=== PATIENT | female | born 1950 | race Caucasian/White ===

== ENCOUNTER 2017-09-28 19:46 | Inpatient (IN) | payer MEDICARE ==
[~2017-09-28] VITALS: Ht 160 cm; Wt 69.9 kg
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
--- NOTE | 2017-09-28 20:17 | PCM.EKG ---
[facility] Test Date: 2017-09-28 Test Time: 20:18:44 Pat Name: BI WARD Department: Room: Gender: F Electric Power Line Repairer: KAMILLA : 1950 Requested By: BRENDAN DAVIS Order Number: [id number] Reading MD: Measurements Intervals [place] Rate: 82 P: 54 GA: 168 QRS: 36 QRSD: 80 T: 63 QT: 394 QTc: 460 Interpretive Statements Normal sinus rhythm Septal infarct, age undetermined Abnormal ECG No previous ECG available for comparison Please click the below link to view image of tracing.
[2017-09-28 20:18] LABS: BASOPHIL # 0.1 10^3/uL (0.0-0.1); BASOPHIL % 0.9 % (0.0-0.2); EOSINOPHIL # 0.2 10^3/uL (0.0-0.2); EOSINOPHIL % 2.1 % (0.0-5.0); HEMOGLOBIN 13.2 g/dL (12.0-15.0); LYMPHOCYTES # 2.5 10^3/uL (1.0-4.8); LYMPHOCYTES % 31.6 % (24.0-44.0); MEAN CELL HGB 30.1 pg (26-34); MEAN CELL HGB CONCENTRATION 33.6 g/dL (33-37); MEAN CORP VOLUME 89.5 fL (78-100); MEAN PLATELET VOLUME 8.5 fL (7.8-11.0); MONOCYTES # 0.8 10^3/uL (0.3-0.8); MONOCYTES % 9.5 % (5.0-12.0); NEUTROPHIL # 4.5 10^3/uL (1.8-7.7); NEUTROPHILS % 55.5 % (41.0-85.0); RED CELL DISTRIBUTION WIDTH 13.7 % (11.5-14.5)
[2017-09-28] MEDS ORDERED: LISI10TA2 PO (20:19)
[2017-09-28] MEDS ORDERED: DULO60CA7 PO (20:19)
[2017-09-28] MEDS ORDERED: DONE5TAB7 PO (20:19)
[2017-09-28] MEDS ORDERED: MEMA10TA PO (20:19)
[2017-09-28] MEDS ORDERED: ALPR0.254 PO (20:19)
[2017-09-28 20:34] LABS: ALANINE AMINOTRANSFERASE(ML) 24 U/L (12-78); ALKALINE PHOSPHATASE 131 U/L (50-136); ASPARTATE AMINO TRANSFERASE 13 U/L (0-35); CALCIUM 9.2 mg/dL (8.4-10.5); CARBON DIOXIDE 26.4 mmol/L (20.0-32); GLUCOSE 92 mg/dL (70-110)
[2017-09-28 20:35] LABS: ACETAMINOPHEN < 2 ug/mL (10-30)
--- NOTE | 2017-09-28 21:07 | NUR ---
URINE COLLECTED AND TAKEN TO LAB
[2017-09-28 21:08] LABS: BILIRUBIN,URINE NEGATIVE (NEGATIVE); UROBILINOGEN,URINE NORMAL (NEGATIVE)
[2017-09-28 21:15] VITALS: BP 143/81
[2017-09-28 21:15] LABS: APPEARANCE,URINE CLOUDY (CLEAR); UA COLOR YELLOW (YELLOW)
--- NOTE | 2017-09-28 21:45 | NUR ---
DR CHAMBERLAIN EDP ON PHONE WITH CHAMBERLAIN FOR ADMISSION
[2017-09-28] MEDS ORDERED: ATIVAN IM PRN (22:30)
[2017-09-28 23:00] VITALS: BP 146/83
[2017-09-28] MEDS ORDERED: NAMENDA PO ONE ×2 (23:00)
[2017-09-28] MEDS ORDERED: ARICEPT PO ONE (23:00)
[2017-09-28] MEDS: ATIVAN PO PRN (23:12)
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
--- NOTE | 2017-09-28 23:36 | NUR ---
medications Patient anxious, crying, afraid of being in a new place, ativan 0.5mg given po per prn orders at 2312, RN notified
--- NOTE | 2017-09-29 00:13 | NUR ---
medications No adverse reactions noted at this time to Initial dose of ativan prn
--- NOTE | 2017-09-29 06:09 | NUR ---
PIRP P- DTS/DTO,ALTERATION IN MOOD AND ALTERED THOUGHT PROCESS I- PROVIDE MEDICATION ORDERED,Q 15 MIN. MONITORING,PROVIDE SAFE AND SUPPORTIVE ENVIRONMENT. R- PT. WAS COOPERATIVE BUT FORGETFUL AND REQUIRED ASSIST FOR HS ADLS. TOOK MEDICATION ORDERED. HAS RESTED IN BED WITH EYES CLOSED FOR 5.25 HOURS OF THIS TIME. P-WILL CONTINUE WITH CURRENT TX. PLAN.
[2017-09-29 06:41] LABS: CHOLESTEROL 234 mg/dL (120-240); HDL CHOLESTEROL 25 mg/dL (32-96)
[2017-09-29 07:52] VITALS: BP 120/87
[2017-09-29] MEDS: NAMENDA PO SCH ×2 (08:54→20:58)
[2017-09-29] MEDS: CELEXA PO SCH (08:54)
[2017-09-29] MEDS ORDERED: ARICEPT PO SCH (09:00)
--- NOTE | 2017-09-29 09:59 | DIREP ---
PROCEDURE:CHEST 2 VIEWS COMPARISON:[facility], CR, XRAY CHEST 2 VWS, 12/23/2016, 12:38 PM. INDICATIONS:MEDICAL CLEARANCE FOR [facility] FINDINGS: LUNGS/PLEURA:Chronic mild elevation of the right hemidiaphragm. No significant pulmonary parenchymal abnormalities or pleural effusion. Right upper chest surgical clips. CARDIAC:Normal cardiac silhouette, median sternotomy and normal pulmonary vascularity. Prominent thoracic aortic tortuosity and calcification. MEDIASTINUM:Normal. BONES:Mild thoracic spondylosis OTHER:No additional findings. CONCLUSION:No acute cardiopulmonary process or significant change. Dictated by: Marisol Huitron MD on 09/29/2017 at 09:55 AM
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
[2017-09-29] MEDS: BACTRIM DS PO SCH ×2 (12:55→20:58)
[2017-09-29] MEDS: ATIVAN PO PRN (13:11)
--- NOTE | 2017-09-29 13:11 | NUR ---
agitation pt has become severely agitated, asking for , and crying. ativan administered per prn order. no s/s of distress noted. pt sitting in dayroom participating in group
--- NOTE | 2017-09-29 16:18 | NUR ---
GMAS SCORE 04/23: FINDINGS INDICATE MILD DEPRESSION. Addendum: 09/30/17 at 1618 by Irais MESSER CM Amended: Links added.
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
--- NOTE | 2017-09-29 16:24 | NUR ---
MMSE SCORE 0: PT WAS NOT ABLE TO COGNITIVELY PARTICIPATE IN EXAM DUE TO COGNITION. PT IS NOT ABLE TO ANSWER QUESTIONS OR COMPLETE FULL SENTENCES. Addendum: 09/30/17 at 1626 by Irais MESSER Amended: Links added.
--- NOTE | 2017-09-29 16:56 | NUR ---
PIRP: P: Altered thought process, DTS, DTO I: Provide medications as ordered by physician. Encourage attendance and participation of all groups. Provide groups that require focus and concentration. Assist patient in differentiating between internal and external reality. Allow patient to voice feelings and concerns. R: Patient has taken all medications this shift. She has participated in groups but remains confused and requires prompting. She has been tearful and her memory recall is poor. At times she is unable to formulate complete sentences. She has not made any suicidal comments and has not been combative. P: Continue current plan of care.
[2017-09-29 19:20] VITALS: BP 140/90
[2017-09-29] MEDS: ARICEPT PO SCH (20:58)
--- NOTE | 2017-09-30 05:59 | NUR ---
PIRP P DTS, DTO, Altered thought process, Alteration in mood I Medication compliance to be stressed. Observe patient every 15 minutes for safety. Observe patient for self harm behaviors. Encourage patient to attend groups. Encourage patient to verbalize thoughts and feelings. R Patient has been medication compliant. Patient has been observed every 15 minutes and has been safe. Patient has not displayed any self harm behaviors. Patient to attend groups today. Patient has not verbalized any thoughts this evening. P continue plan of care.
[2017-09-30] MEDS: ATIVAN PO PRN (07:07)
--- NOTE | 2017-09-30 07:09 | NUR ---
agitation pt is severely agitated with uncontrollable crying and shaking. Ativan administered per prn order no s/s of distress noted will cont to monitor
[2017-09-30] MEDS ORDERED: ZESTRIL ONE (07:47)
[2017-09-30] MEDS: BACTRIM DS PO SCH ×2 (07:49→21:34)
[2017-09-30] MEDS: CELEXA PO SCH (07:49)
[2017-09-30] MEDS: NAMENDA PO SCH ×2 (07:49→21:34)
[2017-09-30 08:30] VITALS: BP 151/87
[2017-09-30] MEDS: ZESTRIL PO SCH (08:33)
--- NOTE | 2017-09-30 09:09 | NUR ---
VSEE Pt was seen by Dr. Saunders via telemed. Received orders to increase scheduled Celexa and start scheduled Ativan, see EMAR.
[2017-09-30] MEDS: ATIVAN PO SCH ×2 (10:15→21:34)
[2017-09-30] MEDS ORDERED: CELEXA PO SCH (10:30)
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
--- NOTE | 2017-09-30 16:25 | NUR ---
BIOPSYCHOSOCIAL: SS WAS UNABLE TO COMPLETE BIOPSYCHOSOCIAL DUE TO COGNITION. PT IS UNABLE TO RECALL FAMILY INFORMATION OR IF SHE HAS ANY SIBLINGS OR CHILDREN. PT AT THIS TIME IS NOT EVEN ABLE TO COMPLETE FULL SENTENCES. Addendum: 09/30/17 at 1626 by Irais MESSER Amended: Links added.
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
[2017-09-30 20:18] VITALS: BP 130/72
[2017-09-30] MEDS: ARICEPT PO SCH (21:34)
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
--- NOTE | 2017-10-01 06:03 | NUR ---
PIRP P DTO, Altered thought process, Alteration in Mood I Patient will be observed every 15 minutes for safety. Medication compliance to be stressed. Patient will not exhibit any threatening or assaultive behavior. Observe patient for unusual behavior.Importance of sleep to be stressed. R Patient has been observed every 15 minutes and has done well. Patient has been medication compliant. No threatening behavior has been observed. Patient has been observed to be crying twice but for short periods of time. Patient has slept for 8 hours. P Continue plan of care.
[2017-10-01 07:27] VITALS: BP 123/70
[2017-10-01] MEDS: NAMENDA PO SCH ×2 (08:13→20:50)
[2017-10-01] MEDS: BACTRIM DS PO SCH ×2 (08:13→20:50)
[2017-10-01] MEDS: CELEXA PO SCH (08:14)
[2017-10-01] MEDS: ATIVAN PO SCH ×2 (08:14→20:50)
[2017-10-01] MEDS: ZESTRIL PO SCH (08:14)
--- NOTE | 2017-10-01 17:32 | NUR ---
PIRP P: DTO, Altered thought process, Alteration in mood I: Assess reasons for depression and anxiety, monitor for changes in usual behavior, provide safe and supportive environment, give clear and simple instructions, redirect with verbalization, provide 1:1 to encourage expression of feelings, assess for delusions, assist with differentiating between internal and external reality, re-orient to surroundings as needed, give medications as ordered, teach relaxation techniques, reinforce unit rules R: Pt has had withdrawn, tearful, anxious affect majority of shift. Restless @ times, is able to be redirected with verbalization. Poor memory, requires frequent redirection. Unable to rate depression and anxiety, stated, "I just want to see my . I've got so many grandkids, and they don't even know I'm here." Exhibits word salad @ times, only alert and oriented to self. Isolates to room majority of shift, will come out for meals and snacks. P: Pt unable to voice plan, voices wishes to go home.
[2017-10-01 19:30] VITALS: BP 126/70
[2017-10-01] MEDS: ARICEPT PO SCH (20:50)
--- NOTE | 2017-10-02 05:50 | NUR ---
PIRP P DTS , Altered thought process, Alteration in mood. I Medication compliance to be encouraged. Patient to be monitored every 15 minutes for safety. Decrease self harming behaviors. Good diet encouraged. R Patient has been medication compliant. Patient has been monitored for safety every 15 minutes and has done well. Patient has not displayed any self harming behaviors. Patient ate 100 % of her hs snack. P Continue plan of care.
[2017-10-02] MEDS: CELEXA PO SCH (08:38)
[2017-10-02] MEDS: ATIVAN PO SCH ×2 (08:38→20:10)
[2017-10-02] MEDS: BACTRIM DS PO SCH ×2 (08:38→20:10)
[2017-10-02] MEDS: ZESTRIL PO SCH (08:39)
[2017-10-02] MEDS: NAMENDA PO SCH ×2 (08:45→20:09)
[2017-10-02 09:07] VITALS: BP 114/79
--- NOTE | 2017-10-02 15:51 | NUR ---
PIRP P: Altered thought process, alteration in mood I: Assess for delusional thoughts, assist with differentiating between internal and external reality, give clear and simple instructions, redirect with verbalization, provide safe and supportive environment, provide task-oriented activities, re-orient to surroundings, teach relaxation techniques, reinforce unit rules, provide 1:1 to encourage expression of feelings, give medications as ordered R: Pt has had tearful, anxious affect throughout shift. Does not initiate interaction with peers, but does initiate interaction with staff. Rates depression @ 10 and anxiety @ 8 on 0-10 scale. Has poor memory and requires frequent redirection and re-orientation. Voices wanting to go home to her , or wanting to see . Is able to be redirected with verbalization. Takes medications as ordered, will come out to day room for meal times, participates in some group activities. Has not exhibited threatening or combative behaviors, is not actively exit-seeking. P: Pt reports she will stay until she is discharged by the doctor.
[2017-10-02 19:20] VITALS: BP 116/80
[2017-10-02] MEDS: ARICEPT PO SCH (20:09)
--- NOTE | 2017-10-03 02:48 | NUR ---
PIRP P- ALTERATION IN MOOD AND ALTERATION IN THOUGHT PROCESS I- PROVIDE SAFE AND SUPPORTIVE ENVIRONMENT,Q 15 MIN. MONITORING,PROVIDE MEDICATION ORDERED. R- PT. ORIENTED TO NAME NOT MONTH OR YEAR. DENIED DEPRESSION AND RATED ANXIETY 2. PT. ATTENDED GROUP,ATE SNACKS,PARTICIPATED IN EXERCISES. PT. WAS RESTLESS AND STATED SHE NEEDED TO GO HOME TO HER . REQUIRED REDIRECTING FREQUENTLY BUT EASILY REDIRECTED. TOOK MEDICATION ORDERED. MEDICATION EDUCATION PROVIDED ON LISINOPRIL BUT PT. DID NOT HAVE RECALL ON THE MEDICATION. HAS RESTED IN BED WITH EYES CLOSED FOR 5.50 HOURS OF THIS TIME. P- WILL CONTINUE WITH CURRENT TX. PLAN.
[2017-10-03 08:09] VITALS: BP 111/63
[2017-10-03] MEDS: ZESTRIL PO SCH (08:16)
[2017-10-03] MEDS: CELEXA PO SCH (08:16)
[2017-10-03] MEDS: ATIVAN PO SCH ×3 (08:16→20:28)
[2017-10-03] MEDS: BACTRIM DS PO SCH ×2 (08:16→20:28)
[2017-10-03] MEDS: NAMENDA PO SCH ×2 (08:16→20:28)
--- NOTE | 2017-10-03 16:16 | NUR ---
PIRP: P: ALTERED MOOD, ALTERED THOUGHT PROCESS I: Provide medications as ordered by physician. Encourage attendance and participation of all groups. Allow patient to voice feelings and concerns. Provide groups that require focus and concentration. Assist patient in differentiating between internal and external reality. R: Patient has taken all medications as ordered, but remains tearful and anxious. She is confused but has not been seen hallucinating. She has excessive worry. She has been at times easy to distract but remains focused on her and wanting to go home. She has participated in some groups. P: Continue current plan of care. Dr. Saunders saw patient today and made medication changes. Ativan 0.5 mg po TID and Celexa 30 mg po daily
[2017-10-03 19:10] VITALS: BP 101/63
[2017-10-03] MEDS: ARICEPT PO SCH (20:28)
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
--- NOTE | 2017-10-04 03:10 | NUR ---
PIRP- P- ALTERATION IN MOOD AND ALTERED THOUGHT PROCESS I-PROVIDE MEDICATION ORDERED,Q 15 MIN. MONITORING,PROVIDE 1:1 INTERVENTION ALLOWING PT. TO EXPRESS THOUGHTS AND FEELINGS. R- PT. WAS ORIENTED TO NAME NOT MONTH OR YEAR.DENIES DEPRESSION AND ANXIETY. PT. WAS TEARFUL AND STATED SHE WANTED TO GO HOME TO HER . MINIMALLY PARTICIPATED IN GROUP WITH PROMPTING. ATE PART OF HER SNACK.MEDICATION EDUCATION PROVIDED AND PT. TOOK MEDICATION ORDERED. P- WILL CONTINUE WITH CURRENT TX. PLAN.-
[2017-10-04 07:40] VITALS: BP_SYST 128; BP_SYST 150; BP_DIAS 70; BP_DIAS 72
[2017-10-04] MEDS: ZESTRIL PO SCH (09:10)
[2017-10-04] MEDS: CELEXA PO SCH (09:10)
[2017-10-04] MEDS: ATIVAN PO SCH ×3 (09:10→20:33)
[2017-10-04] MEDS: NAMENDA PO SCH ×2 (09:10→20:33)
[2017-10-04] MEDS: BACTRIM DS PO SCH ×2 (09:10→20:33)
--- NOTE | 2017-10-04 16:37 | NUR ---
PIRP: P: ALTERED MOOD I: Provide medications as ordered by physician. Encourage attendance and participation of all groups. Allow patient to voice feelings and concerns. Monitor patient behavior for changes that may indicate risk of injury to self. R: Patient has been less tearful today but remains confused asking for her . She has participated in groups. Scheduled Ativan TID has seemed to help patient with tearfulness. and anxiety. P: Continue current plan of care.
[2017-10-04 20:10] VITALS: BP 121/79
[2017-10-04] MEDS: ARICEPT PO SCH (20:33)
--- NOTE | 2017-10-05 05:46 | NUR ---
PIRP P DTS,DTO, altered thought process, alteration in mood I Medication compliance to be continued. Decrease self harm behaviors. Monitor patient every 15 minutes, Decrease delusions R Patient has been medication compliant. Patient has not displayed any self harm behaviors . Patient has been observed every 15 minutes. Patient has not displayed any behavior this evening of delusions. Patient has walked in hallway and has been pleasant. P Continue plan of care
[2017-10-05 07:45] VITALS: BP 136/85
[2017-10-05] MEDS: BACTRIM DS PO SCH ×2 (09:06→20:56)
[2017-10-05] MEDS: NAMENDA PO SCH ×2 (09:06→20:56)
[2017-10-05] MEDS: ATIVAN PO SCH ×3 (09:06→20:56)
[2017-10-05] MEDS: ZESTRIL PO SCH (09:07)
[2017-10-05] MEDS: CELEXA PO SCH (09:07)
--- NOTE | 2017-10-05 09:16 | NUR ---
Tx team Pt was seen by Dr. Saunders and tx team. Received orders to increase scheduled Celexa, see EMAR.
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
--- NOTE | 2017-10-05 17:50 | NUR ---
PIRP P: Altered thought process, alteration in mood I: Assess reasons for depression and anxiety, assess for psychotic symptoms, assist with differentiating between internal and external reality, give clear and simple instructions, redirect with verbalization, teach relaxation techniques, provide task-oriented activities, re-orient to surroundings as needed, educate regarding inpatient hospitalization, provide 1:1 to encourage expression of feelings, provide safe and supportive environment, give medications as ordered R: Pt has had tearful, anxious affect sporadically throughout shift. Exhibits word salad and thought blocking @ times, is able to follow simple commands. Denies depression, but is tearful and states, "I want my ." Forgetful, isolates to room @ times. Pleasant when approached by staff and peers; initiates interaction and maintains appropriate boundaries. Has not exhibited threatening or combative behaviors, frequently voices wanting to go home. Participates in group activities but requires active engagement to complete activities. Takes medications as ordered. P: Pt seen by Annabel Yuan increased.
[2017-10-05 20:30] VITALS: BP 100/69
[2017-10-05] MEDS: ARICEPT PO SCH (20:56)
--- NOTE | 2017-10-06 05:15 | NUR ---
PIRP P DTS, DTO , Altered Thought process, Alteration in mood. I Medications to be given as directed by Dr, Patient to be observed every 15 minutes and more often as needed. Reorient patient as needed. Provide one on one time for patient to verbalize . Encourage sleep. R Patient has been medication compliant. Patient has been observed every 15 minutes and has done well. Patient has been reminded that she is in the hospital and that there are visiting hours and her is not here at this time. Patient says Oh OK, then asks again in next few minutes. Patient has slept 7.25 hours so far. P Continue plan of care.
[2017-10-06 07:45] VITALS: BP 110/67
[2017-10-06] MEDS: CELEXA PO SCH (09:29)
[2017-10-06] MEDS: ZESTRIL PO SCH (09:30)
[2017-10-06] MEDS: BACTRIM DS PO SCH ×2 (09:30→20:40)
[2017-10-06] MEDS: NAMENDA PO SCH ×2 (09:30→20:40)
[2017-10-06] MEDS: ATIVAN PO SCH ×3 (09:31→20:40)
[2017-10-06] MEDS: ATIVAN PO PRN (16:49)
--- NOTE | 2017-10-06 16:51 | NUR ---
BEHAVIOR NOTE: Patient has tearful, anxious behavior and can not be redirected. Ativan 0.5 mg po PRN given
--- NOTE | 2017-10-06 17:39 | NUR ---
PIRP P: Altered thought process, alteration in mood I: Monitor for changes in usual behavior, assess reasons for depression and anxiety, provide safe and supportive environment, give clear and simple instructions, assess for hallucinations and delusions, assist with differentiating between internal and external reality, redirect with verbalization, provide 1:1 to encourage expression of feelings, give medications as ordered, provide task-oriented activities, q15 min monitoring R: Pt has had withdrawn, tearful affect throughout shift. Denies depression, but does report anxiety @ 10 on 0-10 scale. States, "I'm not really depressed. I just want to see my ." Pt is alert and oriented to self, exhibits word salad and thought blocking @ times. Requires frequent redirection with verbalization d/t confusion and delusions. Required PRN medication for escalating anxiety and tearfulness. Takes medications as ordered, requires prompting with ADLs and feedings. P: Pt voices wishes to go home. Unable to voice tx plan.
[2017-10-06 19:20] VITALS: BP 97/59
[2017-10-06] MEDS: ARICEPT PO SCH (20:40)
--- NOTE | 2017-10-07 05:21 | NUR ---
PIRP P DTS, Altered thought process,Alteration in mood. I Medications to be given as prescribed by Dr, Decrease self harm behaviors. Observe patient every 15 minutes for safety. Encourage patient to attend group daily. Maintain healthy diet. Encourage 8 hours of sleep nightly. R Patient has been medication compliant and has not displayed ay self harm behaviors. Patient has been observed for safety every 15 minutes. Patient had snack last pm and does eat a healthy diet. Patient has been sleeping and has only got up to go to the bathroom. Patient has had a restful night. P Continue plan of care
[2017-10-07] MEDS: CELEXA PO SCH (08:46)
[2017-10-07] MEDS: NAMENDA PO SCH ×2 (08:46→20:54)
[2017-10-07] MEDS: ATIVAN PO SCH ×3 (08:46→20:54)
[2017-10-07] MEDS: BACTRIM DS PO SCH (08:47)
[2017-10-07] MEDS: ZESTRIL PO SCH (08:47)
[2017-10-07 08:55] VITALS: BP 111/73
--- NOTE | 2017-10-07 13:48 | NUR ---
PLACEMENT: SS VISITED WITH PT'S DAUGHTER REGARDING DISCHARGE PLANNING. PT'S DAUGHTER STATED "WE NEED TO GET HER IN A [facility] MEDICAID PENDING. WE DO NOT HAVE A PREFERENCE, BUT WOULD LIKE HER WITHIN AND HOUR AND A HALF DISTANCE AND SOMEWHERE THAT SPECIALIZES IN MEMORY CARE". SS REACHED OUT TO [facility] BUT THEY CURRENTLY DO NOT HAVE A BED AVAILABLE IN THEIR LOCKED UNIT. SS REACHED OUT TO [facility] WITH [facility], BUT UNFORTUNATELY THEIR CORPORATE DID NOT WANT TO ACCEPT PT AFTER REVIEWING CLINICAL. SS REACHED OUT TO [place] [id number], AND FINALLY SPOKE TO [facility] WHO STATED THEY CURRENTLY HAVE A WAITING LIST FOR THEIR MEDICAID PENDING BEDS AND DO NOT SPECIALIZED IN MEMORY CARE TO TRY THEIR SISTER FACILITY [facility]. SS REACHED OUT TO THE [facility]) AND SPOKE TO RICARDA WHOM STATED THEIR MEMORY CARE UNIT IS CURRENTLY FULL, AND THEY DO NOT TAKE MEDICAID PENDING PATIENTS AND CURRENTLY HAVE A WAIT LIST. SS REACHED OUT TO THE [facility] AND SPOKE TO VINCE CANAS WHOM STATED THEY DID NOT HAVE A LOCKED UNIT OR SPECIALIZE IN MEMORY CARE. SS REACHED OUT TO [facility], BUT THEY DO NOT HAVE A LOCKED UNIT. SS WILL REVISIT WITH PT'S DAUGHTER AND LET HER KNOW HER FINDINGS TO SEE IF [facility], OR [facility] WOULD BE OKAY TO LOOK AT FOR PLACEMENT. SS TO CONTINUE TO FOLLOW AND ASSIST WITH DISCHARGE PLANNING.
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
--- NOTE | 2017-10-07 17:31 | NUR ---
anxiety pt is severely anxious, crying, and unable to console. ativan administered per prn order
--- NOTE | 2017-10-07 17:47 | NUR ---
PIRP: P: ALTERED MOOD. ALTERED THOUGHT PROCESS. I: Provide medications as ordered by physician. Encourage attendance and participation of all groups. Allow patient to voice feelings and concerns. Provide groups that require focus and attention. Assist patient in differentiating between internal and external reality. R: Patient has taken all medications as ordered and has participated in some groups. She continues to be tearful and anxious although she is on scheduled Ativan and received a Ativan PRN today. Her Bactrim has been discontinued. She is confused and disoriented and fixated on seeing her and going home. P: Continue current plan of care.
[2017-10-07 19:20] VITALS: BP 101/62
[2017-10-07] MEDS: ARICEPT PO SCH (20:55)
--- NOTE | 2017-10-08 02:12 | NUR ---
PIRP- P- ALTERED MOOD AND ALTERED THOUGHT PROCESS I-PROVIDE MEDICATION ORDERED,PROVIDE SAFE AND SUPPORTIVE ENVIRONMENT,PROVIDE 1:1 INTERVENTION ALLOWING PT. TO EXPRESS THOUGHTS AND FEELINGS. Q 15 MIN. MONITORING. R-PT. WAS ORIENTED TO NAME NOT MONTH OR YEAR. DENIES DEPRESSION AND ANXIETY THIS SHIFT. PT. WAS TEARFUL TWICE IN GROUP STATING SHE WANTED TO GO HOME TO HER . ATE SNACKS AND PARTICIPATED IN EXERCISES MINIMALLY. EXPRESSED THAT SHE LIKED THE MUSIC. MEDICATION EDUCATION PROVIDED BUT PT. WAS UNABLE TO VOICE RECALL AFTERWARD. PLEASANT AFFECT. TOOK MEDICATION ORDERED. P-WILL CONTINUE WITH CURRENT TX. PLAN.
[2017-10-08 07:41] VITALS: BP 106/67
[2017-10-08] MEDS: ATIVAN PO SCH ×3 (08:14→20:48)
[2017-10-08] MEDS: NAMENDA PO SCH ×2 (08:14→20:48)
[2017-10-08] MEDS: CELEXA PO SCH (08:14)
[2017-10-08] MEDS: ZESTRIL PO SCH (08:14)
--- NOTE | 2017-10-08 18:00 | NUR ---
PIRP: P: DTS, DTO, ALTERATION IN MOOD I: MONITOR PT. Q 15 MINUTES, PROVIDE MEDICATION ORDERED BY PHYSICIAN, PROVIDE QUIET ENVIRONMENT FOR SLEEP AT NIGHT,PROVIDE REALITY ORIENTATION NEEDED, PROVIDE SAFE AND SUPPORTIVE ENVIRONMENT, ENCOURAGE GROUP ATTENDANCE AND PARTICIPATION, R: PT. IS MONITORED Q 15 MINUTES FOR SAFETY AND PT. ROOM IS ACROSS FROM THE DESK, PT. IS TAKING MEDS ORDERED BY PHYSICIAN, PT. HAS A SAFE AND SUPPORTIVE ENVIRONMENT. PT. SLEPT 6.75 HOURS LAST NIGHT. PT. REFUSES TO PARTICIPATE IN GROUP. PT IS VERY TEARFUL MOST OF THE DAY. PT. WANTS TO TO [place] AND SEE HER . THIS AFTERNOON SHE WAS TEARFUL AND AGITATED BECAUSE SHE COULDN'T GO HOME. PRN ATIVAN 0.5 GIVEN AT 1649. PT. HAS CALMED DOWN AT THIS TIME. PT. RATES HER DEPRESSION AND ANXIETY AN 8, PT. DENIES ANY S/H IDEATION. PT. IS ORIENTED X 1. ORIENTED TO NAME ONLY. PT. HAS NOT BEEN EXIT SEEKING TODAY. P: CONTINUE CURRENT TX. PLAN
[2017-10-08 19:30] VITALS: BP 105/72
[2017-10-08] MEDS: ARICEPT PO SCH (20:48)
--- NOTE | 2017-10-09 06:17 | NUR ---
PIRP- P- DTS,DTO AND ALTERATION IN MOOD I- PROVIDE SAFE AND SUPPORTIVE ENVIRONMENT,PROVIDE MEDICATION ORDERED,Q 15 MIN. MONITORING. R-PT. WAS ORIENTED TIMES 1 TO SELF . PT. DENIED DEPRESSION AND ANXIETY. WAS TEARFUL AT TIMES. TOOK MEDICATION ORDERED. DIDN'T EXHIBIT DTO OR DTS THIS SHIFT. HAS RESTED IN BED WITH EYES CLOSED FOR 7.5 HOURS THIS SHIFT. PT. STATES FREQUENTLY THAT SHE SHE WANTED TO GO HOME TO HER . P- WILL CONTINUE WITH CURRENT TX. PLAN.
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
[2017-10-09 08:01] VITALS: BP 99/62
[2017-10-09] MEDS: NAMENDA PO SCH ×2 (08:03→20:46)
[2017-10-09] MEDS: CELEXA PO SCH (08:03)
[2017-10-09] MEDS: ATIVAN PO SCH ×3 (08:03→20:46)
[2017-10-09] MEDS: ZESTRIL PO SCH (09:00)
[2017-10-09] MEDS: ATIVAN PO PRN (10:34)
--- NOTE | 2017-10-09 10:34 | NUR ---
anxiety pt anxious and has uncontrollable crying. unable to console. is aggressive stating "I want my " unable to redirect pt. ativan administered per prn order no s/s of distress noted will monitor
--- NOTE | 2017-10-09 11:45 | NUR ---
statues update pt sitting in day room. s/s of anxiety have been resolved. no s/s of distress noted
--- NOTE | 2017-10-09 16:06 | NUR ---
PIRP: P: ALTERED THOUGHT PROCESS, ALTERED MOOD i: Q 15 MINUTE CHECKS FOR SAFETY, PROVIDER MEDS PRESCRIBED BY PHYSICIAN, PROVIDE SAFE AND SUPPORTIVE ENVIRONMENT, CLEAR AND SIMPLE INSTRUCTIONS, PROVIDE 1:1 FOR PT. TO EXPRESS THOUGHTS AND CONCERNS p; Q 15 MINUTE CHECKS BY STAFF, PT, IS TAKING MEDICATIONS PRESCRIBED BY PHYSICIAN, PT IS IN A SAFE AN SUPPORTIVE ENVIRONMENT. PT. IS ABLE TO UNDERSTAND INSTRUCTIONS. PT. IS ABLE TO EXPRESS THOUGHTS AND CONCERNS. PT. I TEARFUL. SHE WANTS TO GO HOME AND SEE HER . PT. RATES DEPRESSION AND ANXIETY A 6. PT. SEEN BY DR. RIVAS VIA VSEE. ORDER RECEIVED TO START RISPERDAL 0.25 MG BID. PT. HAD PRN ATIVAN .5 MG AT 1040. PT CALMED DOWN. P: CONTNUE CURRENT TX PLAN.
[2017-10-09 19:30] VITALS: BP 102/61
[2017-10-09] MEDS: ARICEPT PO SCH (20:46)
[2017-10-09] MEDS: RISPERDAL PO SCH (20:46)
--- NOTE | 2017-10-09 21:47 | NUR ---
medications No adverse reactions noted at this time to ID of Risperdone given this HS
--- NOTE | 2017-10-10 02:05 | NUR ---
PIRP- P- ALTERED THOUGHT PROCESS,DTO AND DTS I- PROVIDED MEDICATION ORDERED,Q 15 MIN. MONITORING,PROVIDE SAFE AND SUPPORTIVE ENVIRONMENT.PROVIDE MEDICATION EDUCATION. R- ORIENTED TO NAME NOT MONTH OR YEAR. DENIES DEPRESSION AND ANXIETY BUT IS TEARFUL AT TIMES. ATTENDED GROUP AND ATE SNACKS. PT. TALKED ABOUT WANTING TO GO HOME TO HER AND WAS ANXIOUS. TOOK MEDICATION ORDERED. MEDICATION EDUCATION WAS PROVIDED. ASSISTED PT. WITH HS CARE . EXHIBITED NO DTO OR DTS THIS SHIFT. PT. IS RESTING IN BED WITH EYES CLOSED AT THIS TIME. P- WILL CONTINUE WITH CURRENT TX. PLAN.
[2017-10-10 07:52] VITALS: BP 104/70
[2017-10-10] MEDS: CELEXA PO SCH (09:26)
[2017-10-10] MEDS: ATIVAN PO SCH ×3 (09:26→20:44)
[2017-10-10] MEDS: RISPERDAL PO SCH ×2 (09:26→20:44)
[2017-10-10] MEDS: NAMENDA PO SCH ×2 (09:26→20:44)
[2017-10-10] MEDS: ZESTRIL PO SCH (09:27)
--- NOTE | 2017-10-10 15:24 | NUR ---
PLACEMENT CONTINUED: SS REACHED OUT TO [facility] IN [place] TO SEE IF THEY HAD BED AVAILABILITY. ELZIABETH STATED THEY HAD ONE FEMALE BED AVAILABLE, BUT HAD OTHER PEOPLE LOOKING AT IT SO IT WAS MORE OF A WHO COULD GET ALL THE PAPERWORK TURNED IN FIRST TYPE OF THING. SS LET ELIZABETH KNOW THAT PT'S MOTHER WAS AT THEIR FACILITY AND SHE DID NOT KNOW IF THAT WOULD BE AN ISSUE OR NOT. ELIZABETH STATED "I DON'T THINK IT WOULD BE AN ISSUE". SS FAXED OVER PAPERWORK AND IS WAITING TO HEAR BACK FROM [facility] AT THIS TIME.
--- NOTE | 2017-10-10 16:45 | NUR ---
PIRP: P: ALTERED MOOD, ALTERED THOUGHT PROCESS I: Provide medications as ordered by physician. Encourage attendance and participation of all groups. Provide groups that require focus and concentration. Allow patient to voice feelings and concerns. Assist patient in differentiating between internal and external reality. R: Patient has taken all medications as ordered. She has remained confused and tearful/anxious and forgets where the bathroom is. She is tearful and fixated on seeing her and at times can not be consoled. She has not been suicidal or combative. P: Continue current plan of care.
[2017-10-10 19:20] VITALS: BP 102/60
[2017-10-10] MEDS: ARICEPT PO SCH (20:44)
--- NOTE | 2017-10-11 04:57 | NUR ---
PIRP P Altered thought process, Alteration in mood, DTS/O I Patient to remain medication compliant. Monitor patient every 15 minutes for safety. Observe patient for triggers that cause harmful behavior. Encourage patient to sleep 8 hours nightly. R Patient has remained medication compliant. Patient has been monitored for safety and has done well. Patient has not displayed any harmful behavior to herself or others. Patient has slept 8.5 hours so far this evening. Patient has been cooperative with care. P Continue plan of care.
[2017-10-11 07:49] VITALS: BP 116/73
[2017-10-11] MEDS ORDERED: ATIVAN ONE (08:20)
[2017-10-11] MEDS: NAMENDA PO SCH ×2 (08:23→20:45)
[2017-10-11] MEDS: CELEXA PO SCH (08:23)
[2017-10-11] MEDS: RISPERDAL PO SCH ×2 (08:23→20:45)
[2017-10-11] MEDS: ATIVAN PO SCH ×3 (08:23→20:45)
[2017-10-11] MEDS: ZESTRIL PO SCH (08:24)
--- NOTE | 2017-10-11 15:28 | NUR ---
LEGACY: SS REACHED OUT TO ELIZABETH WITH [facility] TO SEE THE STATUS OF PT BUT WAS NOT ABLE TO REACH HER. SS DID LEAVE A VOICEMAIL AND WILL WAIT TO HEAR BACK FROM ELIZABETH. SS REACHED OUT TO [facility] WHO STATED THEY DO TAKE PT'S MEDICAID PENDING BUT DO NOT HAVE A LOCKED UNIT. SS ALSO [facility] SKILLED [facility]ARE WHOM STATED THEY DO NOT HAVE A LOCKED UNIT AND HAVE A LIST FOR MEDICAID PENDING BEDS. SS WILL WAIT TO HEAR BACK FROM PT'S DAUGHTER OR LEGACY REGARDING DISCHARGE PLANNING.
--- NOTE | 2017-10-11 17:46 | NUR ---
NOTIFIED DR. ALVAREZ: Patient complaining of pain in rectum visible hemorrhoid noted. Phone call placed to Dr. Alvarez and message left to call unit.
--- NOTE | 2017-10-11 18:07 | NUR ---
PIRP: P: ALTERED THOUGHT PROCESS I: Provide medications as ordered by physician. Assist patient in differentiating between internal and external reality. Encourage attendance and participation of all groups. Provide groups that require focus and concentration. R: Patient has taken all medications as ordered and has participated in groups. She remains extremely confused and requires assistance with ADL's and doesn't know how to go to the bathroom. She has been tearful most of the day asking "Can I go home and I want to see my ". P: Continue current plan of care. Order received for Preparation H cream.
[2017-10-11 19:20] VITALS: BP 94/58
[2017-10-11] MEDS: ARICEPT PO SCH (20:45)
--- NOTE | 2017-10-12 06:04 | NUR ---
PIRP P DTS, Altered thought process, Alteration in mood I Encourage medication compliance. Observe every 15 minutes for safety. Observe for self harming behavior. Encourage 8 hours of sleep. R Patient has remained medication compliant. Patient has been observed every 15 minutes and has done well. Patient has not displayed any self harming behavior not spoke of hurting herself or anyone else. Patient has slept 8 hours. P continue plan of care.
--- NOTE | 2017-10-12 08:50 | NUR ---
Tx team Pt was seen by Dr. Fowler and tx team. Became tearful and anxious, received orders to increase scheduled Risperdal and begin nutritional supplements, see EMAR.
--- NOTE | 2017-10-12 08:58 | PRM.PN ---
Mood: UP AND DOWN, LABILE AFFECT Sleep: SLEEPING WELL AT NIGHT Appetite: POOR APPETITE, STARTING BOOST SHAKES Suidical thoughts: NONE REPORTED Homicidal thoughts: NONE REPORTED Recent stressors: STRESS OF MENTAL ILLNESS Family support: , HER HAS CANCER Aggressive Behavior: EXIT SEEKING BEHAVIOR Ability to Perform ADL'sc: NEEDS PROMPTING Psychotic sympstoms: DELUSIONAL THINKING, PARANOIA, ODD THINKING Manic Symptoms: MOOD SWINGS, VERY LABILE, CRYING SPELLS Living situation: WAS LIVING WITH HER IN [facility] Illicit Drug usec: NONE REPORTED Alcoholo use: NONE REPORTED Tobacco use: NONE REPORTED Anxity Symptoms: MODERATE TO HIGH ANXIETY LEVEL Anger/Irritablility: PROBLEMS WITH ANGER AND IRRITABILITY Muscle Strength & Tone: WNL Gait & Station: WNL Appearance: Well groomed/hygience, Casual attire, Normal weight, Appears age stated Attitude & Behaviour: Uncooperative, Poor eye contact, Hostile, Psychomotor agitation Mood & Affect: Iabile, Angry, Depressed Orientation: Disoriented to place, Disoriented to time, Disoriented to situation Attention/Concentration: Poor attention, Poor concentration Speech: Reg rate/vol/rhyth/prosod Judgement/Insight: Poor judgement, Poor insight Thought Process: Loose, Tangential, Circumferential Language: Croatian Thought content/Abnormal/Psych: Delusions Fund of Knowledge: Other Associations: [place] Memory (recent and remote): Recent memory repaired, Remote memory repaired Constitutional: None Neurological: None Psychiatric: Depressed, Anxious, Psychosis, Crying [place] I: DELUSIONAL DISORDER, DEPRESSION, ANXIETY, DEMENTIA [place] II: DEFERRED [place] III: REFER TO PMH/MEDICAL CHART [place] IV: STRESS OF MENTAL ILLNESS [place] V: GAF=25 Assessment/Plan Assessment/Plan Assessment/Plan Vital Signs Date Time Temp Pulse Resp B/P (MAP) Pulse Ox O2 Delivery O2 Flow Rate FiO2 10/11/17 19:20 97.9 85 19 94/58 (70) 99 Room Air Allergies Coded Allergies No Known Allergies (Unverified09/28/17) I & O 09/28/17 20:10 Thru 10/11/17 20:00 Intake Total 32395 ml Output Total 342 ml Balance 17287 ml THE PATIENT WAS SEEN BY DR. RIVAS VIA TELEMEDICINE EQUIPMENT (VSEE) ALONG WITH THE TREATMENT TEAM. THE PATIENT'S VITAL SIGNS WERE: BP=91/65, PULSE=72, RESP.=16 , O2 SAT WAS 99% ON RA, TEMP.=98.2. THE PATIENT SLEPT 8.5 HOURS LAST NIGHT. THE PATIENT HAS A POOR APPETITE. THE PATIENT IS GOING TO BE STARTED ON BOOST SHAKES TODAY. THE PATIENT HAS PROBLEMS WITH ANGER AND IRRITABILITY. THE PATIENT HAS CONSTANT CRYING SPELLS. THE PATIENT TAKES NAPS DURING THE DAY. THE PATIENT ISOLATES TO HERSELF. ASSESSMENT: DELUSIONAL DISORDER; PSYCHOSIS; DEMENTIA WITH BEHAVIOR PROBLEMS; MAJOR DEPRESSIVE DISORDER; GENERALIZED ANXIETY DISORDER PLAN: 1) CONTINUE BEHAVIORAL HEALTH MANAGEMENT AT [facility]. 2) INCREASE RISPERDAL TO 0.5MG PO BID. CONTINUE OTHER MEDICATIONS AT CURRENT DOSES. STAFF AGREEABLE WITH THE PLAN. THE PATIENT IS NOT OVERSEDATED FROM HER MEDICATIONS. THE PATIENT DENIES SI OR HI. 16 MINUTES WAS SPENT WITH THE PATIENT IN INSIGHT ORIENTED THERAPY AND SUPPORTIVE THERAPY. Problems: (1) Dementia Status: Acute ICD Code: F03.90 - Unspecified dementia without behavioral disturbance SNOMED: 36926417 (2) Agitated depression Status: Acute ICD Code: F32.2 - Major depressive disorder, single episode, severe without psychotic features SNOMED: 64609640 Patient History: Patient reports no known family medical history. JORDEN RIVAS IV, MD Oct 12, 2017 08:58
[2017-10-12] MEDS: ZESTRIL PO SCH (09:00)
[2017-10-12] MEDS: ATIVAN PO SCH ×3 (09:34→20:47)
[2017-10-12] MEDS: NAMENDA PO SCH ×2 (09:34→20:47)
[2017-10-12] MEDS: CELEXA PO SCH (09:34)
[2017-10-12 10:04] VITALS: BP 91/65
--- NOTE | 2017-10-12 16:13 | NUR ---
LEGACY: SS REATTEMPTED TO CALL AND VISIT WITH ELIZABETH REGARDING PT BUT STILL WAS UNABLE TO REACH HER. VOICEMAIL WAS LEFT.
--- NOTE | 2017-10-12 17:22 | NUR ---
PIRP P: Altered thought process, confusion I: Give medications as ordered, reinforce unit rules, q15 min monitoring, provide safe and supportive environment, give clear and simple instructions, redirect with verbalization, set clear and appropriate boundaries, provide task-oriented activities, provide 1:1 to encourage expression of feelings, teach relaxation techniques R: Pt has had flat, tearful affect throughout shift, irritable @ times. States, "I'm sad because I haven't seen my this morning." Unable to rate anxiety, denies SI/HI. Forgetful, requires frequent re-orientation. Is able to be redirected with verbalization. Isolates to room, but will come out to day room for meals and group activities; will participate with active encouragement. P: Pt started on nutritional supplement d/t poor appetite. Scheduled Risperdal increased.
[2017-10-12 19:30] VITALS: BP 112/70
[2017-10-12] MEDS: ARICEPT PO SCH (20:46)
[2017-10-12] MEDS: RISPERDAL PO SCH (20:47)
--- NOTE | 2017-10-13 05:06 | NUR ---
PIRP P DTS, DTO, Altered thought process, Alteration in mood I Patient to maintain medication compliance. Observe for self harming behaviors and behavioral issues. Observe patient every 15 minutes for safety, Encourage 8 hours fo sleep per night. Encourage one on one time to express feelings/ R Patient has remained medication compliant. Patient has not displayed any self harming behaviors not any behaviors toward other patients. Patient has been observed every 15 minutes. Patient has slept well this evening. Patient speaks of how she wants to talk to and asking where he is. P continue plan of care.
[2017-10-13 08:35] VITALS: BP 104/66
[2017-10-13] MEDS: CELEXA PO SCH (09:32)
[2017-10-13] MEDS: RISPERDAL PO SCH ×2 (09:33→20:37)
[2017-10-13] MEDS: NAMENDA PO SCH ×2 (09:33→20:36)
[2017-10-13] MEDS: ATIVAN PO SCH ×3 (09:34→20:37)
[2017-10-13] MEDS: ZESTRIL PO SCH (09:34)
--- NOTE | 2017-10-13 11:03 | PRM.PN ---
Mood: UP AND DOWN, LABILE MOOD Sleep: SLEPT 9 HOURS LAST NIGHT, NORMALLY SLEEPS WELL Appetite: LOW APPETITE, GETTING BOOST SHAKES, EATS SOME SNACKS Suidical thoughts: NONE REPORTED Homicidal thoughts: NONE REPORTED Recent stressors: STRESS OF MENTAL ILLNESS Family support: Aggressive Behavior: NONE REPORTED, SOME EXIT SEEKING BEHAVIOR Ability to Perform ADL'sc: NEEDS ASSISTANCE Psychotic sympstoms: DELUSIONAL THINKING, ODD THINKING, PARANOIA Manic Symptoms: MOOD SWINGS, CRYING SPELLS Living situation: WAS LIVING AT HOME Illicit Drug usec: NONE REPORTED Alcoholo use: NONE REPORTED Tobacco use: NONE REPORTED Anxity Symptoms: MODERATE ANXIETY LEVEL Anger/Irritablility: SOME ANGER AND IRRITABILITY Muscle Strength & Tone: WNL Gait & Station: Ataxic Appearance: Appears older, Well groomed/hygience, Casual attire, Normal weight Attitude & Behaviour: Uncooperative, Poor eye contact, Psychomotor agitation, Psychomotor retardation Mood & Affect: Euthymic/appr/congruent, Flat, Iabile, Angry, Depressed Orientation: Disoriented to place, Disoriented to time, Disoriented to situation Attention/Concentration: Poor attention, Poor concentration Speech: Impaired Judgement/Insight: Poor judgement, Poor insight Thought Process: Loose, Tangential Language: Cape Verdean Thought content/Abnormal/Psych: Delusions Fund of Knowledge: Other Associations: KRYSTA Memory (recent and remote): Recent memory repaired, Remote memory repaired Constitutional: None Neurological: None Psychiatric: Depressed, Anxious, Psychosis, Crying [place] I: DELUSIONAL DISORDER; PSYCHOSIS, DEPRESSION, ANXIETY, DEMENTIA [place] II: DEFERRED [place] III: REFER TO PMH/MEDICAL CHART [place] IV: STRESS OF MENTAL ILLNESS [place] V: GAF=25 Assessment/Plan Assessment/Plan Assessment/Plan Vital Signs Date Time Temp Pulse Resp B/P (MAP) Pulse Ox O2 Delivery O2 Flow Rate FiO2 10/13/17 09:34 104/66 10/13/17 08:35 98.1 59 20 97 Room Air Allergies Coded Allergies No Known Allergies (Unverified09/28/17) I & O 09/28/17 20:10 Thru 10/13/17 10:00 Intake Total 94246 ml Output Total 342 ml Balance 73256 ml Current Medications Medications (Trade) Dose Ordered Sig/Lluvia Route Start Time Stop Time Status Last Admin Dose Admin Risperidone (Risperdal) 0.5 mg BID PO 10/12/17 21:00 11/11/17 20:59 10/13/17 09:33 Current Medications Medications (Trade) Dose Ordered Sig/Lluvia Route PRN Reason Start Time Stop Time Status Last Admin Dose Admin Donepezil HCl (Aricept) 5 mg DAILY PO 09/29/17 09:00 09/29/17 09:00 DC Miscellaneous Medication (Namenda) 10 mg BID PO 09/29/17 09:00 10/29/17 08:59 10/13/17 09:33 Citalopram Hydrobromide (Celexa) 10 mg DAILY PO 09/29/17 09:00 09/30/17 09:33 DC 09/30/17 07:49 Lorazepam (Ativan) 0.5 mg Q6HR PRN PO AGITATION 09/28/17 22:30 10/28/17 22:29 10/09/17 10:34 Lorazepam (Ativan) 0.5 mg Q6HR PRN IM AGITATION 09/28/17 22:30 10/28/17 22:29 Donepezil HCl (Aricept) 5 mg HS PO 09/29/17 21:00 10/29/17 08:59 10/12/17 20:46 Miscellaneous Medication (Namenda) 10 mg OT ONCE PO 09/28/17 23:00 09/28/17 23:23 DC 09/28/17 23:00 Donepezil HCl (Aricept) 5 mg OT ONCE PO 09/28/17 23:00 09/28/17 23:23 DC 09/28/17 23:00 Miscellaneous Medication (Namenda) 10 mg OT ONCE PO 09/28/17 23:00 09/28/17 23:23 DC Lisinopril (Zestril) 10 mg DAILY PO 09/30/17 09:00 10/30/17 08:59 10/13/17 09:34 Trimethoprim/ Sulfamethoxazole (Bactrim Ds) 1 each BID PO 09/29/17 11:30 10/07/17 08:58 DC 10/07/17 08:47 Lisinopril (Zestril) 10 mg STK-MED ONCE .ROUTE 09/30/17 07:47 09/30/17 07:50 DC Citalopram Hydrobromide (Celexa) 20 mg DAILY PO 10/01/17 09:00 10/03/17 11:11 DC 10/03/17 08:16 Lorazepam (Ativan) 0.5 mg BID PO 09/30/17 10:00 10/03/17 11:11 DC 10/03/17 08:16 Citalopram Hydrobromide (Celexa) 10 mg OT PO 09/30/17 10:30 09/30/17 10:54 DC 09/30/17 10:22 Citalopram Hydrobromide (Celexa) 30 mg DAILY PO 10/04/17 09:00 10/05/17 09:23 DC 10/05/17 09:07 Lorazepam (Ativan) 0.5 mg TID PO 10/03/17 15:00 11/02/17 14:59 10/13/17 09:34 Citalopram Hydrobromide (Celexa) 40 mg DAILY PO 10/06/17 09:00 11/05/17 08:59 10/13/17 09:32 Risperidone (Risperdal) 0.25 mg BID PO 10/09/17 21:00 10/12/17 09:02 DC 10/11/17 20:45 Lorazepam (Ativan) 0.5 mg STK-MED ONCE .ROUTE 10/11/17 08:20 10/11/17 08:22 DC Risperidone (Risperdal) 0.5 mg BID PO 10/12/17 21:00 11/11/17 20:59 10/13/17 09:33 Current Medications Medications (Trade) Dose Ordered Sig/Lluvia Route PRN Reason Start Time Stop Time Status Last Admin Dose Admin Donepezil HCl (Aricept) 5 mg DAILY PO 09/29/17 09:00 09/29/17 09:00 DC Miscellaneous Medication (Namenda) 10 mg BID PO 09/29/17 09:00 10/29/17 08:59 10/13/17 09:33 Citalopram Hydrobromide (Celexa) 10 mg DAILY PO 09/29/17 09:00 09/30/17 09:33 DC 09/30/17 07:49 Lorazepam (Ativan) 0.5 mg Q6HR PRN PO AGITATION 09/28/17 22:30 10/28/17 22:29 10/09/17 10:34 Lorazepam (Ativan) 0.5 mg Q6HR PRN IM AGITATION 09/28/17 22:30 10/28/17 22:29 Donepezil HCl (Aricept) 5 mg HS PO 09/29/17 21:00 10/29/17 08:59 10/12/17 20:46 Miscellaneous Medication (Namenda) 10 mg OT ONCE PO 09/28/17 23:00 09/28/17 23:23 DC 09/28/17 23:00 Donepezil HCl (Aricept) 5 mg OT ONCE PO 09/28/17 23:00 09/28/17 23:23 DC 09/28/17 23:00 Miscellaneous Medication (Namenda) 10 mg OT ONCE PO 09/28/17 23:00 09/28/17 23:23 DC Lisinopril (Zestril) 10 mg DAILY PO 09/30/17 09:00 10/30/17 08:59 10/13/17 09:34 Trimethoprim/ Sulfamethoxazole (Bactrim Ds) 1 each BID PO 09/29/17 11:30 10/07/17 08:58 DC 10/07/17 08:47 Lisinopril (Zestril) 10 mg STK-MED ONCE .ROUTE 09/30/17 07:47 09/30/17 07:50 DC Citalopram Hydrobromide (Celexa) 20 mg DAILY PO 10/01/17 09:00 10/03/17 11:11 DC 10/03/17 08:16 Lorazepam (Ativan) 0.5 mg BID PO 09/30/17 10:00 10/03/17 11:11 DC 10/03/17 08:16 Citalopram Hydrobromide (Celexa) 10 mg OT PO 09/30/17 10:30 09/30/17 10:54 DC 09/30/17 10:22 Citalopram Hydrobromide (Celexa) 30 mg DAILY PO 10/04/17 09:00 10/05/17 09:23 DC 10/05/17 09:07 Lorazepam (Ativan) 0.5 mg TID PO 10/03/17 15:00 11/02/17 14:59 10/13/17 09:34 Citalopram Hydrobromide (Celexa) 40 mg DAILY PO 10/06/17 09:00 11/05/17 08:59 10/13/17 09:32 Risperidone (Risperdal) 0.25 mg BID PO 10/09/17 21:00 10/12/17 09:02 DC 10/11/17 20:45 Lorazepam (Ativan) 0.5 mg STK-MED ONCE .ROUTE 10/11/17 08:20 10/11/17 08:22 DC Risperidone (Risperdal) 0.5 mg BID PO 10/12/17 21:00 11/11/17 20:59 10/13/17 09:33 THE PATIENT WAS SEEN BY DR. RIVAS VIA TELEMEDICINE EQUIPMENT (VSEE) ALONG WITH THE TREATMENT TEAM. THE PATIENT IS SLEEPING WELL AT NIGHT. THE PATIENT CONTINUES TO BE VERY CONFUSED. SHE IS DISORIENTED TO PLACE, TIME, AND SITUATION. THE PATIENT CONTINUES TO HAVE CRYING SPELLS. THE PATIENT HAS A LABILE AFFECT. SHE PERSEVERATES ON BEING WITH HER AND LEAVING THIS FACILITY. SHE DOES NOT TRY TO OPEN DOORS. SHE DOES NOT ANSWER QUESTIONS VERY WELL. SHE NEEDS HELPS WITH HER ADLS. THE PATIENT REPORTS "I'M DOING FINE." THE PATIENT IS REPORTEDLY TAKING HER MEDICATIONS. SHE IS NOT OVERSEDATED FROM HER MEDICATIONS. THE PATIENT HAS A DISORGANIZED THOUGHT PROCESS. SHE CRIED DURING THE INTERVIEW TODAY. ASSESSMENT: DELUSIONAL DISORDER; PSYCHOSIS; DEPRESSION; GENERALIZED ANXIETY DISORDER; DEMENTIA WITH BEHAVIOR PROBLEMS PLAN: 1) CONTINUE BEHAVIORAL HEALTH MANAGEMENT AT [facility]. 2) CONTINUE CURRENT MEDICATIONS. STAFF AGREEABLE WITH THE PLAN. SUPPORTIVE THERAPY GIVEN. THE PATIENT DENIES SI OR HI. SAFETY PLANS WERE DISCUSSED. Problems: (1) Dementia Status: Acute ICD Code: F03.90 - Unspecified dementia without behavioral disturbance SNOMED: 88588305 (2) Agitated depression Status: Acute ICD Code: F32.2 - Major depressive disorder, single episode, severe without psychotic features SNOMED: [id number] Patient History: Patient reports no known family medical history. JORDEN RIVAS IV, MD Oct 13, 2017 11:03
--- NOTE | 2017-10-13 13:24 | NUR ---
LEGACY: ELIZABETH CALLED AND SPOKE TO ELIZABETH WHOM STATED "UNFORTUNATELY WE ARE GOING TO BE UNABLE TO TAKE PT AT THIS TIME. THE ONE FEMALE BED WE HAVE AVAILABLE WE DO NOT FEEL LIKE WOULD BE A GOOD FIT. THAT PT ALSO HAS SUICIDAL AND HOMICIDAL IDEATIONS AND I DO NOT THINK THE TWO OF THEM TOGETHER WOULD BE A GOOD IDEAL, BUT I DID PUT HER ON A WAIT LIST SO WHEN A BED DOES COME AVAILABLE I WILL CALL THE FAMILY AND LET THEM KNOW AND MAYBE BY THAT TIME SHE WILL ALSO HAVE HER MEDICAID IN PLACE". SS CALLED PT'S DAUGHTER AND LET HER KNOW OF ABOVE DOCUMENTATION. PT'S DAUGHTER STATED THAT THEY WOULD LIKE TO TRY THE CLOSEST FACILITY THAT HAS A LOCKED UNIT AND WOULD BE WILLING TO TAKE HER MEDICAID PENDING. SS LET PT KNOW THE CLOSES FACILITY TO [place] WOULD BE [facility] IN [place]. PT'S DAUGHTER STATED "I APPRECIATE YOU TRYING AND HOPEFULLY WE CAN GET HER PLACED SOMEWHERE". SS CALLED AND SPOKE TO KIRK METZGER WITH [facility] WHOM STATED SHE WOULD REVIEW PT'S CLINICAL AND THEN WOULD SEND SOMEONE TO EVALUATE HER FOR THEIR LOCKED UNIT. PT IS CURRENTLY PENDING ACCEPTANCE INTO [facility].
--- NOTE | 2017-10-13 18:44 | NUR ---
PIRP P: Altered thought process, alteration in mood, confusion I: Assess for delusional thoughts, assess reasons for anxiety and depression, redirect with verbalization, q15 min monitoring, assist with differentiating between internal and external reality, give clear and simple instructions, provide safe and supportive environment, provide 1:1 to encourage expression of feelings R: Pt has had flat affect throughout shift, irritable @ times. Unable to rate depression and anxiety, continues to have tearful episodes. Exhibits thought blocking and word salad @ times. Withdraws to room, wanders, able to be redirected with verbalization. Takes medications as ordered, will participate in some group activities with prompting. P: Plans for pt to discharge to [facility] tuesday or tuesday next week.
[2017-10-13 19:30] VITALS: BP 97/64
[2017-10-13] MEDS: ARICEPT PO SCH (20:37)
--- NOTE | 2017-10-14 04:42 | NUR ---
PIRP P DTS, DTO, Altered thought process, alteration in mood I Encourage medication compliance. Monitor patient every 15 minutes for safety. Observe patient for threatening or assaultive behavior. Encourage patient to sleep 8 hours. Observe patient and reassure her if seen crying. R Patient has been medication compliant. Patient monitored every 15 minutes for safety and has done well. Patient has not displayed any threatening behavior this evening. Patient has been cooperative. Patient has slept well this evening. Patient has only been seen crying once this evening. P Continue plan of care.
--- NOTE | 2017-10-14 08:23 | NUR ---
[facility]: KIRK METZGER WITH [facility] STATED THAT THEY WOULD SEND A WORKER OUT TUESDAY TO ASSESS THE PT FOR POSSIBLE ADMISSION INTO THEIR FACILITY.
[2017-10-14] MEDS: NAMENDA PO SCH ×2 (08:43→20:26)
[2017-10-14] MEDS: ATIVAN PO SCH ×3 (08:44→20:26)
[2017-10-14] MEDS: RISPERDAL PO SCH ×2 (08:44→20:26)
[2017-10-14] MEDS: CELEXA PO SCH (08:44)
[2017-10-14] MEDS: ZESTRIL PO SCH (08:45)
[2017-10-14 09:33] VITALS: BP 119/78
--- NOTE | 2017-10-14 18:18 | NUR ---
PIRP P: Altered thought process, alteration in mood I: Monitor for changes in usual behavior, q15 min monitoring, assess for delusional thoughts, assist with differentiating between internal and external reality, give clear and simple instructions, re-orient to surroundings, reinforce unit rules, redirect with verbalization, assess reasons for depression and anxiety, teach coping skills r/t confusion and depression, reinforce unit rules, give medications as ordered, educate regarding involuntary admission R: Pt has had flat affect throughout shift, tearful @ times. Unable to rate depression and anxiety, but does verbalize she is upset and worried. Denies suicidal ideation, no hallucinations noted. Exhibits delusional thoughts throughout shift, able to be redirected with verbalization. States, "I want to go to my sister's and mom's. I want to go home." Isolates to room, will come out to day room with encouragement. P: Plans for pt to be evaluated by [facility] on Tuesday, October 17 for possible placement.
[2017-10-14 19:30] VITALS: BP 110/64
[2017-10-14] MEDS: ARICEPT PO SCH (20:26)
--- NOTE | 2017-10-15 02:01 | NUR ---
PIRP- P- ALTERED THOUGHT PROCESS I- PROVIDE MEDICATION ORDERED,PROVIDE SAFE AND SUPPORTIVE ENVIRONMENT,Q 15 MIN. MONITORING AND PROVIDE 1:1 INTERVENTION ALLOWING PT. TO EXPRESS THOUGHTS AND FEELINGS. R-PT. ORIENTED TO NAME NOT MONTH OR YEAR. RATED DEPRESSION 10 AND ANXIETY 0. PT. WAS TEARFUL AT TIMES STATING SHE WANTED TO GO HOME TO HER . DID NOT PARTICIPATE IN GROUP ACTIVITIES. MEDICATION TEACHING PROVIDED. TOOK MEDICATION ORDERED. P- WILL CONTINUE WITH CURRENT TX. PLAN.
[2017-10-15 08:19] VITALS: BP 114/59
[2017-10-15] MEDS: NAMENDA PO SCH ×2 (08:21→20:40)
[2017-10-15] MEDS: ATIVAN PO SCH ×3 (08:21→20:40)
[2017-10-15] MEDS: CELEXA PO SCH (08:21)
[2017-10-15] MEDS: ZESTRIL PO SCH (08:21)
[2017-10-15] MEDS: RISPERDAL PO SCH ×2 (08:21→20:40)
[2017-10-15] MEDS ORDERED: TYLENOL PO PRN (13:00)
--- NOTE | 2017-10-15 16:01 | NUR ---
PIRP: P: ALTERED MOOD, ALTERED THOUGHT PROCESS I: Provide medications as ordered by physician. Encourage attendance and participation of all groups. Provide groups that require focus and concentration. Allow patient to voice feelings and concerns. Assist patient in differentiating between internal and external reality. R: patient has taken all medications as ordered. She has not effectively participated in groups. She is unable to follow instructions and requires prompting with simple ADL's. She is tearful several times a day. P: COntinue current plan of care.
[2017-10-15 19:15] VITALS: BP 90/50
[2017-10-15] MEDS: ARICEPT PO SCH (20:40)
--- NOTE | 2017-10-16 05:02 | NUR ---
PIRP P- ALTERED THOUGHT PROCESS AND ALTERED MOOD I-PROVIDE MEDICATION ORDERED,PROVIDE SAFE AND SUPPORTIVE ENVIRONMENT AND Q 15 MIN. MONITORING. R-PT. WAS ORIENTED TO NAME NOT MONTH OR YEAR. REQUIRES DIRECTING TO HER ROOM. PT. IS TEARFUL AT TIMES. PT. STATES SHE WANTS TO GO HOME TO HER . TOOK MEDICATION ORDERED. P- CONTINUE WITH CURRENT TX. PLAN.
[2017-10-16 09:42] VITALS: BP 106/78
[2017-10-16] MEDS: NAMENDA PO SCH ×2 (09:44→20:53)
[2017-10-16] MEDS: ATIVAN PO SCH ×2 (09:45→20:52)
[2017-10-16] MEDS: ZESTRIL PO SCH (09:45)
[2017-10-16] MEDS: CELEXA PO SCH (09:45)
[2017-10-16] MEDS: RISPERDAL PO SCH ×2 (09:45→20:52)
--- NOTE | 2017-10-16 10:39 | PRM.PN ---
Mood: UP AND DOWN, LABILE MOOD Sleep: SLEEPING OK AT NIGHT Appetite: NORMAL APPETITE, NEEDS HELP WITH HER EATING Suidical thoughts: NONE REPORTED Homicidal thoughts: NONE REPORTED Recent stressors: STRESS OF MENTAL ILLNESS, STRESS OF MEMORY LOSS Family support: Aggressive Behavior: NONE REPORTED Ability to Perform ADL'sc: NEEDS ASSISTANCE, FUNCTONING HAS DECLINDED Psychotic sympstoms: DELUSIONAL THINKING, SOME ODD THINKING, NO HALLUCINATIONS Manic Symptoms: NONE REPORTED Living situation: WAS LIVING WITH HER , [facility] Illicit Drug usec: NONE REPORTED Alcoholo use: NONE REPORTED Tobacco use: NONE REPORTED Anxity Symptoms: MODERATE ANXIETY LEVEL Anger/Irritablility: SOME ANGER AND IRRITABILITY THAT HAS IMPROVED Muscle Strength & Tone: WNL Gait & Station: Ataxic Appearance: Well groomed/hygience, Casual attire, Normal weight, Appears age stated Attitude & Behaviour: Uncooperative, Poor eye contact Mood & Affect: Euthymic/appr/congruent, Iabile, Depressed Orientation: Disoriented to place, Disoriented to time, Disoriented to situation Attention/Concentration: Poor attention, Poor concentration Speech: Impaired Judgement/Insight: Poor judgement, Poor insight Thought Process: Loose, Tangential Language: Liberian Thought content/Abnormal/Psych: Delusions Fund of Knowledge: Other Associations: KRYSTA Memory (recent and remote): Recent memory repaired, Remote memory repaired Constitutional: None Neurological: None Psychiatric: Depressed, Anxious, Psychosis, Crying [place] I: DELUSIONAL DISORDER; GENERALIZED ANXIETY DISORDER; DEPRESSION; DEMENTIA [place] II: DEFERRED [place] III: REFER TO PMH/MEDICAL CHART [place] IV: STRESS OF MENTAL ILLNESS [place] V: GAF=25 Assessment/Plan Assessment/Plan Assessment/Plan Vital Signs Date Time Temp Pulse Resp B/P (MAP) Pulse Ox O2 Delivery O2 Flow Rate FiO2 10/16/17 09:45 106/78 10/16/17 09:42 98.3 83 18 96 Room Air Allergies Coded Allergies No Known Allergies (Unverified09/28/17) I & O 09/28/17 20:10 Thru 10/16/17 06:37 Intake Total 73331 ml Output Total 342 ml Balance 12649 ml Current Medications Medications (Trade) Dose Ordered Sig/Lluvia Route Start Time Stop Time Status Last Admin Dose Admin Acetaminophen (Tylenol) 500 mg Q6H PRN PO 6/23/18 13:00 11/14/17 12:59 10/15/17 12:46 500 MG THE PATIENT WAS SEEN BY DR. RIVAS VIA TELEMEDICINE EQUIPMENT (VSEE) ALONG WITH THE TREATMENT TEAM. THE PATIENT HAS A LABILE MOOD. THE PATIENT HAS CRYING SPELLS. HER CRYING SPELLS HAVE DECREASED. THE PATIENT HAS DECLINED IN HER COGNITIVE FUNCTIONING. THE PATIENT NEEDS PROMPTING ON HER ADLS. THIS HAS WORSENED SINCE BEING ADMITTED TO THIS FACILITY. THE PATIENT SLEPT 8.5 HOURS LAST NIGHT. THE PATIENT NEEDS HELP WITH HER EATING. THE PATIENT NEEDS HELP WITH HER UTENSILS. THE PATIENT NEEDS HELP GOING TO THE BATHROOM. ASSESSMENT: DELUSIONAL DISORDER; PSYCHOSIS; MAJOR DEPRESSIVE DISORDER; GENERALIZED ANXIETY DISORDER; DEMENTIA WITH BEHAVIOR PROBLEMS. PLAN: 1) CONTINUE BEHAVIORAL HEALTH MANAGEMENT AT [facility]. 2) CONTINUE CURRENT MEDICATIONS. STAFF AGREEABLE WITH THE PLAN. SUPPORTIVE THERAPY GIVEN. THE PATIENT DENIES SI OR HI. SAFETY PLANS WERE DISCUSSED. Problems: (1) Dementia Status: Acute ICD Code: F03.90 - Unspecified dementia without behavioral disturbance SNOMED: 43439540 (2) Agitated depression Status: Acute ICD Code: F32.2 - Major depressive disorder, single episode, severe without psychotic features SNOMED: [id number] Patient History: Patient reports no known family medical history. JORDEN RIVAS IV, MD Oct 16, 2017 10:39
--- NOTE | 2017-10-16 17:08 | NUR ---
PIRP: P: ALTERED MOOD I: Provide medications as ordered by physician. Encourage attendance and participation of all groups, Provide groups that require focus and concentration. Allow patient to voice feelings and concerns. R: Patient has taken all medications as ordered by physician. She has slept most of the day but has been less tearful. She has been confused and disoriented and is unable to perform ADL's and requires prompting in everything. P: Continue current plan of care. Dr. Fowler saw patient today and d/t sleepiness decreased Ativan to 0.5 mg po BID. Plans for discharge this week to half-way.
[2017-10-16 19:53] VITALS: BP 112/67
[2017-10-16] MEDS: ARICEPT PO SCH (20:52)
--- NOTE | 2017-10-17 04:50 | NUR ---
PIRP: P - ALTERATION IN MOOD I - Q15 MINUTE MONITORING, PROVIDE SAFE AND SUPPORTIVE ENVIRONMENT, ALLOW PT TO EXPRESS FEELINGS AND THOUGHTS, PROVIDE COMFORT AND REASSURANCE, ADMINISTER MEDICATION ORDERED, REORIENT NEEDED, ASSESS REASON FOR ANXIETY AND DEPRESSION, ENCOURAGE PARTICIPATION IN GROUP ACTIVITIES, PROMPT PT NEEDED. R - PT IS ALERT AND ORIENTED X 1. PT IS TEARY EYED AND THEN BEGAN TO CRY DUE TO ANXIETY ABOUT SPOUSE AND CHILDREN. PER PT REPORT "I NEED TO CHECK ON THEM, THEY NEED ME". PT TOOK ALL MEDICATIONS ORDERED. PT DENIES ANY SUICIDAL IDEATIONS OR HOMICIDAL THOUGHTS PT RATED DEPRESSION 5/10. PT CONTINUES TO ASK ABOUT SPOUSE AND WHEN HE IS GOING TO VISIT HER. ONCE PT INFORMED THAT HER SPOUSE VISITED EARLIER ON IN THE DAY DURING VISITATION TIME, PT ASKED FOR HER SHOES "SO I CAN GO HOME", PER PT REPORT. PT IS BEING REASSURED AND COMFORTED BY ANOTHER RESIDENT AND REQUESTS I SIT WITH HER THE WHOLE TIME AND NOT LEAVE HER. PT ABLE TO BE COMFORTED AND RE-DIRECTED. PT DID NOT ATTEND GROUP DUE TO TOILETING. PT ATE SOME ICE CREAM, HAD SOME BOOST AND SODA FOR EVENING SNACK. P - WILL CONTINUE WITH CURRENT TREATMENT PLAN.
[2017-10-17] MEDS: NAMENDA PO SCH ×2 (08:29→20:44)
[2017-10-17] MEDS: CELEXA PO SCH (08:29)
[2017-10-17] MEDS: RISPERDAL PO SCH ×2 (08:29→20:45)
[2017-10-17] MEDS: ZESTRIL PO SCH (08:30)
[2017-10-17] MEDS: ATIVAN PO SCH ×2 (08:30→20:44)
[2017-10-17 08:33] VITALS: BP 117/68
--- NOTE | 2017-10-17 11:12 | NUR ---
[facility]: SS CALLED AND SPOKE TO MICHAEL METZGER WITH [facility] REGARDING PT. MICHAEL STATED THEY WOULD SEND SOMEONE OUT TODAY TO EVALUATE PT AND SEE IF SHE WOULD BE A CANDIDATE FOR THEIR LOCKED FACILITY. SS LET MICHAEL KNOW GOAL WAS TO DISCHARGE IN THE NEXT DAY OR TWO TO FACILITY. PT STILL PENDING ACCEPTANCE INTO [facility].
[2017-10-17] MEDS ORDERED: RISP0.2518 PO (14:40)
[2017-10-17] MEDS ORDERED: CITA40TA12 PO (14:40)
[2017-10-17] MEDS ORDERED: LORA-447 PO (14:42)
--- NOTE | 2017-10-17 17:16 | NUR ---
PIRP: P: ALTERED MOOD, DEMENTIA I: Provide medications as ordered by physician. Encourage attendance and participation of all groups. Allow patient to voice feelings and concerns. Assist patient in differentiating between internal and external reality. R: Patient has taken all her medications today but requires them to be crushed. She has mentally declined and can not follow simple commands and requires prompting. She has been tearful today and has had excessive worry. She has not been resistant to care. P: Continue with plan of care.
[2017-10-17 19:30] VITALS: BP 144/51
[2017-10-17] MEDS: ARICEPT PO SCH (20:45)
--- NOTE | 2017-10-18 05:41 | NUR ---
PIRP P- ALTERATION IN MOOD I- PROVIDE MEDICATION ORDERED,Q 15 MIN. MONITORING, PROVIDE SAFE AND SUPPORTIVE ENVIRONMENT. R- PT. WAS TEARFUL THIS SHIFT. TOOK MEDICATION ORDERED. ATTENDED GROUP AND DID NOT INITIATE INTERACTION BUT RESPONDED TO APPROACH WITH WORD [place]. PT. REQUIRED ASSISTANCE WITH ADLS HAS RESTED IN BED WITH EYES CLOSED FOR 6.50 HOURS OF THIS TIME THIS SHIFT. P- WILL CONTINUE WITH CURRENT [place]. PLAN.
[2017-10-18 08:19] VITALS: BP 117/69
[2017-10-18] MEDS: NAMENDA PO SCH ×2 (08:53→20:41)
[2017-10-18] MEDS: ATIVAN PO SCH ×2 (08:53→20:41)
[2017-10-18] MEDS: RISPERDAL PO SCH ×2 (08:53→20:41)
[2017-10-18] MEDS: CELEXA PO SCH (08:53)
[2017-10-18] MEDS: ZESTRIL PO SCH (08:54)
--- NOTE | 2017-10-18 15:23 | NUR ---
PIRP P-ALTERED THOUGH PROCESS I- Q 15 MIN MONITORING, GIVE MEDICATION ORDERED. PROVIDE SUPPORTIVE ENVIRONMENT. HELP PATIENT TO FOCUS ON AREAS IN HER LIFE THAT SHE CAN CONTROL BY ENCOURAGING GROUP PARTICIPATION. R-PATIENT PARTICIPATED IN GROUP, HAD DIFFICULTY WITH GRASPING CERTAIN CONCEPTS OF HAND EYE COORDINATION AND SIMPLE INSTRUCTIONS. PATIENT BECAME TEARFUL SEVERAL TIMES, ASKING ABOUT HER . PATIENT WAS VERY COOPERATIVE WITH RE-DIRECTION AND SOCIALIZING. P-CONTINUE WITH PLAN OF CARE.
[2017-10-18 19:54] VITALS: BP 107/63
[2017-10-18] MEDS: ARICEPT PO SCH (20:41)
--- NOTE | 2017-10-19 05:47 | NUR ---
PIRP P Altered thought process, DTS, Alteration in mood I Maintain medication compliance. Discourage self harming behaviors if occurs. Monitor every 15 minutes for safety. Encourage 8 hours of sleep. Provide one on one time to allow patient to verbalize thoughts feelings R Patient has remained medication compliant and has not displayed any self harming behaviors. Patient monitored every 15 minutes for safety. Patient has slept 7.5 hours so far. Patient speaks of her and how he isnt here . Patient will not speak of anything else. P Continue plan of care.
[2017-10-19 08:06] VITALS: BP 108/61
--- NOTE | 2017-10-19 08:11 | PRM.PN ---
Mood: STABLE, LESS LABILE AFFECT, NOT ABLE TO DESCRIBER HER MOOD Sleep: SLEPT 8 HOURS LAST NIGHT Appetite: POOR APPETITE, SHE GETS BOOST SHAKES Suidical thoughts: NONE REPORTED Homicidal thoughts: NONE REPORTED Recent stressors: STRESS OF MENTAL ILLNESS, POOR MEMORY Family support: Aggressive Behavior: NONE REPORTED Ability to Perform ADL'sc: NEEDS ASSISTANCE Psychotic sympstoms: DELUSIONAL THINKING THAT HAS IMPROVED Manic Symptoms: NONE REPORTED Living situation: GOING TO [facility] IN [place], WAS LIVING AT HOME Illicit Drug usec: NONE REPORTED Alcoholo use: NONE REPORTED Tobacco use: NONE REPORTED Anxity Symptoms: MODERATE ANXIETY LEVEL Anger/Irritablility: LIMITED ANGER AND IRRITABILITY Muscle Strength & Tone: WNL Gait & Station: Ataxic Appearance: Well groomed/hygience, Casual attire, Normal weight, Appears age stated Attitude & Behaviour: Uncooperative, Poor eye contact Mood & Affect: Euthymic/appr/congruent, Iabile, Depressed Orientation: Disoriented to place, Disoriented to time, Disoriented to situation Attention/Concentration: Poor attention, Poor concentration Speech: Impaired Judgement/Insight: Poor judgement, Poor insight Thought Process: Loose, Tangential, Circumferential Language: Bermudian Thought content/Abnormal/Psych: Delusions Fund of Knowledge: Other Associations: KRYSTA Memory (recent and remote): Recent memory repaired, Remote memory repaired Constitutional: None Neurological: None Psychiatric: Depressed, Anxious, Psychosis, Crying [place] I: MAJOR DEPRESSIVE DISORDER, ANXIETY, DELEUSIONAL DISORDER, DEMENTIA WITH BEH [place] II: DEFERRED [place] III: REFER TO PMH/MEDICAL CHART [place] IV: STRESS OF MENTAL ILLNESS [place] V: GAF=25 Assessment/Plan Assessment/Plan Assessment/Plan Vital Signs Date Time Temp Pulse Resp B/P (MAP) Pulse Ox O2 Delivery O2 Flow Rate FiO2 10/19/17 08:06 98.7 88 22 108/61 (40) 97 Room Air Allergies Coded Allergies No Known Allergies (Unverified09/28/17) I & O 09/28/17 20:10 Thru 10/18/17 18:45 Intake Total 54362 ml Output Total 342 ml Balance 49002 ml THE PATIENT WAS SEEN BY DR. RIVAS FACE TO FACE FOR A PSYCHIATRIC EVALUATION ALONG WITH THE TREATMENT TEAM. THE PATIENT HAS BEEN TAKING HER MEDICATIONS. SHE STRUGGLES WITH CONFUSION. SHE HAS BEEN HAVING FEWER CRYING SPELLS. SHE HAS A LABILE AFFECT. THE PATIENT WAS ABLE TO STATE HER FULL NAME. THE PATIENT WAS DISORIENTED TO PLACE, TIME, AND SITUATION. DR. RIVAS SPOKE WITH THE PATIENT'S ABOUT THE TREATMENT PLAN. THE PATIENT HAS STRUGGLED WITH DEPRESSION. THE PATIENT HAS SHOWN IMPROVEMENT IN HER MOOD PER STAFF. THE PATIENT IS NOT HAVING HALLUCINATIONS. THE PATIENT HAS A DISORGANIZED THOUGHT PROCESS. THE PATIENT RESPONDS SLOWLY TO QUESTIONS. THE PATIENT HAS A NORMAL ENERGY LEVEL. THE PATIENT HAS DELUSIONAL THINKING RELATED TO HER DEMENTIA. THE PATIENT HAS NOT BEEN HAVING PROBLEMS WITH ANGER OR IRRITABILITY. THE PATIENT NEEDS HELP WITH HER ADLS. SHE REQUIRES PROMPTING AND REDIRECTION. ASSESSMENT: MAJOR DEPRESSIVE DISORDER; GENERALIZED ANXIETY DISORDER; DELUSIONAL DISORDER; PSYCHOSIS; DEMENTIA WITH BEHAVIOR PROBLEMS PLAN: 1) CONTINUE BEHAVIORAL HEALTH MANAGEMENT AT [facility]. 2) CONTINUE CURRENT MEDICATIONS. STAFF AGREEABLE WITH THE PLAN. THE PATIENT DENIES SI OR HI. 16 MINUTES SPENT IN SUPPORTIVE THERAPY, INSIGHT ORIENTED THERAPY, AND FAMILY COUNSELING. PLAN TO DISCHARGE TO THE [facility] IN [place], [place]. Problems: (1) Dementia Status: Acute ICD Code: F03.90 - Unspecified dementia without behavioral disturbance SNOMED: [id number] Patient History: Patient reports no known family medical history. JORDEN RIVAS IV, MD Oct 19, 2017 08:11
--- NOTE | 2017-10-19 08:30 | NUR ---
Tx team Pt was seen by Dr. Fowler and tx team. Plans for pt to discharge to [facility] if accepted.
[2017-10-19] MEDS: ZESTRIL PO SCH (08:50)
[2017-10-19] MEDS: RISPERDAL PO SCH ×2 (08:50→21:02)
[2017-10-19] MEDS: CELEXA PO SCH (08:50)
[2017-10-19] MEDS: ATIVAN PO SCH ×2 (08:50→21:02)
[2017-10-19] MEDS: NAMENDA PO SCH ×2 (08:50→21:02)
--- NOTE | 2017-10-19 18:49 | NUR ---
PIRP P: Altered thought process, alteration in mood I: q15 min monitoring, provide 1:1 to encourage expression of feelings, redirect with verbalization, give clear and simple instructions, assist with differentiating between internal and external reality, reinforce unit rules, provide task-oriented activities, teach relaxation techniques, provide education regarding discharge planning R: Pt has pleasant affect when approached, isolates to room. Comes out to day room for meals and for group activities with prompting. Forgetful, requires redirection regarding surroundings. Tearful @ times, able to be redirected with verbalization. Denies depression and anxiety, has not exhibited threatening or combative behaviors. Wanders up and down javed but is not exit-seeking. Exhibits word salad @ times. P: Plans for pt to discharge to [facility] if accepted, if not to [facility] in [place], [place].
[2017-10-19] MEDS: ARICEPT PO SCH (21:00)
[2017-10-19 22:28] VITALS: BP 107/64
--- NOTE | 2017-10-20 05:57 | NUR ---
PIRP P DTS, DTO, Altered thought process, Alteration in mood I Maintain medication compliance. Observe for Self harming behaviors. Monitor every 15 minutes for safety. Encourage 8 hours fo sleep nightly. R Patient has remained medication compliant and has not displayed any self harming behaviors. Patient has been monitored every 15 minutes for safety and has slept 8 hours tonight. Patient has only been observed crying once this evening. P Continue plan of care
[2017-10-20 07:44] VITALS: BP 120/66
--- NOTE | 2017-10-20 10:20 | NUR ---
[facility] Attempted to contact Pre[facility] @ [facility] for update regarding acceptance to facility, no answer, left VM.
[2017-10-20] MEDS: RISPERDAL PO SCH ×2 (11:00→20:23)
[2017-10-20] MEDS: NAMENDA PO SCH ×2 (11:00→20:23)
[2017-10-20] MEDS: CELEXA PO SCH (11:00)
[2017-10-20] MEDS: ATIVAN PO SCH ×2 (11:00→20:23)
[2017-10-20] MEDS: ZESTRIL PO SCH (11:01)
--- NOTE | 2017-10-20 12:30 | NUR ---
IZAIAH PICKARD: GUI CONTACTED FACILITY TO RECEIVE UPDATE ON ACCEPTANCE. GUI SPOKE TO OSCAR WHO INFORMED THIS WORKER THAT [facility] IS OUT OF THE OFFICE AND HE IS UNABLE TO PROVIDE AN UPDATE AT THIS TIME. OSCAR INFORMED THIS WORKER THAT HE WILL CALL [facility] ON HER CELL PHONE TO GIVE HER THE INFORMATION AND WILL HAVE HER CALL THE UNIT CHARGE NURSE, BI WITH AN UPDATE.
--- NOTE | 2017-10-20 13:27 | PRM.PN ---
Mood: STABLE, THE PATIENT HAS FEWER CRYING SPELLS Sleep: SLEEPING OK AT NIGHT, SLEPT 8 HOURS LAST NIGHT Appetite: APPETITE HAS IMPROVED, SHE IS NOT DRINKING THE SUPPLEMENTS Suidical thoughts: NONE REPORTED Homicidal thoughts: NONE REPORTED Recent stressors: STRESS OF MENTAL ILLNESS Family support: IS SUPPORTIVE Aggressive Behavior: NONE RECENTLY, LESS CRYING SPELLS Ability to Perform ADL'sc: NEEDS ASSISTANCE, NEEDS PROMPTING Psychotic sympstoms: DELUSIONAL THINKING, NO HALLUCINATIONS Manic Symptoms: NONE REPORTED Living situation: WAS LIVING AT HOME, NEEDS [facility] Illicit Drug usec: NONE REPORTED Alcoholo use: NONE REPORTED Tobacco use: NONE REPORTED Anxity Symptoms: MODERATE ANXIETY LEVEL Anger/Irritablility: MINIMAL ANGER AND IRRITABILITY Muscle Strength & Tone: WNL Gait & Station: Ataxic Appearance: Well groomed/hygience, Casual attire, Normal weight, Appears age stated Attitude & Behaviour: Cooperative/Pleasant, Poor eye contact Mood & Affect: Euthymic/appr/congruent, Iabile, Depressed Orientation: Disoriented to place, Disoriented to time, Disoriented to situation Attention/Concentration: Poor attention, Poor concentration Speech: Impaired Judgement/Insight: Poor judgement, Poor insight Thought Process: Loose, Tangential, Circumferential Language: Northern Irish Thought content/Abnormal/Psych: Delusions Fund of Knowledge: Other Associations: KRYSTA Memory (recent and remote): Recent memory repaired, Remote memory repaired Constitutional: None Neurological: None Psychiatric: Depressed, Anxious, Psychosis, Crying [place] I: DELUSIONAL DISORDER, MAJOR DEPRESSIVE DISORDER, ANXIETY, DEMENTIA [place] II: DEFERRED [place] III: REFER TO PMH/MEDICAL CHART [place] IV: STRESS OF MENTAL ILLNESS [place] V: GAF=25 Assessment/Plan Assessment/Plan Assessment/Plan Vital Signs Date Time Temp Pulse Resp B/P (MAP) Pulse Ox O2 Delivery O2 Flow Rate FiO2 10/20/17 11:01 120/66 10/20/17 07:44 98.3 78 18 98 Room Air Allergies Coded Allergies No Known Allergies (Unverified09/28/17) I & O 09/28/17 20:10 Thru 10/20/17 12:52 Intake Total 22285 ml Output Total 343 ml Balance 29632 ml THE PATIENT WAS SEEN BY DR. RIVAS VIA TELEMEDICINE EQUIPMENT (VSEE) ALONG WITH THE TREATMENT TEAM. THE PATIENT CONTINUES TO BE CONFUSED. SHE IS NOT ABLE TO ANSWER QUESTIONS VERY WELL. ALUMNI SECRETARY IS WORKING ON PLACING THE PATIENT AT [facility] IN [place], [place]. THE PATIENT HAS BEEN TAKING HER MEDICATIONS. SHE IS NOT OVER-SEDATED FROM HER MEDICATIONS. SHE IS HAVING FEWER CRYING SPELLS. HER MOOD HAS BEEN MORE STABLE. SHE DOES NOT VOICE SI OR HI. THE PATIENT HAS BEEN EATING BETTER PER STAFF. THE PATIENT SLEPT 8 HOURS LAST NIGHT. ASSESSMENT: DELUSIONAL DISORDER; MAJOR DEPRESSIVE DISORDER, GENERALIZED ANXIETY DISORDER; DEMENTIA WITH BEHAVIOR PROBLEMS PLAN: 1) CONTINUE BEHAVIORAL HEALTH MANAGEMENT AT THE [facility]. 2) CONTINUE CURRENT MEDICATIONS. THE PATIENT IS TOLERATING HER MEDICATIONS FINE. SUPPORTIVE THERAPY GIVEN. THE PATIENT DENIES SI OR HI. SOCIAL WORKING ON PLACEMENT. HOPE TO GO TO [facility] TODAY OR TOMORROW. Problems: (1) Dementia Status: Chronic ICD Code: F03.90 - Unspecified dementia without behavioral disturbance SNOMED: [id number] (2) Agitated depression Status: Resolved ICD Code: F32.2 - Major depressive disorder, single episode, severe without psychotic features SNOMED: [id number] Patient History: Patient reports no known family medical history. JORDEN RIVAS IV, MD Oct 20, 2017 13:27
--- NOTE | 2017-10-20 13:53 | NUR ---
VSEE Pt was seen by Dr. Fowler via telemd. No new orders received, pt ready for discharge once accepted to facility.
--- NOTE | 2017-10-20 15:00 | NUR ---
[facility] Spoke to [facility] and notified need for acceptance or denial. Reports she will notify Prema as soon as she is out of her meeting.
--- NOTE | 2017-10-20 16:29 | NUR ---
[facility] contacted by this RN and informed of discharge plans discussed with . Spoke to [facility], reports she will contact to get financial info, reports that they may not be able to accept pt until Tuesday, October 24, 2017. Reports she will give call back with update.
--- NOTE | 2017-10-20 16:55 | NUR ---
Lata Nunes Received phone call from [facility], reports that they are willing to accept pt to facility on Tuesday, if [facility] not accept pt by then. Reports she spoke to , Alexei, and that he is agreeable with plan.
--- NOTE | 2017-10-20 18:21 | NUR ---
PIRP P: Altered thought process, alteration in mood I: Monitor for changes in usual behavior, q15 min monitoring, provide safe and supportive environment, give clear and simple instructions, re-orient to surroundings, reinforce unit rules, redirect with verbalization, provide task-oriented activities, assist with differentiating between internal and external reality, give medications as ordered, alternate rest/activity R: Pt has had pleasant, cooperative affect throughout shift. Tearful @ times, but is able to be redirected with verbalization. Denies depression and anxiety despite tearful episodes, reports she wants to see her . States, "Is Alexei going to come get me?" Alert and oriented to self, wanders @ times. Participates in some group activities with prompting. Interacts appropriately with staff. Has not exhibited threatening or combative behaviors. P: Plans for pt to discharge as soon as accepted into facility.
[2017-10-20 19:20] VITALS: BP 98/62
[2017-10-20] MEDS: ARICEPT PO SCH (20:22)
--- NOTE | 2017-10-21 07:18 | NUR ---
PIRP P Danger to self and others, Altered thought process I Patient will remain medication compliant. Self harming behaviors will be discouraged. Monitor patient for safety R Patient has been medication compliant. Patient has not displayed any self harming behaviors. Patient has been monitored for safety and has done well. P Continue plan of care.
[2017-10-21 09:35] VITALS: BP 103/55
[2017-10-21] MEDS: ZESTRIL PO SCH (09:37)
[2017-10-21] MEDS: NAMENDA PO SCH ×2 (09:37→21:04)
[2017-10-21] MEDS: RISPERDAL PO SCH ×2 (09:37→21:04)
[2017-10-21] MEDS: CELEXA PO SCH (09:37)
[2017-10-21] MEDS: ATIVAN PO SCH ×2 (09:37→21:04)
[2017-10-21 20:00] VITALS: BP 145/81
[2017-10-21] MEDS: ARICEPT PO SCH (21:03)
--- NOTE | 2017-10-22 05:43 | NUR ---
PIRP P- DTS,DTO AND ALTERED THOUGHT PROCESS I- PROVIDE SAFE AND SUPPORTIVE ENVIRONMENT,Q 15 MIN. MONITORING,PROVIDE MEDICATION ORDERED. R- PT. WAS ORIENTED TO NAME NOT MONTH OR YEAR. EXHIBITED PLEASANT AFFECT. DECLINED TO ATTEND GROUP AND 1:1 WAS DONE FOR GROUP. HAS NOT BEEN TEARFUL TONIGHT. TOOK MEDICATION ORDERED. HAS NOT EXHIBITED DTO OR DTS THIS SHIFT. HAS RESTED IN BED WITH EYES CLOSED FOR 7 HOURS OF THIS TIME TONIGHT. P- WILL CONTINUE WITH CURRENT [place]. PLAN.
[2017-10-22 07:30] VITALS: BP 112/67
[2017-10-22] MEDS: CELEXA PO SCH (09:02)
[2017-10-22] MEDS: NAMENDA PO SCH ×2 (09:02→20:47)
[2017-10-22] MEDS: ATIVAN PO SCH ×2 (09:02→20:47)
[2017-10-22] MEDS: RISPERDAL PO SCH ×2 (09:03→20:47)
[2017-10-22] MEDS: ZESTRIL PO SCH (09:04)
--- NOTE | 2017-10-22 17:46 | NUR ---
PIRP: P: DTS, ALTERED THOUGHT PROCESS, ALTERATION IN MOOD, ALTERATED THOUGHT PROCESS I: Provide medications as ordered by physician. Encourage attendance and participation of all groups. Provide groups that require focus and concentration. Assist patient in differentiating between internal and external reality. Allow patient to voice feelings and concerns. Monitor patient 's behavior for changes in usual behavior that may indicate risk of injury. R: Patient has taken all medications as ordered and has been confused and disoriented. She has become tearful towards the end of the shift asking for her . She requires constant supervision d/t memory loss. She has not been combative. P: Continue current plan of care . Plans for discharge Tuesday 10/24.
[2017-10-22 19:59] VITALS: BP 111/70
[2017-10-22] MEDS: ARICEPT PO SCH (20:46)
--- NOTE | 2017-10-23 05:31 | NUR ---
PIRP P-ALTERED THOUGHT PROCESS,ALTERATION IN MOOD AND DTS I-PROVIDE MEDICATION ORDERED, Q 15 MIN. MONITORING,PROVIDE SAFE AND SUPPORTIVE ENVIRONMENT. R-PT. WAS ORIENTED TO NAME NOT MONTH OR YEAR. EXHIBITED PLEASANT AFFECT. SMILES AT TIMES AND HAS NOT BEEN TEARFUL THIS SHIFT. ATTENDED GROUP,ATE SNACK AND WAS ASSISTED WITH A SHOWER.TOOK MEDICATION ORDERED. HAS RESTED IN BED WITH EYES CLOSED FOR 7.75 HOURS OF THIS TIME THIS SHIFT. P- WILL CONTINUE WITH CURRENT [place]. PLAN.
[2017-10-23 07:30] VITALS: BP 107/73
[2017-10-23] MEDS: NAMENDA PO SCH ×2 (08:49→20:03)
[2017-10-23] MEDS: ATIVAN PO SCH ×2 (08:49→20:03)
[2017-10-23] MEDS: CELEXA PO SCH (08:49)
[2017-10-23] MEDS: ZESTRIL PO SCH (08:54)
[2017-10-23] MEDS: RISPERDAL PO SCH ×2 (08:55→20:03)
--- NOTE | 2017-10-23 09:36 | PRM.PN ---
Mood: STABLE, LESS CRYING SPELLS, NO BEHAVIOR PROBLEMS, CONFUSED Sleep: SLEEPING WELL AT NIGHT Appetite: APPETITE IS IMPROVED FROM ADMISSION Suidical thoughts: NONE REPORTED Homicidal thoughts: NONE REPORTED Recent stressors: STRESS OF MENTAL ILLNESS Family support: Aggressive Behavior: NONE REPORTED Ability to Perform ADL'sc: NEEDS ASSISTANCE Psychotic sympstoms: DELUSIONAL THINKING RELATED TO DEMENTIA, NO HALLUCINATIONS Manic Symptoms: NONE REPORTED Living situation: STRESS OF MENTAL ILLNESS, MEMORY LOSS Illicit Drug usec: NONE REPORTED Alcoholo use: NONE REPORTED Tobacco use: NONE REPORTED Anxity Symptoms: MODERATE ANXIETY LEVEL Anger/Irritablility: LIMITED ANGER AND IRRITABILITY Muscle Strength & Tone: WNL Gait & Station: Ataxic Appearance: Appears older, Well groomed/hygience, Casual attire, Normal weight Attitude & Behaviour: Cooperative/Pleasant, Good eye contact Mood & Affect: Euthymic/appr/congruent, Iabile, Depressed Orientation: Disoriented to place, Disoriented to time, Disoriented to situation Attention/Concentration: Poor attention, Poor concentration Speech: Impaired Judgement/Insight: Poor judgement, Poor insight Thought Process: Loose, Tangential, Circumferential Language: Sudanese Thought content/Abnormal/Psych: Delusions Fund of Knowledge: Other Associations: KRYSTA Memory (recent and remote): Recent memory repaired, Remote memory repaired Constitutional: None Neurological: None Psychiatric: Depressed, Anxious, Crying [place] I: DELUSIONAL DISORDER, NOBLE, DEPRESSION, DEMENTIA [place] II: DEFERRED [place] III: REFER TO PMH/MEDICAL CHART [place] IV: STRESS OF MENTAL ILLNESS [place] V: GAF=25 Assessment/Plan Assessment/Plan Assessment/Plan Vital Signs Date Time Temp Pulse Resp B/P (MAP) Pulse Ox O2 Delivery O2 Flow Rate FiO2 10/23/17 08:54 107/73 10/23/17 07:30 98.6 76 18 97 Room Air Allergies Coded Allergies No Known Allergies (Unverified09/28/17) I & O 09/28/17 20:10 Thru 10/23/17 05:18 Intake Total 31263 ml Output Total 343 ml Balance 41650 ml THE PATIENT WAS SEEN BY DR. RIVAS VIA TELEMEDICINE EQUIPMENT (VSEE) ALONG WITH THE TREATMENT TEAM. THE PATIENT CONTINUES TO STRUGGLE WITH CONFUSION. SHE HAS BEEN TAKING HER MEDICATIONS. SHE HAS NOT BEEN A BEHAVIOR PROBLEM. THE PATIENT SLEPT 8.25 HOURS LAST NIGHT. THE PATIENT HAS BEEN SLEEPING WELL. SHE HAS BEEN EATING 50-75% OF HER MEALS. THE PATIENT NEEDS TO BE PROMPTED TO EAT HER MEALS. THE PATIENT HAS DELUSIONAL THINKING RELATED TO HER DEMENTIA. THE PATIENT IS NOT HAVING AUDITORY OR VISUAL HALLUCINATIONS. THE PATIENT IS ABLE TO STATE HER NAME. THE PATIENT IS DISORIENTED TO PLACE, TIME, AND SITUATION. THE PATIENT IS NOT HAVING MANIC SYMPTOMS. THE PATIENT HAS A MILD TO MODERATE ANXIETY LEVEL. ASSESSMENT: DELUSIONAL DISORDER; MAJOR DEPRESSIVE DISORDER; GENERALIZED ANXIETY DISORDER; DEMENTIA WITH BEHAVIOR PROBLEMS PLAN: 1) CONTINUE BEHAVIORAL HEALTH MANAGEMENT. PLAN TO DISCHARGE TO [facility] TOMORROW. 2) CONTINUE CURRENT MEDICATIONS. STAFF AGREEABLE WITH THE PLAN. SUPPORTIVE THERAPY GIVEN. THE PATIENT DENIES SI OR HI. THE PATIENT IS READY TO GO TO THE [facility]. Problems: (1) Dementia Status: Chronic ICD Code: F03.90 - Unspecified dementia without behavioral disturbance SNOMED: 28936960 (2) Agitated depression Status: Resolved ICD Code: F32.2 - Major depressive disorder, single episode, severe without psychotic features SNOMED: 21144184 Patient History: Patient reports no known family medical history. JORDEN RIVAS IV, MD Oct 23, 2017 09:36
--- NOTE | 2017-10-23 17:30 | NUR ---
PIRP: P: altered thought process, depression. I: Provide medications as ordered by physician. Encourage attendance and participation of all groups. Assist patient in differentiating between internal and external reality. Allow patient to voice feelings and concerns. R: Patient has taken all medications as ordered. She has been confused and has wandered down hallway. She requires constant supervision d/t cognitive. She has not been combative or tearful this shift. P: Continue current plan of care. Discharge Tuesday to [facility].
[2017-10-23 19:20] VITALS: BP 111/68
[2017-10-23] MEDS: ARICEPT PO SCH (20:03)
--- NOTE | 2017-10-24 03:28 | NUR ---
PIRP P- ALTERED THOUGHT PROCESS,DTS,ALTERED MOOD I-PROVIDE MEDICATION ORDERED.PROVIDE SAFE AND SUPPORTIVE ENVIRONMENT AND Q 15 MIN. MONITORING. R- PT. ORIENTED TO NAME,CHEERFUL AFFECT.ATTENDED GROUP,ATE SNACKS AND STATED SHE DID NOT ACCOMPLISH HER DAILY GOAL. TOOK MEDICATION ORDERED. REQUIRES DIRECTING AT TIMES BUT IS EASILY DIRECTED.HAS NOT EXHIBITED DTS OR OTHERS TONIGHT.HAS NOT BEEN TEARFUL BUT DID SAY SHE WANTED TO GO HOME TO HER . P- WILL CONTINUE WITH CURRENT [place]. PLAN.
[2017-10-24 08:13] VITALS: BP 127/81
[2017-10-24] MEDS: ZESTRIL PO SCH (08:19)
[2017-10-24] MEDS: RISPERDAL PO SCH (08:19)
[2017-10-24] MEDS: ATIVAN PO SCH (08:19)
[2017-10-24] MEDS: CELEXA PO SCH (08:20)
[2017-10-24] MEDS: NAMENDA PO SCH (08:20)
[2017-10-24 09:45] VITALS: BP 127/81
--- NOTE | 2017-10-24 09:45 | NUR ---
REPORT GIVEN: Report given to [facility] Nila Farrell LVN. Patient transported to [facility] with all belongings. Patient escorted out via wheelchair.
[2017-10-24 11:07] VITALS: BP 127/81
--- NOTE | 2017-10-25 00:20 | DSH ---
DATE OF DISCHARGE: 10/24/2017 HOSPITAL COURSE: The patient is a 67-year-old female with a history of delusional disorder, major depression, and Alzheimer type dementia with behavior disturbance. She came from home with irritable and aggressive behavior. She was combative towards her . She was stabilized on the following psychotropic medications: Celexa 40 mg p.o. daily, Aricept 5 mg p.o. at bedtime, Namenda 10 mg p.o. b.i.d., lorazepam 0.5 mg p.o. b.i.d. and Risperdal 0.5 mg p.o. b.i.d. The patient was taking all of her medications. She was having fewer crying spells. She was having a lot of crying spells on admission. She was sleeping better at night. She was eating her meals with prompting. She did need help with her ADLs. She was oriented to person. She was disoriented to place, time, and situation. She took all of her medications. She was able to be easily redirected. She does not have behavior problem. She is not combative or aggressive behavior in the last week in the hospital. Family is from [facility] and wanted her discharged to that area, but we are not able to find placement in that [facility] area. She was sent to the [facility] in [place], [place] which was accepted. The patient's was agreeable with this plan. DISCHARGE DIAGNOSES: Delusional disorder; generalized anxiety disorder; major depressive disorder; Alzheimer type dementia with behavior disturbance. DISCHARGE PLAN: 1. The patient is being discharged to the [facility] in [place], [place] in stable condition. 2. The patient is going to continue her current medications as stated above. She will also takes lisinopril 10 mg p.o. daily for hypertension. 3. She will follow up with a psychiatrist at the [facility] in [place], [place]. Paxton Fowler IV MD DR: /talya JOB# [id number]
== END 2017-10-24 09:45 | DRG 885 ==
LOC: ER 19:46 → EEVIPCON 21:52 → GP 21:52
PROVIDERS: ADMIT Psychiatry & Neurology Psychiatry; ATTEND Psychiatry & Neurology Psychiatry
DX: F33.3 Major depressive disorder, recurrent, severe with psychotic symptoms (principal); F02.81 Dementia in other diseases classified elsewhere, unspecified severity, with behavioral disturbance; N39.0 Urinary tract infection, site not specified; R45.851 Suicidal ideations; N19 Unspecified kidney failure; I10 Essential (primary) hypertension; F41.1 Generalized anxiety disorder; G30.9 Alzheimer's disease, unspecified; Z79.899 Other long term (current) drug therapy
CPT/HCPCS: 36415; 71046; 80053; 80061; 80307; 81000; 82948; 83036; 84443; 84703; 85025; 87077; 87086; 87186; 93005; 97150; 97165; 99285; G0481; G0482; G0483; G8987; G8988

== ENCOUNTER 2018-05-27 18:20 | Inpatient (IN) | payer MEDICARE ==
[~2018-05-27] VITALS: Ht 160 cm; Wt 73.5 kg
[~2018-05-27 18:20] MED LIST: ALPR0.254 PO; CITA40TA12 PO; DONE5TAB7 PO; DULO60CA7 PO; LISI10TA2 PO; LORA-447 PO; MEMA10TA PO; RISP0.2518 PO
[2018-05-27 18:36] VITALS: BP 18/100
[2018-05-27 19:17] LABS: BASOPHIL # 0.1 10^3/uL (0.0-0.1); BASOPHIL % 0.7 % (0.0-0.2); EOSINOPHIL % 0.3 % (0.0-5.0); HEMOGLOBIN 14.3 g/dL (12.0-15.0); LYMPHOCYTES # 2.3 10^3/uL (1.0-4.8); LYMPHOCYTES % 22.4 % (24.0-44.0); MEAN CELL HGB 30.4 pg (26-34); MEAN CORP VOLUME 89.6 fL (78-100); MEAN PLATELET VOLUME 8.9 fL (7.8-11.0); MONOCYTES # 0.7 10^3/uL (0.3-0.8); MONOCYTES % 7.1 % (5.0-12.0); NEUTROPHILS % 69.2 % (41.0-85.0); RED CELL DISTRIBUTION WIDTH 13.7 % (11.5-14.5); WHITE BLOOD CELL 10.1 10^3/uL (4.5-11.0)
--- NOTE | 2018-05-27 19:37 | ER.PDOC ---
General Chief Complaint: Requesting Medical Care Stated Complaint: MEDICAL CLEARANCE Time seen by MD: 19:29 Source: intermediate records Exam Limitations: clinical condition, other (poor cooperation) History of Present Illness Initial Comments Pt sent by intermediate for admission to [facility], has paperwork already and is needing medical clearance. Timing/Duration: this afternoon Intent: Suicide Allergies: Coded Allergies: No Known Allergies (Unverified , 09/28/17) Home Meds Active Scripts Lorazepam (ATIVAN) 0.5 Mg Tablet, 0.5 MG PO BID for 30 Days, TABLET Prov:JORDEN RIVAS IV, MD 10/17/17 Risperidone (RISPERDAL) 0.25 Mg Tablet, 0.5 MG PO BID for 30 Days, TABLET Prov:JORDEN RIVAS IV, MD 10/17/17 Citalopram Hydrobromide (CELEXA) 40 Mg Tablet, 40 MG PO DAILY for 30 Days, TABLET Prov:JORDEN RIVAS IV, MD 10/17/17 Reported Medications Lisinopril (LISINOPRIL) 10 Mg Tablet, 1 TAB PO DAILY, #30 TAB 5 Refills 09/28/17 Memantine Hcl (NAMENDA) 10 Mg Tablet, 1 TAB PO BID, #180 TAB 1 Refill 09/28/17 Donepezil Hcl (DONEPEZIL HCL) 5 Mg Tablet, 1 TAB PO DAILY, #30 TAB 5 Refills 09/28/17 Past Medical History Surgical History: cholecystectomy Social History Drug Use: none Review of Systems Constitutional: no symptoms reported (pt is poor historain and does not answer all questions) Cardiovascular: no symptoms reported Gastrointestinal: no symptoms reported Musculoskeletal: no symptoms reported Skin: no symptoms reported Physical Exam General Appearance: Alert (Cried briefly at onset of interview) EENT: No nystagmus, PERRLA, EOM's intact, NML ENT inspection, Pharynx nml, NML gag reflex Neck: Non-Tender, Full Range of Motion, Supple, Normal Inspection Respiratory: chest non-tender, lungs clear, normal breath sounds, no respiratory distress, no accessory muscle use Cardiovascular: Normal Peripheral Pulses, Regular Rate, Rhythm, No Edema, No Gallop, No JVD, No Murmur Gastrointestinal: Normal Bowel Sounds, No Organomegaly, No Pulsatile Mass, Non Tender, Soft Extremities: Non-Tender, Normal Range of Motion, No Evidence of Trauma, No Edema Neurological/Psychiatric: Alert (flat affec) Behavior/Eye Contact/Speech: Avoids Eye Contact, Refused to Answer Skin: Normal Color, Warm/Dry Results/Orders Results/Orders Laboratory Tests Test 05/27/18 19:02 05/27/18 20:50 White Blood Count 10.1 10^3/uL (4.5-11.0) Red Blood Count 4.70 10^6/uL (4.00-5.20) Hemoglobin 14.3 g/dL (12.0-15.0) Hematocrit 42.1 % (36.0-46.0) Mean Corpuscular Volume 89.6 fL (78-100) Mean Corpuscular Hemoglobin 30.4 pg (26-34) Mean Corpuscular Hemoglobin Concent 34.0 g/dL (33-37) Red Cell Distribution Width 13.7 % (11.5-14.5) Platelet Count 281 10^3/uL (150-400) Mean Platelet Volume 8.9 fL (7.8-11.0) Neutrophils (%) (Auto) 69.2 % (41.0-85.0) Lymphocytes (%) (Auto) 22.4 % (24.0-44.0) Monocytes (%) (Auto) 7.1 % (5.0-12.0) Neutrophils # (Auto) 7.0 10^3/uL (1.8-7.7) Lymphocytes # (Auto) 2.3 10^3/uL (1.0-4.8) Monocytes # (Auto) 0.7 10^3/uL (0.3-0.8) Absolute Immature Granulocyte (auto 0.03 10^3 u/L (0-2) Eosinophils % 0.3 % (0.0-5.0) Basophils % 0.7 % (0.0-0.2) Basophils # 0.1 10^3/uL (0.0-0.1) Eosinophil Count 0.0 10^3/uL (0.0-0.2) Prothrombin Time 11.1 SEC (9.8-11.9) Prothrombin Time INR (Non-Therap) 1.1 Activated Partial Thromboplast Time 25.0 SEC (24.67-30.72) Sodium Level 141 mmol/L (132-145) Potassium Level 4.0 mmol/L (3.6-5.2) Chloride Level 104.0 mmol/L (96-109) Carbon Dioxide Level 25.8 mmol/L (20.0-32) Anion Gap 15.2 Blood Urea Nitrogen 26 mg/dL (7-18) Creatinine 1.48 mg/dL (0.59-1.40) Estimated GFR () 42.6 (>/=60) BUN/Creatinine Ratio 17.0 Glucose Level 93 mg/dL (70-110) Calcium Level 9.5 mg/dL (8.4-10.5) Total Bilirubin 0.5 mg/dL (0.2-1.0) Aspartate Amino Transf (AST/SGOT) 12 U/L (0-35) Alanine Aminotransferase (ALT/SGPT) 20 U/L (12-78) Alkaline Phosphatase 102 U/L (50-136) Total Creatine Kinase 64 U/L (26-192) Troponin I < 0.02 ng/mL (0.00-0.05) Pro-B-Type Natriuretic Peptide 110 pg/mL (0-125) Total Protein 7.5 g/dL (6.4-8.2) Albumin 4.0 g/dL (3.4-5.0) Globulin 3.5 Vitamin B12 Level 517 pg/mL (193-986) Thyroid Stimulating Hormone (TSH) 1.570 mIU/mL (0.358-3.740) Percent Immature Gran (Cell Imm) 0.30 % (0.00-0.50) Urine Collection Type UNKNOWN Urine Color YELLOW (YELLOW) Urine Appearance CLEAR (CLEAR) Urine Bilirubin NEGATIVE MG/DL (NEGATIVE) Urine Ketones NEGATIVE (NEGATIVE) Urine Specific [place] 1.020 (1.005-1.035) Urine pH 5 (5.0-6.0) Urine Protein NEGATIVE (NEGATIVE) Urine Urobilinogen NORMAL (NEGATIVE) Urine Nitrate NEGATIVE (NEGATIVE) Urine Leukocyte Esterase 25 /uL TRACE (NEGATIVE) Urine Blood NEGATIVE (NEGATIVE) Urine RBC NONE SEEN RBC/HPF (NONE Urine WBC 2-5 WBC/HPF (0-2) Urine Squamous Epithelial Cells FEW #/HPF (FEW) Urine Bacteria MODERATE (NONE SEEN) Urine Glucose NORMAL (NEGATIVE) Urine Opiates, Qualitative NEGATIVE ng/mL (CUT-OFF:300) Urine Methadone, Qualitative POSITIVE ng/mL (CUT-OFF:300) Urine Amphetamine Qualitative NEGATIVE ng/mL (CUTOFF:1000) Urine Barbiturates, Qualitative NEGATIVE ng/mL (CUT-OFF:200) Urine Phencyclidine Screen NEGATIVE ng/mL (CUT-OFF:25) Urine MDMA (Ecstasy), Qualitative NEGATIVE ng/mL (CUT-OFF:300) Urine Benzodiazepines Screen NEGATIVE ng/mL (CUT-OFF:200) Urine Cocaine Qualitative NEGATIVE ng/mL (CUT-OFF:300) Ur Tetrahydrocannabinol (THC) Scrn NEGATIVE ng/mL (CUT-OFF:50) Progress Progress Medically cleared for admit to [facility] - Spoke with Hospitalist EKG/XRAY/CT/US EKG: NSR, no ST T wave changes Departure Time of Disposition: 21:00 Disposition: 09 ADMITTED INPATIENT Impression: Primary Impression: Suicidal ideations Condition: Stable Referrals: VARGHESE RICHTER MD (PCP) PRIMARY CARE PROVIDER Duration or Time Spent with Pa: 20 min' DELFINO HARVEY DO May 27, 2018 19:36
--- NOTE | 2018-05-27 19:45 | DIREP ---
PROCEDURE:CHEST 1 VIEW COMPARISON:[facility], CR, XRAY CHEST 2 VWS, 09/29/2017, 09:19 AM. INDICATIONS:Medical clearance FINDINGS: LUNGS/PLEURA:No significant pulmonary parenchymal abnormalities. No effusions. VASCULATURE:Normal. Unremarkable pulmonary vasculature. CARDIAC:Median sternotomy changes are seen with the heart size normal. MEDIASTINUM:Normal. No visible mass or adenopathy. BONES:Normal. No fracture or visible bony lesion. OTHER:Multiple surgical clips are again noted overlying the right upper chest. CONCLUSION:Previous sternotomy changes without acute cardiopulmonary disease. Dictated by: Alexei Candelaria M.D. on 05/27/2018 at 07:41 PM
--- NOTE | 2018-05-27 19:50 | PCM.EKG ---
[facility] Test Date: 2018-05-27 Test Time: 19:46:23 Pat Name: BI WARD Department: Room: 212 Gender: F Telecommunications Project Manager: MAXIMO : 1950 Requested By: LEANDRA CRUZ Order Number: [id number] Reading MD: Alexei Deleon Measurements Intervals [place] Rate: 88 P: 54 NH: 162 QRS: 43 QRSD: 72 T: 77 QT: 370 QTc: 447 Interpretive Statements Normal sinus rhythm Septal infarct, age undetermined Abnormal ECG Compared to ECG 09/28/2017 20:18:44 No significant changes Electronically Signed On 05-29-2018 12:24:39 [employer]IN[employer]NANCE by Alexei Deleon Please click the below link to view image of tracing.
[2018-05-27 19:55] LABS: ALANINE AMINOTRANSFERASE(ML) 20 U/L (12-78); ALKALINE PHOSPHATASE 102 U/L (50-136); ASPARTATE AMINO TRANSFERASE 12 U/L (0-35); CALCIUM 9.5 mg/dL (8.4-10.5); CARBON DIOXIDE 25.8 mmol/L (20.0-32); GLUCOSE 93 mg/dL (70-110)
[2018-05-27 21:03] LABS: APPEARANCE,URINE CLEAR (CLEAR); BILIRUBIN,URINE NEGATIVE (NEGATIVE); UA COLOR YELLOW (YELLOW); UROBILINOGEN,URINE NORMAL (NEGATIVE)
[2018-05-27 21:55] VITALS: BP 171/98
[2018-05-27] MEDS ORDERED: NAMENDA PO ONE (23:00)
[2018-05-27] MEDS ORDERED: ARICEPT PO ONE (23:00)
[2018-05-27] MEDS ORDERED: CYMBALTA PO ONE (23:00)
[2018-05-27] MEDS ORDERED: RISPERDAL PO SCH (23:00)
[2018-05-27] MEDS ORDERED: CYMBALTA ONE (23:16)
[2018-05-27] MEDS ORDERED: ARICEPT ODT ONE (23:17)
--- NOTE | 2018-05-27 23:30 | NUR ---
ARRIVAL TO UNIT PT. ARRIVED ON UNIT AT 2154 VIA W/C,ACCOMPANIED BY VEHICLE DAMAGE APPRAISER,ELIZABETH Rico RN. PT. IS 68 YEAR OLD FEMALE WHO IS LIVING AT [facility] WHERE SHE EXPRESSED THAT SHE WANTED TO HURT HERSELF , SAYING HER HATES HER AND THAT SHE IS UGLY THEN DOESN'T REMEMBER SAYING THAT. PT. WAS ALSO CRYING AT DETENTION. ORIENTED TO NAME NOT MONTH OR YEAR DR. RIVAS VISITED WITH PT. VIA FOREFRONT AT 2205. VERBAL ORDERS WERE RECEIVED. DR. COCHRAN NOTIFIED AT 2250 AND HE STATED HE WOULD VIEW THE MEDICATIONS AND RECONCILE. PT. DX. IS MAJOR DEPRESSION WITH SI. PT. STATED SHE IS DEPRESSED WHEN ASKED BUT COULD NOT RATE ON A SCALE FROM 0-10 DENIED SI TONIGHT. PT.'S ROOM IS WITHIN DIRECT LINE OF SITE FROM NURSE'S DESK. DISCHARGE PLAN IS FOR PT. TO RETURN TO [facility]. WAS ASSISTED WITH HS ADLS AND TO BED. TOOK MEDICATION ORDERED.
[2018-05-28] MEDS ORDERED: HALDOL PO PRN
[2018-05-28] MEDS ORDERED: HALDOL IM PRN
[2018-05-28] MEDS ORDERED: ATIVAN IM PRN
--- NOTE | 2018-05-28 02:59 | PSYCH ---
DATE OF SERVICE: 05/27/2018 INITIAL PSYCHIATRIC ADMISSION NOTE CHIEF COMPLAINT: The patient was referred by the [facility] for suicidal ideation. HISTORY OF PRESENT ILLNESS: The patient is a 68-year-old female with a history of depression, psychosis, dementia, and anxiety. The patient is currently living at the [facility] in [place], [place]. She was extremely distraught and crying earlier today. She was threatening suicide for staff. They had to put her on 1:1 monitoring. They were concerned about her safety and wanted her to have inpatient care. She did get admitted involuntarily. The patient struggles with severe dementia. She was able to state her name today. She does not know her date of . She was disoriented to place, time, and situation. She was an extremely poor historian. She was not able to answer questions very well. She has loose associations. She has a flight of ideas. She has paranoia. She has a labile affect. She cries very easily. She was tearful during the interview with Dr. Fowler. She denied feeling depressed. She denied suicidal or homicidal ideations tonight. She was not having auditory or visual hallucinations. She has odd and delusional thinking related to her severe dementia. She has a moderate to high anxiety level. She was not angry or aggressive while on the unit and interviewed by Dr. Fowler. She tried to be cooperative. She was not manic or hypomanic. She was not in any physical pain. She denies feelings of guilt. She has a poor concentration level. PAST PSYCHIATRIC HISTORY: The patient was admitted to the inpatient unit at the [facility] in 2018. She has a history of depression, psychosis, dementia, and anxiety. She has been on multiple psychotropic medications in the past. She was not able to give any other past psychiatric history. PAST MEDICAL HISTORY: 1. Alzheimer type dementia. 2. Hypertension. ALLERGIES: No known drug allergies. CURRENT MEDICATIONS: 1. Cymbalta 120 mg p.o. at bedtime. 2. Aricept 10 mg p.o. at bedtime. 3. Lisinopril 10 mg p.o. daily. 4. Namenda 10 mg p.o. b.i.d. 5. Risperdal 1 mg p.o. at bedtime. FAMILY PSYCHIATRIC HISTORY: None reported. SOCIAL HISTORY: The patient was at the [facility]. She is not known to use tobacco, alcohol, or illicit drugs. She does have social support from family. She was not able to give any other social history tonight. OBJECTIVE VITAL SIGNS: Pulse is 84, O2 saturation was 95% on room air, temperature is 98.4, blood pressure is 170/90, and respirations were 18. The patient was in no physical pain or distress at the time of the interview. REVIEW OF SYSTEMS: CONSTITUTIONAL: No recent change in weight. No fatigue. No insomnia. NEUROLOGICAL: No tremors. No weakness. No dizziness. PSYCHIATRIC: Positive for depression. Positive for anxiety. Positive for psychosis. Positive for delusions. No di. GASTROINTESTINAL: No diarrhea, no constipation, no nausea, no vomiting, no GERD symptoms. GENITOURINARY: No problems urinating. No pain on urination. CARDIOVASCULAR: No chest pain or chest palpitations. RESPIRATORY: No shortness of breath. No wheezing or coughing. SKIN: No problems reported. ENDOCRINE: No heat or cold intolerance. EXTREMITIES: No swelling or edema. EYES: No recent changes in vision. EARS: No recent changes in hearing. MUSCULOSKELETAL: No abnormal muscle movements. No musculoskeletal pain reported. Review of systems is otherwise negative and reviewed by Dr. Fowler. MENTAL STATUS EXAMINATION: MUSCLE STRENGTH AND TONE: Within normal limits for age. GAIT AND STATION: Within normal limits for age. APPEARANCE: Well-groomed and good hygiene. Appears stated age. Casual attire. Normal weight. ATTITUDE AND BEHAVIOR: Uncooperative. Poor eye contact. Psychomotor agitation at times. MOOD AND AFFECT: Mood is depressed. Affect is labile. ATTENTION/CONCENTRATION: Poor attention and poor concentration. ORIENTATION: Oriented to person only. Disoriented to place, time, and situation. SPEECH: Impaired. JUDGMENT AND INSIGHT: Poor judgment and poor insight. THOUGHT PROCESS: Loose and tangential. Disorganized. LANGUAGE: Malay. THOUGHT CONTENT: Negative for current suicidal or homicidal ideation. Reported suicidal ideation earlier today. No auditory or visual hallucinations. No paranoia. FUND OF KNOWLEDGE: Poor. ASSOCIATIONS: Loose associations. MEMORY: Recent and remote memory are both impaired. STRENGTHS: [facility]DC support. Healthy for age. WEAKNESSES: Poor judgment and poor insight. Severe dementia. COGNITIVE IMPAIRMENTS: Yes. ASSESSMENT: Major depressive disorder with psychotic features; generalized anxiety disorder; Alzheimer type dementia with behavior disturbance; hypertension. PROGNOSIS: Fair to guarded. ESTIMATED LENGTH OF STAY: 7 days. TREATMENT PLAN: 1. The patient will be an involuntary admission to the Behavioral Health Unit at the [facility]. The patient will be monitored closely for behaviors. 2. The patient will be started on Haldol 2 mg p.o. or IM q. 6 hours p.r.n. delusions and Ativan 0.5 mg p.o. or IM q. 6 hours p.r.n. anxiety. The patient will continue Cymbalta 120 mg p.o. at bedtime, Risperdal 1 mg p.o. at bedtime, Aricept 10 mg p.o. at bedtime and Namenda 10 mg p.o. b.i.d. The patient has been tolerating these medications fine: 3. The patient will see the general medical doctor for general medical health issues. 4. The patient was encouraged to participate in all groups and activities. 5. The patient will be ____ tonight to monitor for suicidal ideation. Paxton Fowler IV MD DR: /talya JOB# [id number]
[2018-05-28] MEDS ORDERED: ZESTRIL PO SCH (09:00)
[2018-05-28] MEDS: NAMENDA PO SCH ×2 (10:19→20:21)
--- NOTE | 2018-05-28 11:28 | PRM.PN ---
Mood: HAS BEEN CRYING ON THE UNIT. LABILE Sleep: SLEPT 6.25 HOURS. Appetite: GOOD Suidical thoughts: "I DON'T KNOW" Homicidal thoughts: "I DONT' KNOW" Recent stressors: INCREASED MENTAL ILLNESS Family support: GOOD Aggressive Behavior: NONE NOTED Ability to Perform ADL'sc: FAIR Psychotic sympstoms: DENIES Manic Symptoms: NONE NOTED Living situation: CARE HOME Illicit Drug usec: NONE Alcoholo use: NONE Tobacco use: NONE Family,PT,Surgical,&Current HX: (1) Dementia Anxity Symptoms: REPORTS BEING SCARED AND WORRIED, UNABLE TO IDENTIFY THE TRIGGER. Anger/Irritablility: NONE Muscle Strength & Tone: WNL Gait & Station: WNL Appearance: Well groomed/hygience, Casual attire, Normal weight Attitude & Behaviour: Poor eye contact Mood & Affect: Flat Orientation: Disoriented to place, Disoriented to time, Disoriented to situation Attention/Concentration: Poor attention, Poor concentration Speech: Impaired Judgement/Insight: Poor judgement, Poor insight Thought Process: Loose Language: Burmese Thought content/Abnormal/Psych: None/normal Fund of Knowledge: Other (LIMITED) Associations: KRYSTA Memory (recent and remote): Recent memory repaired, Remote memory repaired Constitutional: None Neurological: None Psychiatric: Depressed, Anxious [place] I: MAJOR DEPRESSIVE DISORDER, RECURRENT, SEVERE; DEMENTIA [place] II: DEFERRED [place] III: SEE MEDICAL CHART/PMH [place] IV: COGNITIVE DECLINE [place] V: 20 Assessment/Plan Assessment/Plan Patient History: Patient reports no known family medical history. Plan Vital Signs Date Time Temp Pulse Resp B/P (MAP) Pulse Ox O2 Delivery O2 Flow Rate FiO2 05/28/18 10:19 171/98 05/28/18 03:37 98.5 84 18 95 Room Air Allergies Coded Allergies Type Severity Reaction Last Updated Verified No Known Allergies 09/28/17 No Current Medications Medications (Trade) Dose Ordered Sig/Lluvia PRN Reason Start Time Stop Time Status Last Admin Donepezil HCl (Aricept Odt) 10 mg HS 05/28/18 21:00 06/27/18 20:59 Duloxetine HCl (Cymbalta) 120 mg HS 05/28/18 21:00 06/27/18 20:59 Haloperidol (Haldol) 2 mg Q6H PRN delusions 05/28/18 00:00 06/27/18 00:00 Haloperidol Lactate (Haldol) 2 mg Q6 PRN delusions 05/28/18 00:00 06/27/18 00:00 Lisinopril (Zestril) 10 mg DAILY 05/28/18 09:00 06/27/18 08:59 05/28/18 10:19 Lorazepam (Ativan) 0.5 mg Q6 PRN ANXIETY 05/28/18 00:00 06/27/18 00:00 Lorazepam (Ativan) 0.5 mg Q6 PRN ANXIETY 05/28/18 00:00 06/27/18 00:00 Miscellaneous Medication (Namenda) 10 mg BID 05/28/18 09:00 06/27/18 08:59 05/28/18 10:19 Risperidone (Risperdal) 1 mg HS 05/28/18 21:00 06/27/18 20:59 Intake and Output 05/28/18 07:01 Intake Total 120 ml Balance 120 ml Intake Oral 120 ml # Voids 1 THE PATIENT WAS SEEN BY JUJU CARMICHAEL VIA TELEMEDICINE EQUIPMENT (SUPPORTED BY [facility]) ALONG WITH THE TREATMENT TEAM. SHE IS EATING WELL. SHE SLEPT WELL LAST NIGHT. SHE IS A POOR HISTORIAN AND UNABLE TO RECALL INFORMATION. SHE IS TOLERATING HER MEDICATIONS WELL. SHE DOES NOT APPEAR TO BE SEDATED. SHE HAS BEEN CRYING ON THE UNIT AND IS FIXATED ON SEEING HER MOTHER AND HER , BUT THEN SHE WILL REPORT THAT HER DOES NOT LIKE HER. SHE WAS UNABLE TO TELL IF SHE WAS HAVING SI/HI AND SHE IS NOT ABLE TO IDENTIFY TRIGGERS FOR HER ANXIETY. ASSESSMENT: MDD, RECURRENT, SEVERE; DEMENTIA WITH BEHAVIORAL DISTURBANCES PLAN: 1. CONTINUE BEHAVIORAL HEALTH MANAGEMENT. 2. CONTINUE CURRENT MEDICATIONS PRESCRIBED. STAFF AGREEABLE WITH PLAN 3. ALL PATIENT QUESTIONS ANSWERED RELATED TO MEDICATIONS, PLAN OF CARE, AND EXPECTED OUTCOMES. 4. SAFETY PLAN DISCUSSED. JUJU CARMICHAEL NP May 28, 2018 11:28
--- NOTE | 2018-05-28 12:30 | NUR ---
DR COCHRAN: Notified Dr. Cochran of new patient on unit and need for H&P and neuro exam
--- NOTE | 2018-05-28 12:41 | NUR ---
SYMPTOMATOLOGY EVAL: PT RESENTED TO THE ER BY FACILITY FOR MEDICAL CLEARANCE DUE TO SUICIDAL IDEATIONS, DELUSIONAL THOUGHTS AND SYMPTOMS OF DEPRESSION. CUSTODIAL STAFF REPORTS PT REMAINS TEARFUL FOR UP TO TWO HOURS VERBALIZING THAT SHE IS UGLY & HER DON'T LOVE HER BECAUSE SHE IS SO UGLY. PT CURRENTLY RESIDES AT [facility] IN THE LOCKED UNIT. PT WILL RETURN TO CUSTODIAL UPON DISCHARGE. RECOMMENDED INPATIENT TREATMENT AT [facility] ON AN INVOLUNTARY STATUS AT THIS TIME. Addendum: 05/28/18 at 1249 by SIA Pathak Amended: Links added.
--- NOTE | 2018-05-28 13:19 | NUR ---
GMAS: UNABLE TO COMPLETE PT UNABLE TO PARTICIPATE IN ASSESSMENT DUE TO COGNITIVE DEFICITS. PT IS VERY TEARFUL & PRESENTS WITH A FLAT AFFECT. Addendum: 05/28/18 at 1320 by SIA Pathak Amended: Links added.
--- NOTE | 2018-05-28 13:21 | NUR ---
MMSE: 030 PT UNABLE TO PARTICIPATE IN ASSESSMENT DUE TO COGNITIVE DEFICITS. PT IS ORIENTED TO NAME WITH PRESENTATION. PT IS UNABLE TO STATE NAME INDEPENDENTLY. Addendum: 05/28/18 at 1324 by SIA Pathak Amended: Links added.
[2018-05-28] MEDS ORDERED: CATAPRES PO PRN (17:00)
[2018-05-28] MEDS: CIPRO PO SCH ×2 (17:00→20:21)
--- NOTE | 2018-05-28 17:39 | NUR ---
BEHAVIOR NOTE: PATIENT HAS BEEN UNABLE TO REDIRECT MOST OF DAY TODAY. SHE HAS TRIED TO UNLOCK DOORS, ENTERED OTHERS ROOMS, AND TRIED TO GRAB THINGS FROM FILING CABINET. SHE HAS BEEN TEARFUL AND UNABLE TO REASON WITH AND IS PARANOID AGAINST STAFF. THIS NURSE HAD TO GENTLY HUG PATIENT IN HALLWAY BECAUSE SHE WAS GRABBING THINGS OUT OF [place] FILING CABINET AND WOULD NOT REDIRECT, SHE TRIED TO BITE AND HIT THIS NURSE.. PATIENT IS DELUSIONAL, CONFUSED AND DISORIENTED. SHE HAS BEEN AGITATED AND COMBATIVE TOWARDS STAFF TRYING TO HIT AND BITE STAFF. PATIENT WAS GRABBING DINNER CART WHILE STAFF WAS TRYING TO GIVE SCHEDULED MEDICATIONS, SHE WAS AGITATED AND REFUSED. PATIENT THEN SAT IN CHAIR IN DAY ROOM AND WHILE THIS NURSE WAS TRYING TO WAKE PATIENT APPEARED TO IGNORE STAFF. STERNAL RUB WAS PERFORMED UNTIL PATIENT OPEN EYES AND IN AGITATED VOICE STATED "WHAT ARE YOU DOING?" THIS NURSE INFORMED PATIENT SHE WAS GETTING A HALDOL INJECTION 2 MG i Addendum: 05/28/18 at 1749 by GHANSHYAM Thompson RN CONT. INJECTION. CHRISTO VAN APPLIED GENTL HAND HOLD WHILE INJECTION WAS GIVEN. pATIENT THEN SAID "THANK YOU" Addendum: 05/28/18 at 1805 by Che Guerrero, RN - GP RN WRONG PATIENT NOTE PLEASE DISREGARD.
--- NOTE | 2018-05-28 18:05 | NUR ---
BEHAVIOR NOTE: PATIENT HAS REQUIRED CONSTANT SUPERVISION D/T COGNITIVE PROBLEMS ALONG WITH FALL RISK. SHE HAS BEEN TEARFUL AND STATES "I'M UGLY". "MY HATES ME". PATIENT HAS POOR JUDGEMENT AND SEVERE ALZHEIMERS DEMENTIA THAT HAS PROGRESSED RAPIDLY OVER THE PAST FEW YEARS. STAFF HAS HAD TO STAY WITH HER BECAUSE SHE HAS POOR IMPULSE CONTROL AND IS A FALL RISK.
--- NOTE | 2018-05-28 18:35 | NUR ---
PIRP: p: ALTERED THOUGHT PROCESS, ALTERED MOOD. I: Provide medications as ordered by physician. Encourage attendance and participation of all groups. Allow patient to voice feelings and concerns. Assist patient in differentiating between internal and external reality. Assist patient as needed for prevention of falls. Provide nonskid socks. R: Patient has taken all medications as ordered. She has been tearful and unable to console. She is delusional in thinking her thinks she is ugly and hates her when infact her is concerned of her well being and supportive. She has not been combative or aggressive. P: COntinue current plan of care.
--- NOTE | 2018-05-28 18:45 | NUR ---
PIRP: P: ALTERED THOUGHT PROCESS, ALTERED MOOD I: PROVIDED MEDICATION PRESCRIBED BY PHYSICIAN, Q 15 MINUTE SAFETY CHECKS, ENCOURAGE ATTENDANCE AND PARTICIPATION IN GROUP, ANNAMARIA PT TO VOICE FEELINGS AND CONCERNS, PT. TO WEAR YELLOW NON SKID SOCKS FOR PREVENTION OF FALLS. R: PT. HAS TAKEN ALL MEDS ORDERED BY PHYSICIAN, PT. HAS BEEN TEARFUL MOST OF THE DAY. PT. HAS BEEN ASKING FOR HER MOTHER AND AND SAYING SHE LOVES THEM SO MUCH. PT. NEEDS PROMPTING TO FOLLOW COMMANDS, PT. HAS NOT COMBATIVE OR AGGRESSIVE. PT. HAS BEEN COOPERATIVE. PT, IS ABLE TO BE REDIRECTED. PT. IS UNABLE TO BE CONSOLED WHEN SHE IS CRYING. P: CONTINUE CURRENT TX PLAN.
--- NOTE | 2018-05-28 19:05 | HPH ---
ADMIT DATE: 05/27/2018 CHIEF COMPLAINT: Agitation and anxiety. HISTORY OF PRESENT ILLNESS: This is a 68-year-old female with a past medical history significant for severe dementia as well as severe peripheral vascular disease and cardiovascular disease, who presents to the [facility] after she has been having a worsening of her behavior over the last several days. She is currently living at the [facility] in [facility] and apparently has been having several days of worsening mental status including agitation, anxiety, acting out and has been crying a lot. Emotions have been apparently very labile. She is not sleeping well and the staff noticed that she is just not acting like herself. She is unable to answer questions regarding suicidal thoughts or homicidal thoughts. She only can endorse being scared and worried, but unable to identify what the cause is of this. During my interview of the patient, she is severely confused and has very tangential thought processing and speech. She is unable to clearly answer questions with any type of appropriate response. PAST MEDICAL HISTORY: 1. Severe Alzheimer dementia. 2. Peripheral arterial disease. 3. History of multiple aneurysms repaired. 4. Hypertension. 5. Osteoarthritis. 6. Major depressive disorder. 7. Generalized anxiety. MEDICATIONS: See admit medication reconciliation form. ALLERGIES: No known drug allergies. PAST SURGICAL HISTORY: 1. Previous repair of ascending aortic aneurysm. 2. Previous repair of thoracic aortic aneurysm. 3. Remainder of surgeries unknown. SOCIAL HISTORY: Alcohol, tobacco: None. The patient currently lives in [facility] in [place]. FAMILY HISTORY: Unknown. REVIEW OF SYSTEMS: Unable to obtain any review of systems secondary to the patient's confusion. PHYSICAL EXAMINATION: VITAL SIGNS: Temperature 98.3, pulse 110, respirations 20, blood pressure is 171/98, oxygen saturation is 91% on room air. GENERAL: This is a weak appearing female, in no acute distress. She is unsteady on her feet. HEENT: Atraumatic, normocephalic. Sclerae are clear and anicteric. Oral mucosa is moist. NECK: Soft, supple, normal range of motion. No tenderness, bruits, goiter, mass or adenopathy. There is no JVD. LUNGS: Clear to auscultation bilaterally. HEART: Regular rate and rhythm without murmurs, S3 or S4. ABDOMEN: Soft, nontender, nondistended. Positive bowel sounds. No masses felt. EXTREMITIES: Warm and well perfused without evidence of edema, cyanosis or clubbing. NEUROLOGIC: Cranial nerves 2-12 are grossly intact and symmetric. Upper and lower extremity strength is 5/5 with flexion and extension of the extremities. SKIN: Intact. PSYCHIATRIC: The patient is disoriented and is unable to tell me her name or answer any further questions to orientation. LABORATORY DATA: WBC 10.1, hemoglobin 14.3, hematocrit 42.1, platelets 281. . PTT 25, PT 11.1. Sodium 141, potassium 4.0, chloride 104, CO2 of 25.8, BUN 26, creatinine 1.48, glucose 93, hemoglobin A1c 6, calcium 9.5, AST 12, ALT 20, CK 24. Troponin less than 0.02. Vitamin B12 of 517, TSH 1.570. Urinalysis: Moderate bacteria. Toxicology: Positive for methadone. MICROBIOLOGY: Preliminary urine pending. Chest x-ray - "previous sternotomy changes without acute cardiopulmonary disease." IMPRESSION: 1. Mental status change. 2. Dementia with behavioral disturbance. 3. Tachycardia. 4. Acute renal failure. 5. Urinary tract infection. 6. Peripheral arterial disease. 7. Severe Alzheimer dementia. PLAN: 1. The patient is admitted to [facility]. 2. Etiology of exacerbation of mental status symptoms is unclear, but certainly could be caused by urinary tract infection. I would like to start her on ciprofloxacin 500 mg twice daily for 7 days and see if this might help her mental status. 3. Unclear etiology of renal insufficiency, but may be secondary to dehydration. We will push for aggressive oral fluid intake at this point and follow her as clinically indicated. 4. Resume lisinopril for her blood pressure control and I will also provide clonidine for p.r.n. blood pressure control. This may simply just be due to her worsening anxiety. 5. Otherwise, the patient is clear from my standpoint to participate in psychiatric and psychologic management. 6. I do recommend that she be on a baby aspirin at 81 mg p.o. daily. Ganga Fitzgerald MD DR: NATHANIEL/talya JOB# [id number]
[2018-05-28] MEDS ORDERED: RISPERDAL ONE (19:58)
[2018-05-28] MEDS ORDERED: CYMBALTA ONE (19:58)
[2018-05-28] MEDS ORDERED: ARICEPT ODT ONE (19:58)
[2018-05-28 20:06] VITALS: BP 144/83
[2018-05-28] MEDS: ARICEPT ODT PO SCH (20:20)
[2018-05-28] MEDS: RISPERDAL PO SCH (20:20)
[2018-05-28] MEDS: CYMBALTA PO SCH (20:20)
--- NOTE | 2018-05-29 04:42 | NUR ---
-PIRP: P: Altered thought process; Altered mood I: Provide medications as ordered by physician. Encourage attendance and participation of all groups. Allow patient to voice feelings and concerns. Assist patient in differentiating between internal and external reality. Assist patient as needed for prevention of falls. Provide nonskid socks. R: The patient remained seclusive to self in room this shift. She appeared guarded for assessment questions, answering most questions with just "yes" or "no". The patient denies depression and states "I am good". She denies suicidal or homicidal ideation and hallucinations. As, the patient has remained isolated to self in room, no delusions have been observed this shift. The patient was compliant with evening medications. She has slept 8 hours as of this time P: Continue current plan of care. Will continue to monitor patient and maintain safety
[2018-05-29 07:53] VITALS: BP 130/90
[2018-05-29] MEDS ORDERED: ZESTRIL ONE (09:46)
[2018-05-29] MEDS: ASPIRIN PO SCH (09:50)
[2018-05-29] MEDS: NAMENDA PO SCH ×2 (09:51→20:14)
[2018-05-29] MEDS: CIPRO PO SCH ×2 (09:51→20:15)
[2018-05-29] MEDS: ZESTRIL PO SCH (09:51)
--- NOTE | 2018-05-29 09:53 | NUR ---
TELEMED PT WAS SEEN BY Darwin CARMICHAEL, JENNIE, PATIENT ACCESS DIRECTOR. RECEIVED ORDERS TO START SCHEDULED RISPERDAL IN A.M., SEE EMR.
--- NOTE | 2018-05-29 10:05 | PRM.PN ---
Mood: LABILE, TEARFUL Sleep: SLEPT 9.5 HOURS Appetite: GOOD Suidical thoughts: DENIES Homicidal thoughts: DENIES Recent stressors: COGNITIVE DECLINE Family support: GOOD Aggressive Behavior: NONE Ability to Perform ADL'sc: FAIR Psychotic sympstoms: DELUSIONAL THINKING RELATED TO HER Manic Symptoms: MOOD SWINGS Living situation: [facility] Illicit Drug usec: NONE Alcoholo use: NONE Tobacco use: NONE Family,PT,Surgical,&Current HX: (1) Dementia (2) Delusional disorder Anxity Symptoms: DENIES, TEARFUL AT TIMES Anger/Irritablility: NONE NOTED Muscle Strength & Tone: WNL Gait & Station: WN Appearance: Well groomed/hygience, Casual attire, Normal weight, Appears age stated Mood & Affect: Iabile Orientation: Disoriented to place, Disoriented to time, Disoriented to situation Attention/Concentration: Poor attention, Poor concentration Speech: Reg rate/vol/rhyth/prosod Judgement/Insight: Poor judgement, Poor insight Thought Process: Loose Language: Swedish Thought content/Abnormal/Psych: Delusions Fund of Knowledge: Other Associations: KRYSTA Memory (recent and remote): Recent memory repaired, Remote memory repaired Constitutional: None Neurological: None Psychiatric: Depressed, Crying [place] I: DELUSIONAL DISORDER, DEMENTIA WITH BEHAVIORAL DISTURBANCES [place] II: DEFERRED [place] III: SEE MEDICAL CHART/PMH [place] IV: INCREASED COGNITIVE DECLINE [place] V: 25 Assessment/Plan Assessment/Plan Patient History: Patient reports no known family medical history. Plan Vital Signs Date Time Temp Pulse Resp B/P (MAP) Pulse Ox O2 Delivery O2 Flow Rate FiO2 05/29/18 09:51 130/90 05/29/18 07:53 98.6 87 16 96 Room Air 98.6 Allergies Coded Allergies Type Severity Reaction Last Updated Verified No Known Allergies 09/28/17 No Current Medications Medications (Trade) Dose Ordered Sig/Lluvia PRN Reason Start Time Stop Time Status Last Admin Aspirin (Aspirin) 81 mg DAILY 05/29/18 09:00 06/28/18 08:59 05/29/18 09:50 Ciprofloxacin (Cipro) 500 mg BID 05/28/18 17:00 05/31/18 19:00 05/29/18 09:51 Clonidine (Catapres) 0.1 mg Q6 PRN HYPERTENSION 05/28/18 17:00 06/27/18 16:59 Donepezil HCl (Aricept Odt) 10 mg HS 05/28/18 21:00 06/27/18 20:59 05/28/18 20:20 Duloxetine HCl (Cymbalta) 120 mg HS 05/28/18 21:00 06/27/18 20:59 05/28/18 20:20 Haloperidol (Haldol) 2 mg Q6H PRN delusions 05/28/18 00:00 06/27/18 00:00 Haloperidol Lactate (Haldol) 2 mg Q6 PRN delusions 05/28/18 00:00 06/27/18 00:00 Lisinopril (Zestril) 20 mg DAILY 05/29/18 09:00 06/28/18 08:59 05/29/18 09:51 Lorazepam (Ativan) 0.5 mg Q6 PRN ANXIETY 05/28/18 00:00 06/27/18 00:00 Lorazepam (Ativan) 0.5 mg Q6 PRN ANXIETY 05/28/18 00:00 06/27/18 00:00 Miscellaneous Medication (Namenda) 10 mg BID 05/28/18 09:00 06/27/18 08:59 05/29/18 09:51 Risperidone (Risperdal) 1 mg HS 05/28/18 21:00 06/27/18 20:59 05/28/18 20:20 Intake and Output 05/29/18 07:01 Intake Total 962 ml Balance 962 ml Intake Oral 962 ml THE PATIENT WAS SEEN BY JUJU CARMICHAEL VIA TELEMEDICINE EQUIPMENT (SUPPORTED BY [facility]) ALONG WITH THE TREATMENT TEAM. SHE IS SLEEPING AND EATING FAIR. SHE IS A POOR HISTORIAN AND IS FIXATED ON THAT HER HAS LEFT HER AND WANTING TO GO HOME. SHE IS TOO CONFUSED TO ANSWER APPROPRIATELY. SHE IS ABLE TO ANSWER SOME YES/NO QUESTIONS. SHE BECAME TEARFUL DURING THE INTERVIEW DUE TO BEING WORRIED ABOUT HURTING SOMEONE ANY MYSELF. SHE DENIES SI/HI. SHE IS UNABLE TO ANSWER ABOUT HALLUCINATIONS. SHE IS UNABLE TO DISCLOSE ANY SIDE EFFECTS. SHE LEFT DURING THE INTERVIEW DUE TO "NEEDING TO MEET WITH FRIENDS." ASSESSMENT: DELUSIONAL DISORDER, DEMENTIA WITH BEHAVIORAL DISTURBANCES PLAN: 1. CONTINUE BEHAVIORAL HEALTH MANAGEMENT. 2. START RISPERAL 0.5MG 1 PO DAILY. FIRST DOSE TODAY. CONTINUE ALL OTHER CURRENT MEDICATIONS PRESCRIBED. STAFF AGREEABLE WITH PLAN 3. ALL PATIENT QUESTIONS ANSWERED RELATED TO MEDICATIONS, PLAN OF CARE, AND EXPECTED OUTCOMES. 4. SAFETY PLAN DISCUSSED. JUJU CARMICHAEL NP May 29, 2018 10:05
[2018-05-29] MEDS: RISPERDAL PO SCH ×2 (11:10→20:15)
--- NOTE | 2018-05-29 15:34 | NUR ---
PIRP: P: ALTERED THOUGHT PROCESS, ALTERATION IN MOOD I: PROVIDE MEDICATIONS PRESCRIBED BY PHYSICIAN, PROVIDE NON SKID SOCKS, ALLOW PT EXPRESS FEELINGS AND CONCERNS, ENCOURAGE ATTENDANCE AND PARTICIPATION IN GROUP. PROVIDE QUIET ENVIRONMENT FOR SLEEP, PROVIDE REALITY ORIENTATION, PROVIDE Q 15 MINUTE SAFETY CHECKS. R: PT. TAKING MEDS ORDERED BY PHYSICIAN, PT. WEARING NON SKID SOCKS, PT. ATTENDS GROUP AND IS ABLE TO DO SOME THINGS WITH A LOT OF PROMPTING. PT. SLEPT 9.50 HOURS. PT. IS ORIENTED TO SELF ONLY MOST OF THE TIME. Q 15 MINUTE SAFETY CHECKS ARE PROVIDED. PT. IS TEARFUL, DELUSIONAL CONFUSED AND HAS EXPRESSIVE APHAGIA. P: CONTINUE CURRENT TX. PLAN
[2018-05-29 19:29] VITALS: BP 134/87
[2018-05-29] MEDS: CYMBALTA PO SCH (20:14)
[2018-05-29] MEDS: ARICEPT ODT PO SCH (20:15)
--- NOTE | 2018-05-30 04:16 | NUR ---
-PIRP: P: Altered thought process; Altered mood I: Provide medications as ordered by physician. Encourage attendance and participation of all groups. Allow patient to voice feelings and concerns. Assist patient in differentiating between internal and external reality. Assist patient as needed for prevention of falls. Provide nonskid socks. R: The patient continues to remain isolated to self in room during date night sitter. She continues to be guarded for assessment questions, answering questions with only "yes" or "no". As the patient has remained isolated to self in room, no delusions have been observed this shift. She refused offers to socialize with staff and peers in the dayroom and offers of PM snack. The patient was compliant with evening medications. As of this time, she has slept 7.75 hours. P: Continue current plan of care. Will continue to monitor patient and maintain safety
[2018-05-30 08:11] VITALS: BP 134/80
[2018-05-30] MEDS: CIPRO PO SCH ×2 (08:36→20:16)
[2018-05-30] MEDS: RISPERDAL PO SCH ×2 (08:36→20:17)
[2018-05-30] MEDS: ZESTRIL PO SCH (08:36)
[2018-05-30] MEDS: NAMENDA PO SCH ×2 (08:36→20:17)
[2018-05-30] MEDS: ASPIRIN PO SCH (08:36)
--- NOTE | 2018-05-30 09:53 | NUR ---
TELEMED PT SPOKE WITH DR CARMICHAEL LUGGAGE MAKER. PT IS VERY FLAT WHILE ANSWERING QUESTIONS, AND WAS ONLY ABLE TO ANSWER A FEW QUESTIONS APPROPRIATELY. NO NEW ORDERS RECEIVED AT THIS TIME.
--- NOTE | 2018-05-30 09:55 | PRM.PN ---
Mood: FAIR, DENIES DEPRESSIVE SYMPTOMS. Sleep: SLEPT 9 HOURS Appetite: GOOD Suidical thoughts: DENIES Homicidal thoughts: DENIES Recent stressors: COGNITIVE DECLINE Family support: GOOD Aggressive Behavior: NONE Ability to Perform ADL'sc: FAIR Psychotic sympstoms: DELUSIONAL ABOUT BEING ABANDONED Manic Symptoms: MOOD SWINGS Living situation: [facility] Illicit Drug usec: NONE Alcoholo use: NONE Tobacco use: NONE Family,PT,Surgical,&Current HX: (1) Dementia (2) Delusional disorder Anxity Symptoms: ELEVATED Anger/Irritablility: LABILE Muscle Strength & Tone: WNL Gait & Station: WNL Appearance: Well groomed/hygience, Casual attire, Normal weight, Appears age stated Attitude & Behaviour: Poor eye contact Mood & Affect: Flat, Depressed Orientation: Disoriented to place, Disoriented to time, Disoriented to situation Attention/Concentration: Poor attention, Poor concentration Speech: Impaired Judgement/Insight: Poor judgement, Poor insight Thought Process: Loose Language: Jamaican Thought content/Abnormal/Psych: Delusions Fund of Knowledge: Other Associations: KRYTSA Memory (recent and remote): Recent memory repaired, Remote memory repaired Constitutional: None Neurological: None Psychiatric: Crying [place] I: DEMENTIA WITH BEHAVIORAL DISTURBANCES [place] II: DEFERRED [place] III: SEE PMH/MEDICAL CHART [place] IV: COGNITIVE DECLINE [place] V: 30 Assessment/Plan Assessment/Plan Patient History: Patient reports no known family medical history. Plan Vital Signs Date Time Temp Pulse Resp B/P (MAP) Pulse Ox O2 Delivery O2 Flow Rate FiO2 05/30/18 08:36 134/80 05/30/18 08:11 98.3 83 12 97 Room Air 98.3 Allergies Coded Allergies Type Severity Reaction Last Updated Verified No Known Allergies 09/28/17 No Current Medications Medications (Trade) Dose Ordered Sig/Lluvia PRN Reason Start Time Stop Time Status Last Admin Aspirin (Aspirin) 81 mg DAILY 05/29/18 09:00 06/28/18 08:59 05/30/18 08:36 Ciprofloxacin (Cipro) 500 mg BID 05/28/18 17:00 05/31/18 19:00 05/30/18 08:36 Clonidine (Catapres) 0.1 mg Q6 PRN HYPERTENSION 05/28/18 17:00 06/27/18 16:59 Donepezil HCl (Aricept Odt) 10 mg HS 2/3/19 21:00 06/27/18 20:59 05/29/18 20:15 Duloxetine HCl (Cymbalta) 120 mg HS 05/28/18 21:00 06/27/18 20:59 05/29/18 20:14 Haloperidol (Haldol) 2 mg Q6H PRN delusions 05/28/18 00:00 06/27/18 00:00 Haloperidol Lactate (Haldol) 2 mg Q6 PRN delusions 05/28/18 00:00 06/27/18 00:00 Lisinopril (Zestril) 20 mg DAILY 05/29/18 09:00 06/28/18 08:59 05/30/18 08:36 Lorazepam (Ativan) 0.5 mg Q6 PRN ANXIETY 05/28/18 00:00 06/27/18 00:00 Lorazepam (Ativan) 0.5 mg Q6 PRN ANXIETY 05/28/18 00:00 06/27/18 00:00 Miscellaneous Medication (Namenda) 10 mg BID 05/28/18 09:00 06/27/18 08:59 05/30/18 08:36 Risperidone (Risperdal) 0.5 mg DAILY 05/29/18 10:30 06/28/18 10:29 05/30/18 08:36 Risperidone (Risperdal) 1 mg HS 05/28/18 21:00 06/27/18 20:59 05/29/18 20:15 Intake and Output 05/30/18 07:01 Intake Total 1248 ml Balance 1248 ml Intake Oral 1248 ml # Voids 3 THE PATIENT WAS SEEN BY JUJU CARMICHAEL VIA TELEMEDICINE EQUIPMENT (SUPPORTED BY [facility]) ALONG WITH THE TREATMENT TEAM. SHE DENIES DEPRESSIVE AND ANXIOUS SYMPTOMS. SHE REPORTS HAVING A GOOD APPETITE. SHE DENIES SI/HI/AV/VH. SHE IS TEARFUL BUT DENIES BEING SAD. SHE REPORTS THAT SHE IS TOLERATING HER MEDICATIONS AND DOES NOT APPEAR TO BE SEDATED. YESTERDAY RISPERDAL WAS STARTED IN THE MORNING TO ASSIST WITH MOOD INSTABILITY. SHE IS A VERY POOR HISTORIAN ND HAS DIFFICULTY WITH UNDERSTANDING SOME QUESTIONS OR WILL NOT ANSWER AT ALL. ASSESSMENT: DEMENTIA WITH BEHAVIORAL DISTURBANCES, MDD, RECURRENT, SEVERE PLAN: 1. CONTINUE BEHAVIORAL HEALTH MANAGEMENT. 2. CONTINUE CURRENT MEDICATIONS PRESCRIBED. STAFF AGREEABLE WITH PLAN 3. ALL PATIENT QUESTIONS ANSWERED RELATED TO MEDICATIONS, PLAN OF CARE, AND EXPECTED OUTCOMES. 4. SAFETY PLAN DISCUSSED. JUJU CARMICHAEL NP May 30, 2018 09:55
--- NOTE | 2018-05-30 16:05 | NUR ---
PIRP: P: ALTERED THOUGHT PROCESS, ALTERATION IN MOOD I: PROVIDE MEDICATIONS PRESCRIBED BY PHYSICIAN, PROVIDE NON SKID SOCKS, ALLOW PT EXPRESS FEELINGS AND CONCERNS, ENCOURAGE ATTENDANCE AND PARTICIPATION IN GROUP. PROVIDE QUIET ENVIRONMENT FOR SLEEP, PROVIDE REALITY ORIENTATION, PROVIDE Q 15 MINUTE SAFETY CHECKS. R: PT CONTINUES TO HAVE UNCONTROLLABLE CRYING ASKING FOR HER . PT IS UNABLE TO STATE NEED D/T EXPRESSIVE APHAGIA, AND IS DISORIENTED D/T DEMENTIA. NO BEHAVIORS HAVE BEEN PRESENT THIS SHIFT. NO NEW MED ORDERS RECEIVED DURING TELEMED. P: WILL CONTINUE WITH CURRENT PLAN OF CARE AND MEDICATIONS REGIMEN
[2018-05-30 19:56] VITALS: BP 131/62
[2018-05-30] MEDS: ARICEPT ODT PO SCH (20:15)
[2018-05-30] MEDS: CYMBALTA PO SCH (20:16)
--- NOTE | 2018-05-31 04:41 | NUR ---
-PIRP: P: Altered thought process; Altered mood I: Provide medications as ordered by physician. Encourage attendance and participation of all groups. Allow patient to voice feelings and concerns. Assist patient in differentiating between internal and external reality. Assist patient as needed for prevention of falls. Provide nonskid socks. R: The patient continues to remain isolated to self in room during slot shift supervisor. She denies any depression or suicidal ideation. She has had no episodes of tearfulness this shift. The patient was compliant with evening medications. She denies any needs. P: Continue current plan of care. Will continue to monitor patient and maintain safety
[2018-05-31 08:20] VITALS: BP 168/96
--- NOTE | 2018-05-31 08:33 | NUR ---
TELEMED PT SPOKE WITH DR RIVAS. WHEN ASKED PT TO STATE HER FIRST NAME PT STATES, " I'M UGLY." WHEN ASKED PT AGAIN TO STATE FIRST NAME PT STATES, "BI." PT STATES MOOD IS GOOD, AND THEN IS UNABLE TO ANSWER ANY FURTHER QUESTIONS. [facility] NOTIFIED AND DR RIVAS EXPLAINS THAT PT IS AT BASELINE. NURSE VERBALIZES UNDERSTANDING. NEW MEDICATION NUDEXTA ORDERED AND DX CHANGED TO DELUSIONAL DISORDER AND PSEUDOBULBAR AFFECT. PLAN TO DISCHARGE BACK TO [facility] Tuesday05/31/2018
--- NOTE | 2018-05-31 08:34 | PRM.PN ---
Mood: UP AND DOWN, DENIES FEELING DEPRESSED, SHE HAS CRYING SPELLS Sleep: SLEEPING WELL AT NIGHT, SLEPT 7.5 HOURS LAST NIGHT Appetite: NORMAL APPETITE Suidical thoughts: NONE REPORTED, SHE WAS THREATENING SUICIDE BEFORE ADMISSION Homicidal thoughts: NONE REPORTED Recent stressors: STRESS OF MENTAL ILLNESS Family support: SOME FAMILY SUPPORT, IS SUPPORTIVE Aggressive Behavior: NONE REPORTED Ability to Perform ADL'sc: NEEDS ASSISTANCE, NEEDS PROMPTING Psychotic sympstoms: DELUSIONAL THINKING, ODD THINKING RELATED TO DEMENTIA Manic Symptoms: NONE REPORTED Living situation: LIVES AT [facility] IN [place], [place] Illicit Drug usec: NONE REPORTED Alcoholo use: NONE REPORTED Tobacco use: NONE REPORTED Anxity Symptoms: MODERATE ANXIETY LEVEL Anger/Irritablility: LIMITED ANGER AND IRRITABILITY Muscle Strength & Tone: WNL Gait & Station: Ataxic Appearance: Well groomed/hygience, Casual attire, Normal weight, Appears age stated Attitude & Behaviour: Uncooperative, Poor eye contact Mood & Affect: Euthymic/appr/congruent, Iabile Orientation: Disoriented to person, Disoriented to place, Disoriented to time, Disoriented to situation Attention/Concentration: Poor attention, Poor concentration Speech: Impaired Judgement/Insight: Poor judgement, Poor insight Thought Process: Loose, Tangential Language: Citizen Of [place] Thought content/Abnormal/Psych: Delusions Fund of Knowledge: Other Associations: KRYSTA Memory (recent and remote): Recent memory repaired, Remote memory repaired Constitutional: None Neurological: None Psychiatric: Depressed, Anxious, Psychosis, Crying [place] I: MDD, NOBLE, DEMENTIA WITH BEHAVIOR PROBLEMS, DELUSIONAL DISORDER [place] II: DEFERRED [place] III: REFER TO PMH/MEDICAL CHART [place] IV: STRESS OF MENTAL ILLNESS [place] V: GAF=25 Assessment/Plan Assessment/Plan Assessment/Plan Vital Signs Date Time Temp Pulse Resp B/P (MAP) Pulse Ox O2 Delivery O2 Flow Rate FiO2 05/30/18 08:36 134/80 05/30/18 08:11 98.3 83 12 97 Room Air 98.3 Allergies Coded Allergies Type Severity Reaction Last Updated Verified No Known Allergies 09/28/17 No Current Medications Medications (Trade) Dose Ordered Sig/Lluvia PRN Reason Start Time Stop Time Status Last Admin Aspirin (Aspirin) 81 mg DAILY 05/29/18 09:00 06/28/18 08:59 05/30/18 08:36 Ciprofloxacin (Cipro) 500 mg BID 05/28/18 17:00 05/31/18 19:00 05/30/18 08:36 Clonidine (Catapres) 0.1 mg Q6 PRN HYPERTENSION 05/28/18 17:00 06/27/18 16:59 Donepezil HCl (Aricept Odt) 10 mg HS 05/28/18 21:00 06/27/18 20:59 05/29/18 20:15 Duloxetine HCl (Cymbalta) 120 mg HS 05/28/18 21:00 06/27/18 20:59 05/29/18 20:14 Haloperidol (Haldol) 2 mg Q6H PRN delusions 05/28/18 00:00 06/27/18 00:00 Haloperidol Lactate (Haldol) 2 mg Q6 PRN delusions 05/28/18 00:00 06/27/18 00:00 Lisinopril (Zestril) 20 mg DAILY 05/29/18 09:00 06/28/18 08:59 05/30/18 08:36 Lorazepam (Ativan) 0.5 mg Q6 PRN ANXIETY 05/28/18 00:00 06/27/18 00:00 Lorazepam (Ativan) 0.5 mg Q6 PRN ANXIETY 05/28/18 00:00 06/27/18 00:00 Miscellaneous Medication (Namenda) 10 mg BID 05/28/18 09:00 06/27/18 08:59 05/30/18 08:36 Risperidone (Risperdal) 0.5 mg DAILY 05/29/18 10:30 06/28/18 10:29 05/30/18 08:36 Risperidone (Risperdal) 1 mg HS 05/28/18 21:00 06/27/18 20:59 05/29/18 20:15 Intake and Output 05/30/18 07:01 Intake Total 1248 ml Balance 1248 ml Intake Oral 1248 ml # Voids 3 THE PATIENT WAS SEEN BY JORDEN RIVAS MD VIA TELEMEDICINE EQUIPMENT (SUPPORTED BY [facility]) ALONG WITH THE TREATMENT TEAM. THE PATIENT SLEPT 7.5 HOURS LAST NIGHT. THE PATIENT EATS WELL DURING THE DAY. THE PATIENT SKIPS DINNER. SHE HAS A HARD TIME ANSWERING QUESTIONS. THE PATIENT IS NOT ABLE TO DESCRIBE HER MOOD VERY WELL. THE PATIENT DOES NOT APPEAR TO BE ANXIOUS. THE PATIENT HAS CRYING SPELLS. SHE DENIES SI/HI/AV/VH. THE PATIENT HAS BEEN TOLERATING HER MEDICATIONS AND DOES NOT APPEAR TO BE OVER-SEDATED. THE PATIENT WAS DISORIENTED TO PLACE, TIME, AND SITUATION. ASSESSMENT: DEMENTIA WITH BEHAVIORAL DISTURBANCES, MDD, RECURRENT, SEVERE, GENERALIZED ANXIETY DISORDER, DELUSIONAL DISORDER, PSEUDOBULBAR AFFECT PLAN: 1. CONTINUE BEHAVIORAL HEALTH MANAGEMENT. 2. CONTINUE CURRENT MEDICATIONS PRESCRIBED. STAFF AGREEABLE WITH PLAN 3. ALL PATIENT QUESTIONS ANSWERED RELATED TO MEDICATIONS, PLAN OF CARE, AND EXPECTED OUTCOMES. 4. SAFETY PLAN DISCUSSED. Problems: (1) Dementia Status: Chronic ICD Code: F03.90 - Unspecified dementia without behavioral disturbance SNOMED: 38980193 (2) Delusional disorder Status: Acute ICD Code: F22 - Delusional disorders SNOMED: 03128568 (3) Suicidal ideations Status: Resolved ICD Code: R45.851 - Suicidal ideations SNOMED: 6997288 Patient History: Patient reports no known family medical history. Plan Vital Signs Date Time Temp Pulse Resp B/P (MAP) Pulse Ox O2 Delivery O2 Flow Rate FiO2 05/30/18 08:36 134/80 05/30/18 08:11 98.3 83 12 97 Room Air 98.3 Allergies Coded Allergies Type Severity Reaction Last Updated Verified No Known Allergies 09/28/17 No Current Medications Medications (Trade) Dose Ordered Sig/Lluvia PRN Reason Start Time Stop Time Status Last Admin Aspirin (Aspirin) 81 mg DAILY 05/29/18 09:00 06/28/18 08:59 05/30/18 08:36 Ciprofloxacin (Cipro) 500 mg BID 05/28/18 17:00 05/31/18 19:00 05/30/18 08:36 Clonidine (Catapres) 0.1 mg Q6 PRN HYPERTENSION 05/28/18 17:00 06/27/18 16:59 Donepezil HCl (Aricept Odt) 10 mg HS 05/28/18 21:00 06/27/18 20:59 05/29/18 20:15 Duloxetine HCl (Cymbalta) 120 mg HS 05/28/18 21:00 06/27/18 20:59 05/29/18 20:14 Haloperidol (Haldol) 2 mg Q6H PRN delusions 05/28/18 00:00 06/27/18 00:00 Haloperidol Lactate (Haldol) 2 mg Q6 PRN delusions 05/28/18 00:00 06/27/18 00:00 Lisinopril (Zestril) 20 mg DAILY 05/29/18 09:00 06/28/18 08:59 05/30/18 08:36 Lorazepam (Ativan) 0.5 mg Q6 PRN ANXIETY 05/28/18 00:00 06/27/18 00:00 Lorazepam (Ativan) 0.5 mg Q6 PRN ANXIETY 05/28/18 00:00 06/27/18 00:00 Miscellaneous Medication (Namenda) 10 mg BID 05/28/18 09:00 06/27/18 08:59 05/30/18 08:36 Risperidone (Risperdal) 0.5 mg DAILY 05/29/18 10:30 06/28/18 10:29 05/30/18 08:36 Risperidone (Risperdal) 1 mg HS 05/28/18 21:00 06/27/18 20:59 05/29/18 20:15 Intake and Output 05/30/18 07:01 Intake Total 1248 ml Balance 1248 ml Intake Oral 1248 ml # Voids 3 THE PATIENT WAS SEEN BY JUJU CARMICHAEL VIA TELEMEDICINE EQUIPMENT (SUPPORTED BY [facility]) ALONG WITH THE TREATMENT TEAM. SHE DENIES DEPRESSIVE AND ANXIOUS SYMPTOMS. SHE REPORTS HAVING A GOOD APPETITE. SHE DENIES SI/HI/AV/VH. SHE IS TEARFUL BUT DENIES BEING SAD. SHE REPORTS THAT SHE IS TOLERATING HER MEDICATIONS AND DOES NOT APPEAR TO BE SEDATED. YESTERDAY RISPERDAL WAS STARTED IN THE MORNING TO ASSIST WITH MOOD INSTABILITY. SHE IS A VERY POOR HISTORIAN ND HAS DIFFICULTY WITH UNDERSTANDING SOME QUESTIONS OR WILL NOT ANSWER AT ALL. ASSESSMENT: DEMENTIA WITH BEHAVIORAL DISTURBANCES, MDD, RECURRENT, SEVERE PLAN: 1. CONTINUE BEHAVIORAL HEALTH MANAGEMENT. 2. CONTINUE CURRENT MEDICATIONS PRESCRIBED. STAFF AGREEABLE WITH PLAN 3. ALL PATIENT QUESTIONS ANSWERED RELATED TO MEDICATIONS, PLAN OF CARE, AND EXPECTED OUTCOMES. 4. SAFETY PLAN DISCUSSED. JORDEN RIVAS IV, MD May 31, 2018 08:34
[2018-05-31] MEDS: NAMENDA PO SCH ×2 (08:36→20:45)
[2018-05-31] MEDS: CIPRO PO SCH (08:36)
[2018-05-31] MEDS: ZESTRIL PO SCH (09:00)
[2018-05-31] MEDS: RISPERDAL PO SCH ×2 (09:00→20:45)
[2018-05-31] MEDS: ASPIRIN PO SCH (09:00)
[2018-05-31] MEDS: NON-FORMULARY MEDICATION 1 EA EA PO SCH (12:00)
--- NOTE | 2018-05-31 12:58 | NUR ---
Co-Signature For [place] Assessment I, JOSE Allen am co-signing Music Therapy Activities Assessment with completion of this attached note. Signed: 05/31/18 at 1259 by JOSE Allen OT Addendum: 05/31/18 at 1259 by JOSE Allen OT Amended: Links added.
--- NOTE | 2018-05-31 16:27 | NUR ---
PIRP: P: ALTERED THOUGHT PROCESS, ALTERATION IN MOOD I: PROVIDE MEDICATIONS PRESCRIBED BY PHYSICIAN, PROVIDE NON SKID SOCKS, ALLOW PT EXPRESS FEELINGS AND CONCERNS, ENCOURAGE ATTENDANCE AND PARTICIPATION IN GROUP. PROVIDE QUIET ENVIRONMENT FOR SLEEP, PROVIDE REALITY ORIENTATION, PROVIDE Q 15 MINUTE SAFETY CHECKS. R: PT CONTINUES TO BE TEARFUL, BUT NO UNCONTROLLABLE CRYING. NEW ORDER HAS BEEN RECEIVED FOR NUDEXTA, WILL START THIS MEDICATION ON 06/01/2018. NO BEHAVIORS HAVE BEEN NOTE. WILL CONTINUE TO HELP PT WITH ADL'S AND THOUGHT PROCESS. P: WILL CONTINUE WITH CURRENT PLAN OF CARE AND MEDICATIONS REGIMEN
[2018-05-31] MEDS: ATIVAN PO PRN (17:42)
[2018-05-31 20:00] VITALS: BP 121/79
[2018-05-31] MEDS: ARICEPT ODT PO SCH (20:45)
[2018-05-31] MEDS: CYMBALTA PO SCH (20:45)
--- NOTE | 2018-06-01 04:25 | NUR ---
PIRP- P- ALTERED THOUGHT PROCESS AND ALTERATION IN MOOD I- PROVIDE MEDICATION ORDERED,PROVIDE SAFE AND SUPPORTIVE ENVIRONMENT AND Q 15 MIN. MONITORING R- PT. ORIENTED TO NAME NOT MONTH OR YEAR. PT. WAS SITTING IN THE DAY ROOM CRYING FOLLOWING SHIFT REPORT. PT. STATED SHE WANTED TO BE WITH HER . TOOK MEDICATION ORDERED. ATTENDED GROUP BUT DID NOT PARTICIPATE IN ACTIVITY. PT. WAS ASSISTED WITH HS CARE AND TO BED. SHE IS RESTING IN BED WITH EYES CLOSED AT THIS TIME. P- WILL CONTINUE WITH CURRENT [place]. PLAN.
[2018-06-01 08:59] VITALS: BP 148/84
[2018-06-01] MEDS: NON-FORMULARY MEDICATION 1 EA EA PO SCH (09:00)
[2018-06-01] MEDS: RISPERDAL PO SCH ×2 (09:02→20:06)
[2018-06-01] MEDS: ZESTRIL PO SCH (09:02)
[2018-06-01] MEDS: ASPIRIN PO SCH (09:03)
[2018-06-01] MEDS: NAMENDA PO SCH ×2 (09:03→20:06)
--- NOTE | 2018-06-01 10:09 | PRM.PN ---
Mood: FLAT Sleep: SLEPT 8.5 HOURS Appetite: GOOD Suidical thoughts: DENIES Homicidal thoughts: DENIES Recent stressors: COGNITIVE DECLINE Family support: GOOD Aggressive Behavior: NONE NOTED Ability to Perform ADL'sc: FAIR Psychotic sympstoms: DELUSIONAL THINKING Manic Symptoms: MOOD INSTABILITY Living situation: [facility] Illicit Drug usec: NONE Alcoholo use: NONE Tobacco use: NONE Family,PT,Surgical,&Current HX: (1) Delusional disorder (2) Dementia Anxity Symptoms: ANXOUS ABOUT SEEING FAMILY Anger/Irritablility: MILD Muscle Strength & Tone: WNL Gait & Station: WNL Appearance: Well groomed/hygience, Casual attire, Normal weight, Appears age stated Attitude & Behaviour: Cooperative/Pleasant Mood & Affect: Flat Orientation: Disoriented to place, Disoriented to time, Disoriented to situation Attention/Concentration: Poor attention, Poor concentration Speech: Impaired (DELAYED) Judgement/Insight: Poor judgement, Poor insight Thought Process: Loose Language: Irish Thought content/Abnormal/Psych: Delusions Fund of Knowledge: Other (IMPAIRED DUE TO MEMORY IMPAIRMENT) Associations: KRYSTA Memory (recent and remote): Recent memory repaired, Remote memory repaired Constitutional: None Neurological: None Psychiatric: Psychosis, Crying [place] I: PSEUDOBULBAR AFFECT DISORDER WITH DELUSIONAL DISORDER [place] II: DEFERRED [place] III: SEE MEDICAL CHART/PMH [place] IV: COGNITIVE DECLINE [place] V: 30 Assessment/Plan Assessment/Plan Assessment/Plan Patient History: Patient reports no known family medical history. Plan Vital Signs Date Time Temp Pulse Resp B/P (MAP) Pulse Ox O2 Delivery O2 Flow Rate FiO2 06/01/18 09:02 148/84 06/01/18 08:59 97.5 76 16 98 Room Air 97.5 Allergies Coded Allergies Type Severity Reaction Last Updated Verified No Known Allergies 09/28/17 No Current Medications Medications (Trade) Dose Ordered Sig/Lluvia PRN Reason Start Time Stop Time Status Last Admin Non-Formulary Medication 1 ea BID 06/07/18 09:00 07/07/18 08:59 Non-Formulary Medication 1 ea DAILY 05/31/18 12:00 06/06/18 09:01 Risperidone (Risperdal) 0.5 mg DAILY 05/29/18 10:30 06/28/18 10:29 06/01/18 09:02 Intake and Output 06/01/18 07:01 Intake Total 2244 ml Balance 2244 ml Intake Oral 2244 ml # Voids 6 THE PATIENT WAS SEEN BY JUJU CARMICHAEL VIA TELEMEDICINE EQUIPMENT (SUPPORTED BY [facility]) ALONG WITH THE TREATMENT TEAM. SHE IS SLEEPING WELL. NUEDEXTA WAS STARTED YESTERDAY, SHE HAS NOT RECEIVED IT YET. SHE REPORTS SLEEPING WELL LAST NIGHT. SHE HAS A GOOD APPETITE. WHEN ASKED ABOUT MOOD SHE TALKED ABOUT HER MOTHER. SHE THEN LEFT IN THE MIDDLE OF HER INTERVIEW. ASSESSMENT: PSEUDOBULBAR AFFECT AND DELUSIONAL DISORDER PLAN: 1. CONTINUE BEHAVIORAL HEALTH MANAGEMENT. 2. CONTINUE CURRENT MEDICATIONS PRESCRIBED. STAFF AGREEABLE WITH PLAN 3. ALL PATIENT QUESTIONS ANSWERED RELATED TO MEDICATIONS, PLAN OF CARE, AND EXPECTED OUTCOMES. 4. SAFETY PLAN DISCUSSED. JUJU CARMICHAEL NP Jun 01, 2018 10:09
--- NOTE | 2018-06-01 10:10 | NUR ---
TELEMED PT SEEN BY DR CARMICHAEL. NO NEW ORDERS RECEIVED AT THIS TIME. PLAN TO DISCHARGE Tuesday06/02/18
[2018-06-01 13:16] VITALS: BP 129/76
[2018-06-01] MEDS: ATIVAN PO PRN (15:00)
--- NOTE | 2018-06-01 15:00 | NUR ---
BEHAVIORS UNCONTROLLABLE CRYING NOTED BY PT. ATIVAN ADMINISTERED PER PRN ORDER. NO S/S OF DISTRESS NOTED. PT REMAINS IN DAY ROOM WITH NURSING STAFF.
--- NOTE | 2018-06-01 15:30 | NUR ---
REASSESSMENT PT LYING IN BED EYES CLOSED RR EVEN AND NON LABORED NO S/S OF DISTRESS NOTED.
--- NOTE | 2018-06-01 17:02 | NUR ---
PIRP: P: ALTERED THOUGHT PROCESS, ALTERATION IN MOOD I: PROVIDE MEDICATIONS PRESCRIBED BY PHYSICIAN, PROVIDE NON SKID SOCKS, ALLOW PT EXPRESS FEELINGS AND CONCERNS, ENCOURAGE ATTENDANCE AND PARTICIPATION IN GROUP. PROVIDE QUIET ENVIRONMENT FOR SLEEP, PROVIDE REALITY ORIENTATION, PROVIDE Q 15 MINUTE SAFETY CHECKS. R: PT CONTINUES TO CRY EXCESSIVELY DURING THE DAY. THIS HAS BEEN DETERMINED TO BE PT BASELINE. PT DID RECEIVE A PRN ATIVAN FOR SEVERE ANXIETY, NO COMBATIVE BEHAVIORS NOTED. PLAN IS TO DISCHARGE PT Tuesday06/02/18 TO [facility]. P: WILL CONTINUE WITH CURRENT PLAN OF CARE AND MEDICATIONS REGIMEN
[2018-06-01 19:40] VITALS: BP 145/91
[2018-06-01] MEDS: CYMBALTA PO SCH (20:06)
[2018-06-01] MEDS: ARICEPT ODT PO SCH (20:06)
[2018-06-02 08:11] VITALS: BP 147/89
[2018-06-02] MEDS: NON-FORMULARY MEDICATION 1 EA EA PO SCH (08:51)
[2018-06-02] MEDS: ASPIRIN PO SCH (08:53)
[2018-06-02] MEDS: ZESTRIL PO SCH (08:53)
[2018-06-02] MEDS: RISPERDAL PO SCH (08:53)
[2018-06-02] MEDS: NAMENDA PO SCH (08:53)
--- NOTE | 2018-06-02 09:40 | PRM.PN ---
Mood: LABILE, DENIES DEPRESSIVE MOODS. Sleep: SLEPT 8.5 HOURS Appetite: GOOD Suidical thoughts: DENIES Homicidal thoughts: DENIES Recent stressors: COGNITIVE DECLINE Family support: GOOD Aggressive Behavior: NONE NOTED Ability to Perform ADL'sc: FAIR Psychotic sympstoms: DELUSIONAL THINKING Manic Symptoms: NONE Living situation: [facility] Illicit Drug usec: NONE Alcoholo use: NONE Tobacco use: NONE Family,PT,Surgical,&Current HX: (1) Delusional disorder (2) Dementia Anxity Symptoms: NONE Anger/Irritablility: IRRITABILITY Muscle Strength & Tone: WNL Gait & Station: WNL Appearance: Well groomed/hygience, Casual attire, Normal weight, Appears age stated Attitude & Behaviour: Good eye contact Orientation: Disoriented to place, Disoriented to time, Disoriented to situation Attention/Concentration: Poor attention Speech: Reg rate/vol/rhyth/prosod Judgement/Insight: Fair judgement, Poor insight Thought Process: Linear/goal directed Language: Mongolian Thought content/Abnormal/Psych: Delusions Fund of Knowledge: Other (LIMITED) Associations: KRYSTA Memory (recent and remote): Recent memory repaired, Remote memory repaired Constitutional: None Neurological: None Psychiatric: Crying [place] I: PSEUDOBULBAR AFFECT, DELUSIONAL DISORDER [place] II: DEFERRED [place] III: SEE MEDICAL CHART/PMH [place] IV: COGNITIVE DECLINE [place] V: 35 Assessment/Plan Assessment/Plan Patient History: Patient reports no known family medical history. Plan Vital Signs Date Time Temp Pulse Resp B/P (MAP) Pulse Ox O2 Delivery O2 Flow Rate FiO2 06/02/18 08:53 147/89 06/02/18 08:11 97.7 85 14 96 Room Air 97.7 Allergies Coded Allergies Type Severity Reaction Last Updated Verified No Known Allergies 09/28/17 No Current Medications Medications (Trade) Dose Ordered Sig/Lluvia PRN Reason Start Time Stop Time Status Last Admin Non-Formulary Medication 1 ea BID 06/07/18 09:00 07/07/18 08:59 Non-Formulary Medication 1 ea DAILY 05/31/18 12:00 06/06/18 09:01 Intake and Output 06/02/18 07:01 Intake Total 977 ml Balance 977 ml Intake Oral 977 ml THE PATIENT WAS SEEN BY JUJU CARMICHAEL VIA TELEMEDICINE EQUIPMENT (SUPPORTED BY [facility]) ALONG WITH THE TREATMENT TEAM. SHE CONTINUES TO BE FIXATED ON SEEING HER AND MOTHER. SHE CONTINUES TO BE VERY CONFUSED. SHE IS EATING AND SLEEPING WELL. SHE IS TOLERATING HER MEDICATIONS WELL. SHE HAS NOT MADE LI SUICIDAL COMMENTS. SHE IS A VERY POOR HISTORIAN AND TENDS TO ANSWER MOST QUESTIONS INAPPROPRIATELY. SHE REPORTS BEING HAPPY. SHE IS TOLERATING HER MEDICATIONS AND DOES NOT APPEAR SEDATED. SHE BECOMES TEARFUL WHEN TALKING ABOUT WANTING HER FRIENDS OR HER . ASSESSMENT: PSEUDOBULBAR AFFECT, DELUSIONAL DISORDER PLAN: 1. CONTINUE BEHAVIORAL HEALTH MANAGEMENT. PLAN FOR DISCHARGE AFTER FACILITY IS NOTIFIED AND ACCEPT PATIENT. 2. CONTINUE CURRENT MEDICATIONS PRESCRIBED. STAFF AGREEABLE WITH PLAN 3. ALL PATIENT QUESTIONS ANSWERED RELATED TO MEDICATIONS, PLAN OF CARE, AND EXPECTED OUTCOMES. 4. SAFETY PLAN DISCUSSED. JUJU CARMICHAEL NP Jun 02, 2018 09:40
--- NOTE | 2018-06-02 09:44 | NUR ---
TELEMED PT WAS SEEN BY Darwin CARMICHAEL, JENNIE, FIRMWARE SOFTWARE VERIFICATION ENGINEER. NO NEW ORDERS RECEIVED @ THIS TIME. PLANS FOR PT TO DISCHARGE ONCE FACILITY HAS RE-EVALUATED AND ACCEPTED PT. PLANS FOR PT TO START NUEDEXTA ONCE BACK @ [facility].
--- NOTE | 2018-06-02 11:53 | NUR ---
[facility] SPOKE TO TUNG RIVERA AND NOTIFIED OF PLANS FOR PT TO DISCHARGE AND BEGIN NUEDEXTA ONCE BACK @ FACILITY WHEN MEDICATION IS AVAILABLE. REPORTS THEY ARE WILLING TO ACCEPT PT BACK LONG PT IS NOT PRESENTING SUICIDAL IDEATION.
[2018-06-02] MEDS ORDERED: RISP1TAB45 PO ×3 (14:54→15:16)
[2018-06-02] MEDS ORDERED: DONE10TA57 PO (14:55)
[2018-06-02] MEDS ORDERED: DULO60CA7 PO (14:55)
[2018-06-02] MEDS ORDERED: LISI-410 PO (14:56)
[2018-06-02] MEDS ORDERED: LISI10TA2 PO (15:16)
[2018-06-02] MEDS ORDERED: ASPI-667 PO (15:16)
[2018-06-02] MEDS ORDERED: RISP0.2518 PO (15:16)
[2018-06-02] MEDS ORDERED: Non-Formulary Medication PO ×2 (15:24)
[2018-06-02] MEDS ORDERED: DULO30CA2 PO (15:24)
[2018-06-02] MEDS ORDERED: CLON0.3T4 PO (15:24)
--- NOTE | 2018-06-02 15:28 | NUR ---
DISCHARGE DISCHARGE AND FOLLOW UP INFO PROVIDED TO PT. PT IS UNABLE TO COMPREHEND D/T COGNITION, WAS PROVIDED WITH VERBAL AND HANDOUT INFORMATION REGARDING PRESCRIPTIONS, DEPRESSION, SUICIDAL IDEATION, AND HALLUCINATIONS AND DELUSIONS. QUESTIONS AND CONCERNS ANSWERED. PT INFORMED OF NEED TO FOLLOW UP WITH DR. ROJAS FOR PSYCHIATRY.
[2018-06-02 15:34] VITALS: BP 147/89
--- NOTE | 2018-06-02 15:34 | NUR ---
OFF UNIT PT TRANSPORTED OFF UNIT VIA WHEELCHAIR BY Ray MCFADDEN LVN AND MADI COREA FROM [facility]. NO DISTRESS NOTED.
--- NOTE | 2018-06-02 23:05 | DSH ---
DATE OF DISCHARGE: 06/02/2018 HOSPITAL COURSE: The patient is a 68-year-old female who is an involuntary admission to the Behavior[facility] Health Unit of [facility] due to suicidal ideation. The patient lives at the [facility] and was threatening to hurt herself. She does have severe dementia. She was disoriented to place, time, and situation. She is normally able to state her first name, but not her last name. The patient did not show any behavior problems while on the unit. She was stabilized on the following psychotropic medications: Aricept 10 mg p.o. at bedtime, Cymbalta 120 mg p.o. at bedtime, Namenda 10 mg p.o. b.i.d., Risperdal 0.5 mg p.o. daily and 1 mg p.o. at bedtime. It was also recommended that she start Nuedexta for pseudobulbar affect. She should take Nuedexta 1 pill daily for the first week; then, she will take 1 pill twice a day; the dose is 20 mg/10 mg capsule. The patient does have uncontrollable crying spells at times, which is baseline for her. She denies feeling depressed. She has a stable anxiety level. She denies auditory or visual hallucinations. She has a normal appetite. She is sleeping well at night. She was taking all of her medications. She denied suicidal or homicidal ideation. She voiced no concerns. DISCHARGE DIAGNOSES: Delusional disorder; pseudobulbar affect; generalized anxiety disorder; psychosis; dementia with behavior disturbance. DISCHARGE PLAN: 1. The patient is being discharged in stable condition to the [facility]. The patient will follow up with Dr. Lei at that facility. 2. The patient is to see the general medical doctor for general medical health issues. 3. Continue the above psychotropic medications. Once again, the patient is recommended she take Nuedexta 1 capsule daily for 7 weeks and then 1 capsule twice a day thereafter for pseudobulbar affect. The patient does have uncontrollable crying spells that have been her baseline for a long time. Nuedexta is the only FDA approved treatment for pseudobulbar affect. Paxton Fowler IV MD DR: /talya JOB# [id number]
[2018-06-07] MEDS ORDERED: NON-FORMULARY MEDICATION 1 EA EA PO SCH (09:00)
== END 2018-06-02 15:34 | DRG 885 ==
LOC: EEVIPCON 18:20 → ER 18:20 → GP 21:36 → EDPENDDISTM 06-02 15:34
PROVIDERS: ADMIT Psychiatry & Neurology Psychiatry; ATTEND Psychiatry & Neurology Psychiatry
DX: F33.3 Major depressive disorder, recurrent, severe with psychotic symptoms (principal); F02.81 Dementia in other diseases classified elsewhere, unspecified severity, with behavioral disturbance; N17.9 Acute kidney failure, unspecified; N39.0 Urinary tract infection, site not specified; R45.851 Suicidal ideations; F48.2 Pseudobulbar affect; G30.9 Alzheimer's disease, unspecified; R00.0 Tachycardia, unspecified; I73.9 Peripheral vascular disease, unspecified; F41.1 Generalized anxiety disorder; I10 Essential (primary) hypertension; I25.10 Atherosclerotic heart disease of native coronary artery without angina pectoris; M19.90 Unspecified osteoarthritis, unspecified site; Z90.49 Acquired absence of other specified parts of digestive tract
CPT/HCPCS: 36415; 71045; 80053; 80061; 80307; 81000; 82550; 82607; 83036; 83880; 84443; 84484; 85025; 85610; 85730; 87086; 93005; 97150; 97166; 99285; G0378; J8499

== ENCOUNTER 2019-04-21 20:35 | Inpatient (IN) | payer MEDICARE, MEDICAID ==
[~2019-04-21] VITALS: Ht 157.5 cm; Wt 77.1 kg
[~2019-04-21 20:35] MED LIST changes: +ASPI-667 PO; +CLON0.3T4 PO; +DONE10TA57 PO; +DULO30CA2 PO; +LISI-410 PO; +Non-Formulary Medication PO; +RISP1TAB45 PO
[2019-04-21] MEDS ORDERED: LIDOCAINE 1% VIAL ONE (21:17)
--- NOTE | 2019-04-21 21:57 | PCM.EKG ---
[facility] Test Date: 2019-04-21 Test Time: 21:54:03 Pat Name: BI WARD Department: Room: 212 Gender: F Power Grader Operator: FAMILIA : [id number] Requested By: LEANDRA CRUZ Order Number: [id number] Reading MD: Leandra CRUZ Measurements Intervals [place] Rate: 82 P: 68 [place]: 165 QRS: 74 QRSD: 74 T: 65 QT: 392 QTc: 458 Interpretive Statements Sinus rhythm Probable left atrial enlargement Anteroseptal infarct, age indeterminate Compared to ECG 05/27/2018 19:46:23 No significant changes Electronically Signed On 04-24-2019 1:08:49 ORTHOTICS PROSTHETICS TECHNICIAN by Leandra CRUZ Please click the below link to view image of tracing.
[2019-04-21 22:07] LABS: BASOPHIL % 0.5 % (0.0-0.2); EOSINOPHIL % 0.2 % (0.0-5.0); LYMPHOCYTES # 2.5 10^3/uL (1.0-4.8); LYMPHOCYTES % 30.4 % (24.0-44.0); MEAN CORP HGB 29.7 pg (26-34); MONOCYTES # 0.6 10^3/uL (0.3-0.8); MONOCYTES % 7.1 % (5.0-12.0); NEUTROPHIL # 5.1 10^3/uL (1.8-7.7); NEUTROPHILS % 61.3 % (41.0-85.0); RED CELL DISTRIBUTION WIDTH 14.1 % (11.5-14.5)
[2019-04-21] MEDS ORDERED: RISP1TAB45 PO (22:12)
[2019-04-21] MEDS ORDERED: [UNRECOGNIZED DRUG - CODE] PO (22:16)
[2019-04-21 22:21] VITALS: BP 158/90
[2019-04-21 22:26] LABS: CALCIUM 9.8 mg/dL (8.4-10.5); CARBON DIOXIDE 25.7 mmol/L (20.0-32)
--- NOTE | 2019-04-21 23:28 | NUR ---
STRAIGHT CATHETER PATIENT STRAIGHT CATHETERIZED USING STERILE TECHNIQUE WITH NO COMPLICATIONS D/T INCONTINENCE PER EDP. MATTHEW CARE PROVIDED
[2019-04-21 23:31] LABS: APPEARANCE,URINE CLEAR (CLEAR); BILIRUBIN,URINE NEGATIVE (NEGATIVE); UA COLOR YELLOW (YELLOW); UROBILINOGEN,URINE NORMAL (NEGATIVE)
--- NOTE | 2019-04-22 00:06 | NUR ---
REPORT REPORT GIVEN TO [facility]LE[facility] ON [facility]
[2019-04-22 00:30] VITALS: BP 109/75
--- NOTE | 2019-04-22 00:34 | ER.PDOC ---
General Chief Complaint: Medical Clearance Stated Complaint: MED CLEARANCE Time seen by MD: 23:30 Source: residential records Exam Limitations: clinical condition History of Present Illness Initial Comments [facility] the [facility]. Severity: moderate Associated Symptoms: Agitated, Paranoid Allergies: Coded Allergies: No Known Allergies (Unverified , 09/28/17) Home Meds Active Scripts Duloxetine Hcl (CYMBALTA) 30 Mg Capsule.dr, 120 MG PO HS for 30 Days Prov:JORDEN RIVAS IV, MD 06/02/18 Reported Medications Clonidine HCl (Clonidine HCl ER) 0.1 Mg Tab.er.12h, 0.1 MG PO PRN PRN for HYPERTENSION, TAB 04/21/19 Risperidone (RISPERDAL) 1 Mg Tablet, 1.5 MG PO HS, TAB 04/21/19 Donepezil Hcl (ARICEPT) 10 Mg Tablet, 1 TAB PO HS, #30 TAB 1 Refill 06/02/18 Memantine Hcl (NAMENDA) 10 Mg Tablet, 1 TAB PO BID, #180 TAB 1 Refill 09/28/17 Discontinued Reported Medications Risperidone (RISPERDAL) 1 Mg Tablet, 1 TAB PO HS, #30 TAB 1 Refill 06/02/18 Lisinopril (LISINOPRIL) 20 Mg Tablet, 1 TAB PO DAILY for HTN, #90 TAB 1 Refill 06/02/18 Discontinued Scripts [Non-Formulary Medication] 1 EA EA No Conflict Check, 1 EA PO BID Prov:JORDEN RIVAS IV, MD 06/02/18 [Non-Formulary Medication] 1 EA EA No Conflict Check, 1 EA PO DAILY Prov:JORDEN RIVAS IV, MD 06/02/18 Clonidine Hcl (CATAPRES) 0.3 Mg Tablet, 0.1 MG PO Q6 PRN for HYPERTENSION for 30 Days, TABLET Prov:JORDEN RIVAS IV, MD 06/02/18 Risperidone (RISPERDAL) 1 Mg Tablet, 1 MG PO HS for 30 Days, TABLET Prov:JORDEN RIVAS IV, MD 06/02/18 Risperidone (RISPERDAL) 0.25 Mg Tablet, 0.5 MG PO DAILY for 30 Days, TABLET Prov:JORDEN RIVAS IV, MD 06/02/18 Aspirin (ASPIRIN) 81 Mg Tab.chew, 81 MG PO DAILY for 30 Days, TAB.CHEW Prov:JORDEN RIVAS IV, MD 06/02/18 Lisinopril (LISINOPRIL) 10 Mg Tablet, 20 MG PO DAILY for 30 Days, TABLET Prov:RIVASJORDEN IV, MD 06/02/18 Past Medical History Surgical History: cholecystectomy Social History Alcohol Use: none Drug Use: none Review of Systems Constitutional: no symptoms reported Respiratory: no symptoms reported Cardiovascular: no symptoms reported Gastrointestinal: no symptoms reported Genitourinary: no symptoms reported Psychiatric/Neurological: see HPI All Other Systems: Reviewed and Negative Physical Exam General Appearance: No acute distress, Alert Neck: Non-Tender, Full Range of Motion, Supple, Normal Inspection Respiratory: chest non-tender, lungs clear, normal breath sounds, no respiratory distress, no accessory muscle use Cardiovascular: Normal Peripheral Pulses, Regular Rate, Rhythm, No Edema, No Gallop, No JVD, No Murmur Gastrointestinal: Normal Bowel Sounds, No Organomegaly, No Pulsatile Mass, Non Tender, Soft Extremities: Non-Tender, Normal Range of Motion, No Evidence of Trauma, No Edema Neurological/Psychiatric: Alert, Calm, grey [place] man II-XII NML as Tested, Oriented x 3, Depressed Affect Appearance/Memory/Insight: Appropriate Appearance Behavior/Eye Contact/Speech: Cooperative Thoughts/Hallucinations: Delusions Results/Orders Results/Orders Orders - LEANDRA CRUZ MD Cbc With Auto Diff (04/21/19 21:41) Comprehensive Metabolic Panel (04/21/19 21:41) Urinalysis (04/21/19 21:41) Thyroid Stimulating Horm(Ml) (04/21/19 21:41) Drug Screen Medical(Ml) (04/21/19 21:41) RPR (04/21/19 21:41) Ekg-Routine (04/21/19 21:41) Troponin I (04/21/19 21:55) Creatine Kinase (04/21/19 21:55) Creatine Kinase Mb (04/21/19 21:55) Probnp B-Type [place] (04/21/19 21:55) Vital Signs Date Time Temp Pulse Resp B/P (MAP) Pulse Ox O2 Delivery O2 Flow Rate FiO2 04/21/19 22:21 97.7 84 19 04/21/19 22:21 97.7 84 19 97 04/21/19 22:21 97.7 84 19 158/90 (112) 97 Room Air Laboratory Tests Test 04/21/19 21:45 04/21/19 23:15 White Blood Count 8.3 10^3/uL (4.5-11.0) Red Blood Count 4.89 10^6/uL (4.00-5.20) Hemoglobin 14.5 g/dL (12.0-15.0) Hematocrit 42.8 % (36.0-46.0) Mean Corpuscular Volume 87.5 fL (78-100) Mean Corpuscular Hemoglobin 29.7 pg (26-34) Mean Corpuscular Hemoglobin Concent 33.9 g/dL (33-37) Red Cell Distribution Width 14.1 % (11.5-14.5) Platelet Count 243 10^3/uL (150-400) Mean Platelet Volume 9.2 fL (7.8-11.0) Neutrophils (%) (Auto) 61.3 % (41.0-85.0) Lymphocytes (%) (Auto) 30.4 % (24.0-44.0) Monocytes (%) (Auto) 7.1 % (5.0-12.0) Neutrophils # (Auto) 5.1 10^3/uL (1.8-7.7) Lymphocytes # (Auto) 2.5 10^3/uL (1.0-4.8) Monocytes # (Auto) 0.6 10^3/uL (0.3-0.8) Absolute Immature Granulocyte (auto 0.04 10^3 u/L (0-2) Absolute Eosinophils (auto) 0.0 10^3/uL (0.0-0.2) Immature Granulocytes % 0.50 % (0.00-0.50) Eosinophils % 0.2 % (0.0-5.0) Basophils % 0.5 % (0.0-0.2) H Basophils # 0.0 10^3/uL (0.0-0.1) Sodium Level 140 mmol/L (132-145) Potassium Level 4.2 mmol/L (3.6-5.2) Chloride Level 105.0 mmol/L (96-109) Carbon Dioxide Level 25.7 mmol/L (20.0-32) Anion Gap 13.5 Blood Urea Nitrogen 28 mg/dL (7-18) H Creatinine 1.44 mg/dL (0.59-1.40) H Estimated GFR () 43.9 (>/=60) BUN/Creatinine Ratio 19.0 Glucose Level 90 mg/dL (70-110) Calcium Level 9.8 mg/dL (8.4-10.5) Total Bilirubin 0.3 mg/dL (0.2-1.0) Aspartate Amino Transferase (AST) 11 U/L (0-35) Alanine Aminotransferase (ALT) 17 U/L (12-78) Alkaline Phosphatase 114 U/L (50-136) Total Creatine Kinase 81 U/L (26-192) Creatine Kinase MB 2.0 ng/mL (0.5-3.6) Troponin I < 0.02 ng/mL (0.00-0.05) Pro-B-Type Natriuretic Peptide 242 pg/mL (0-125) H Total Protein 6.8 g/dL (6.4-8.2) Albumin 3.7 g/dL (3.4-5.0) Globulin 3.1 Thyroid Stimulating Hormone (TSH) 1.345 mIU/mL (0.358-3.740) Urine Collection Type VOID Urine Color YELLOW (YELLOW) Urine Appearance CLEAR (CLEAR) Urine Bilirubin NEGATIVE MG/DL (NEGATIVE) Urine Ketones NEGATIVE (NEGATIVE) Urine Specific [place] 1.025 (1.005-1.035) Urine pH 5 (5.0-6.0) Urine Protein NEGATIVE (NEGATIVE) Urine Urobilinogen NORMAL (NEGATIVE) Urine Nitrate NEGATIVE (NEGATIVE) Urine Leukocyte Esterase NEGATIVE (NEGATIVE) Urine Blood NEGATIVE (NEGATIVE) Urine Glucose NORMAL (NEGATIVE) Urine Opiates, Qualitative NEGATIVE ng/mL (CUT-OFF:300) Urine Methadone, Qualitative NEGATIVE ng/mL (CUT-OFF:300) Urine Amphetamine Qualitative NEGATIVE ng/mL (CUTOFF:1000) Urine Barbiturates, Qualitative NEGATIVE ng/mL (CUT-OFF:200) Urine Phencyclidine Screen NEGATIVE ng/mL (CUT-OFF:25) Urine MDMA (Ecstasy), Qualitative NEGATIVE ng/mL (CUT-OFF:300) Urine Benzodiazepines Screen NEGATIVE ng/mL (CUT-OFF:200) Urine Cocaine Qualitative NEGATIVE ng/mL (CUT-OFF:300) Ur Tetrahydrocannabinol (THC) Scrn NEGATIVE ng/mL (CUT-OFF:50) EKG/XRAY/CT/US EKG: NSR Departure Time of Disposition: 00:33 Disposition: 09 ADMITTED INPATIENT Impression: Primary Impression: Delusional disorder Condition: Stable Referrals: NATASHA ALLEN (PCP) PRIMARY CARE PROVIDER Comments Admitted to Dr. Porter, Spoke to Dr. Onofre who will consult. Duration or Time Spent with Pa: 60 mins NANCY,LEANDRA Garsia MD Apr 22, 2019 00:34
[2019-04-22] MEDS ORDERED: ARICEPT ODT PO ONE (02:00)
[2019-04-22] MEDS ORDERED: RISPERDAL PO ONE ×2 (02:00→21:00)
[2019-04-22] MEDS ORDERED: CYMBALTA PO ONE (02:00)
[2019-04-22] MEDS ORDERED: ARICEPT PO ONE ×2 (02:00→21:00)
[2019-04-22] MEDS ORDERED: ARICEPT ODT ONE (02:16)
[2019-04-22] MEDS: NAMENDA PO SCH ×3 (02:19→20:33)
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
[2019-04-22 07:18] VITALS: BP 152/95
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
--- NOTE | 2019-04-22 14:11 | NUR ---
OUTPUT Patient incontinent of stool and urine, wears adult briefs.
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
--- NOTE | 2019-04-22 18:28 | NUR ---
DR. CARO: NOTIFIED DR. CARO OF BULGING TISSUE IN VAGINA. PENDING ORDERS
[2019-04-22] MEDS: ARICEPT ODT PO SCH (20:33)
[2019-04-22] MEDS: RISPERDAL PO SCH (20:33)
[2019-04-22] MEDS: CYMBALTA PO SCH (20:33)
[2019-04-22] MEDS: DEPAKOTE SPRINKLE PO SCH (20:33)
[2019-04-22 20:37] VITALS: BP 122/60
[2019-04-22] MEDS ORDERED: CYMBALTA PO SCH (21:00)
--- NOTE | 2019-04-22 21:44 | PRM.PSY ---
PSYCHIATRIC EVAL PSYCHIATRIC EVAL Pt is seen and full assessment was dictated #[id number] SCOT TABOR MD Apr 22, 2019 21:44
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
[2019-04-23 08:10] VITALS: BP 124/77
[2019-04-23] MEDS ORDERED: CATAPRES PO PRN (09:00)
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
--- NOTE | 2019-04-23 09:58 | NUR ---
TELEMED PT WAS SEEN BY Thierno HUERTA NP VIA TELEMED. RECEIVED ORDERS FOR PRN ATIVAN, SEE EMR.
[2019-04-23] MEDS: DEPAKOTE SPRINKLE PO SCH ×2 (10:18→20:38)
[2019-04-23] MEDS: NAMENDA PO SCH ×2 (10:18→20:38)
[2019-04-23] MEDS ORDERED: ATIVAN PO PRN (10:30)
--- NOTE | 2019-04-23 16:15 | NUR ---
GMAS: PT UNABLE TO COGNITIVELY PARTICIPATE IN ASSESSMENT DUE TO COGNITIVE DECLINE.
--- NOTE | 2019-04-23 16:37 | NUR ---
MMSE: PT UNABLE TO COGNITIVELY PARTICIPATE IN ASSESSMENT. PT IS NOT ORIENTED AND UNABLE TO MAKE COMPLETE SENTENCES.
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
--- NOTE | 2019-04-23 17:53 | PSYCH ---
DATE OF SERVICE: 04/22/2019 IDENTIFYING INFORMATION: The patient is a 68-year-old female presented involuntarily into the inpatient psychiatric unit for evaluation and management of worsening of impulsivity, aggression as well as possible worsening of psychosis. CHIEF COMPLAINT: Concrete Rod Buster asked the patient multiple times to provide the reason for being admitted to the hospital. 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 The patient is a very poor historian and unable to obtain any information from the patient for being admitted into the hospital except stating "I don't know." The patient's chart reviewed and it is documented that the patient is a resident of [facility] and according to the facility the patient became increasingly agitated over the past couple of weeks and has been aggressive with other residents in the facility and physically aggressive with peers in the fci and admitted to the psychiatric facility under involuntary commitment for further evaluation and stabilization. The patient is unable to answer if she is hearing any voices or seeing things, unable to answer if she is having any suicidal or homicidal thoughts and at the time of interview, it is very difficult to assess if the patient has active suicidal or homicidal thoughts or active audiovisual hallucinations secondary to her severe cognitive decline. PAST PSYCHIATRIC HISTORY: Chart reviewed and according to the chart, the patient was psychiatrically hospitalized in the past for depression and psychosis as well as for suicidal ideations in the past, not sure if the patient attempted suicide in the past or not. CURRENT MEDICAL PROBLEMS: Hypertension, history of thoracic aortic aneurysm with status post repair, dementia. ALLERGIES: No known drug allergies reported or documented. CURRENT MEDICATIONS: Cymbalta 120 mg at bedtime, Aricept 10 mg at bedtime, lisinopril 10 mg daily, Namenda 10 mg twice a day, risperidone 1.5 mg at bedtime, clonidine 0.1 mg p.o. p.r.n. FAMILY HISTORY OF PSYCHIATRIC ILLNESS: Unable to obtain from the patient and nothing documented or reported. SOCIAL HISTORY: The patient is currently a resident of [facility] and has no history of substance use. Staff reported that she is and has children. MEDICAL REVIEW OF SYSTEMS: Negative at the time of interview except having struggling with speech. LABORATORY DATA: Labs reviewed with CBC within normal limits. CMP with increased BUN and creatinine, patient might possibly have CKD. Urine drug screen negative. Urinalysis negative for leukocyte esterase. Chest x-ray, no acute cardiopulmonary disease. MENTAL STATUS EXAMINATION: The patient's vitals reviewed with blood pressure 152/95, pulse ox 100% on room air, respiratory rate 20, pulse 82, temperature 98.3. The patient is ambulating with the help of wheelchair, not in acute physical distress, unable to describe her mood, but appears cooperative and pleasant. No psychomotor agitation noted, but noted somewhat psychomotor retardation based on observation by obtaining the information and level of her physical activity. The patient seems preoccupied and possibly responding to the internal stimuli, but unable to obtain information regarding robert delusions or hallucinations, unable to assess suicidal or homicidal ideations at the time of interview. Insight and judgment are impaired as the patient unable to understand that she is suffering from mental illness and importance of the treatment. Impulse control is poor and unpredictable as the patient presented with a physically aggressive behavior. On cognitive screening, the patient is alert, awake, intermittently oriented to person only, unable to tell the date of and unable to tell where the patient is and other whereabouts. Noted some language deficits as the patient has been having the perseverations and repetitions of what she has been saying like "you are a good girl" and repeating the same thing, seems having impaired recent and remote memory. Fund of knowledge and intelligence appears below average depending on information obtained during the interview and level of vocabulary. DIAGNOSES: 1. Unspecified psychosis. 2. Unspecified affective disorder. 3. 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 4. Hypertension. 5. Chronic kidney disease. PLAN: 1. Continue to stabilize her in the inpatient unit. 2. Continue close observation. 3. Encouraged her to attend group and other unit activities. 4. We will reduce Cymbalta to 60 mg daily and continue risperidone 1.5 mg at bedtime. We will start Depakote 125 mg twice a day to help with intermittent impulsivity and aggression. 5. Continue medical medications as per medical attending recommendations. 6. Continue Namenda and Aricept at current doses. 7. Prognosis guarded. 8. Discharge criteria should not be having any impulsive, aggressive behavior. ESTIMATED LENGTH OF STAY: 7-10 days. Cole Porter MD DR: MERCEDEZ/talya JOB# [id number]
[2019-04-23 19:14] VITALS: BP 116/69
[2019-04-23] MEDS: CYMBALTA PO SCH (20:36)
[2019-04-23] MEDS: RISPERDAL PO SCH (20:37)
[2019-04-23] MEDS: ARICEPT ODT PO SCH (20:39)
--- NOTE | 2019-04-24 06:07 | NUR ---
pirp- P- ALTERED THOUGHT PROCESS,DTO AND ALTERATION IN MOOD I- PROVIDE SAFE AND SUPPORTIVE ENVIRONMENT,PROVIDE MEDICATION ORDERED AND Q 15 MIN. MONITORING. R- PT. ORIENTED TO NAME NOT MONTH OR YEAR. SHE STATED SHE WAS SAD BUT WAS UNABLE TO RATE DEPRESSION. PT. WAS RESTLESS ,WANDERED IN HALLWAY AND REQUIRED FREQUENT REDIRECTING. STAFF PROVIDED STANDBY ASSIST MOST OF THE TIME. PT. WALKED TO THE DOOR OF THE UNIT AND REACHED FOR DOOR HANDLE ON SEVERAL OCCASIONS AND REQUIRED REDIRECTING. RAMBLING WITH LOOSE ASSOCIATION.. TOOK MEDICATION WITH PROMPTING. WAS ASSISTED WITH HS CARE AND TO BED AT HS. PT. RESTING WITH EYES CLOSED AT THIS TIME. P- WILL CONTINUE TO REDIRECT AND ASSIST PT. NEEDED.PROVIDE 1:1 INTERVENTION.
[2019-04-24] MEDS: NAMENDA PO SCH ×2 (10:45→20:35)
[2019-04-24] MEDS: DEPAKOTE SPRINKLE PO SCH ×2 (10:45→20:34)
[2019-04-24 11:56] VITALS: BP 124/89
--- NOTE | 2019-04-24 14:29 | NUR ---
[place] TEAM PT WAS SEEN BY DR. TABOR VIA TELEMED. RECEIVED ORDERS TO INCREASE SCHEDULED DEPAKOTE, SEE EMR.
--- NOTE | 2019-04-24 17:21 | NUR ---
PIRP P: ALTERATION IN MOOD, CONFUSION I: Q15 MIN MONITORING, REDIRECT WITH VERBALIZATION, GIVE CLEAR AND SIMPLE INSTRUCTIONS, RE-ORIENT TO SURROUNDINGS, REINFORCE UNIT RULES, PROVIDE 1:1 TO ENCOURAGE EXPRESSION OF FEELINGS, PROVIDE TASK-ORIENTED ACTIVITIES, ESTABLISH TOILETING SCHEDULE, MONITOR FOR CHANGES IN USUAL BEHAVIOR, GIVE MEDICATIONS ORDERED R: PT HAS BEEN RESTLESS THROUGHOUT SHIFT, EXHIBITS TEARFUL AND ANXIOUS AFFECT. IS ABLE TO FOLLOW SIMPLE COMMANDS, UNABLE TO ANSWER QUESTIONS APPROPRIATELY. HAS NOT EXHIBITED THREATENING OR COMBATIVE BEHAVIORS, BUT HAS BEEN INTRUSIVE AND REQUIRES 1:1 REDIRECTION @ TIMES. WANDERS CHAMBERLAIN FREQUENTLY, BUT HAS NOT BEEN ACTIVELY EXIT-SEEKING. HAS TAKEN MEDICATIONS ORDERED, AND HAS BEEN COOPERATIVE WITH ADLS. UNABLE TO PARTICIPATE IN GROUP ACTIVITIES D/T LEVEL OF COGNITIVE IMPAIRMENT. P: REDIRECT WITH VERBALIZATION, REDUCE EXTERNAL STIMULI, MAINTAIN CALM APPROACH
[2019-04-24] MEDS: CYMBALTA PO SCH (20:34)
[2019-04-24] MEDS: ARICEPT ODT PO SCH (20:34)
[2019-04-24] MEDS: RISPERDAL PO SCH (20:35)
[2019-04-24 21:17] VITALS: BP 132/81
--- NOTE | 2019-04-25 05:57 | NUR ---
PIRP- P- ALTERATION IN MOOD I- PROVIDE SAFE AND SUPPORTIVE ENVIRONMENT,PROVIDE MEDICATION ORDERED AND Q 15 MIN. MONITORING R- PT. CONFUSED,WANDERING IN HALLWAY, ATTEMPTS TO GO INTO PEERS' ROOMS, ATTEMPTS TO OPEN UNIT DOOR AND REQUIRES FREQUENT REDIRECTING. HAS LOOSE ASSOCIATION AND TALKS ABOUT THE BABIES BUT IT IS UNCLEAR WHAT SHE IS SAYING.RAMBLES. WAS ASSISTED WITH SHOWER. ARE SNACK. TOOK MEDICATION WITH PROMPTING. PT. RESTING IN BED WITH EYES CLOSED AT THIS TIME. SHE SLEEPS WITH HER HEAD AT THE FOOT OF THE BED. P- WILL CONTINUE TO REDIRECT NEEDED.
--- NOTE | 2019-04-25 07:18 | NUR ---
Report Assumed care of patient after report received from Franci Mcneil RN, at change of shift.
[2019-04-25 07:25] VITALS: BP 162/97
[2019-04-25] MEDS: DEPAKOTE SPRINKLE PO SCH ×2 (08:34→20:21)
[2019-04-25] MEDS: NAMENDA PO SCH ×2 (08:34→20:21)
--- NOTE | 2019-04-25 10:03 | PRM.PN ---
Mood: LABILE, REQUIRES CONSTANT REDIRECTION Sleep: SLEPT 8.75 HOURS Appetite: GOOD Suidical thoughts: DENIES Homicidal thoughts: DENIES Recent stressors: COGNITIVE DECLINE Family support: GOOD Aggressive Behavior: NONE NOTED Ability to Perform ADL'sc: ASSITANCE NEEDED Psychotic sympstoms: DELUSIONAL THINKING Manic Symptoms: NONE NOTED Living situation: [facility] Illicit Drug usec: NONE Alcoholo use: NONE Tobacco use: NONE Family,PT,Surgical,&Current HX: (1) Dementia (2) Delusional disorder Anxity Symptoms: HIGHLY ANXIOUS Anger/Irritablility: EASILY AGITATED DUE TO CONFUSION Muscle Strength & Tone: WNL Gait & Station: WNL Appearance: Normal weight, Appears age stated Attitude & Behaviour: Poor eye contact Mood & Affect: Iabile Orientation: Disoriented to place, Disoriented to time, Disoriented to situation Attention/Concentration: Poor attention, Poor concentration Speech: Reg rate/vol/rhyth/prosod Judgement/Insight: Poor judgement, Poor insight Thought Process: Loose Language: Belgian Thought content/Abnormal/Psych: Delusions Fund of Knowledge: Other (LIMITED) Associations: KRYSTA Memory (recent and remote): Recent memory repaired, Remote memory repaired [place] I: DEMENTIA, DELUISONAL DISORDER, ANXIETY [place] II: DEFERRED [place] III: SEE MEDICAL CHART [place] IV: COGNITIVE DECLINE [place] V: 30 Assessment/Plan Assessment/Plan Assessment/Plan Vital Signs Date Time Temp Pulse Resp B/P (MAP) Pulse Ox O2 Delivery O2 Flow Rate FiO2 04/25/19 07:25 97.9 83 18 162/97 (118) 96 Room Air Allergies Coded Allergies Type Severity Reaction Last Updated Verified No Known Allergies 09/28/17 No Intake and Output 04/25/19 07:00 Intake Total 1664 ml Output Total 1 ml Balance 1663 ml Intake Oral 1664 ml Output Urine Total 1 ml # Voids 2 # Bowel Movements 1 THE PATIENT WAS SEEN BY JUJU CARMICHAEL VIA TELEMEDICINE EQUIPMENT (SUPPORTED BY [facility]) ALONG WITH THE TREATMENT TEAM. SHE IS A POOR HISTORIAN. SHE REQUIRES CONSTANT REDIRECTION AND IS A HIGH ELOPEMENT RISK. SHE IS EATING AND SLEEPING WELL. PRN ATIVAN WAS ADDED AND THIS HELPS WITH HER ANXIETY. SHE IS TOLERATING HER MEDICATIONS WELL. ASSESSMENT:DEMENTIA, ANXIETY, DELUSIONAL DISORDER PLAN: 1. CONTINUE BEHAVIORAL HEALTH MANAGEMENT. 2. CONTINUE CURRENT MEDICATIONS PRESCRIBED. STAFF AGREEABLE WITH PLAN 3. ALL PATIENT QUESTIONS ANSWERED RELATED TO MEDICATIONS, PLAN OF CARE, AND EXPECTED OUTCOMES. 4. SAFETY PLAN DISCUSSED. Patient History: Patient reports no known family medical history. JUJU CARMICHAEL NP Apr 25, 2019 10:03
--- NOTE | 2019-04-25 17:25 | NUR ---
PIRP P: DEMENTIA WITH BEHAVIORAL DISTURBANCES; ALTERED THOUGHT PROCESS; DTO I: Provide safe and supportive environment; Give clear and simple instructions to patient; Provide reality orientation as needed; Provide medication as ordered; Explain need/purpose of medication; Provide 1:1 intervention allowing patient to express feelings/thoughts; Provide task oriented activities, Observe and report changes in usual behavior; Assess for depression, anxiety, SI/HI, symptoms of psychosis; Closely monitor Patient as per policy; Provide opportunity to meet with or be assessed by a psychiatric professional daily, Monitor for patient's ADL needs R: Patient has yellow slip proof socks on to facilitate safety when walking; Patient up to ambulate and wander the halls most of the day; Meals provided and assistance provided as needed; Adult brief checks for incontinence at least every 2 hours, Clothing changed when soiled, david care provided; Patient took all of her medications, Q 15 minute monitoring logged; short group activities included nail care, and walking with staff with assurances of love and support; Depression, anxiety, SI/HI, psychosis hard to assess secondary to advanced dementia, patient did not appear aggressive towards others today; Patient observed by Dr. Martines today via Telemed. P: DC planning for a safe discharge back to LTC facility; Care planning as per patient needs
[2019-04-25 19:40] VITALS: BP 117/75
[2019-04-25] MEDS: CYMBALTA PO SCH (20:21)
[2019-04-25] MEDS: ARICEPT ODT PO SCH (20:21)
[2019-04-25] MEDS: RISPERDAL PO SCH (20:21)
--- NOTE | 2019-04-26 06:09 | NUR ---
P.I.R.P. P. ALTERATION IN MOOD, DTO, CONFUSION I. PROVIDE SAFE SECURE ENVIRONMENT WITH EVERY 15 MINUTE CHECKS, PROVIDE GROUP AND ENCOURAGE PARTICIPATION, PROVIDE MEDICATIONS ORDERED BY MD. Pa PATIENT TOOK MEDS ORDERED, SAT IN WITH GROUP AND ATTEMPTED DOMINOS AND TIC TAC TOE, WAS RESTLESS AT TIMES WANDERING, EASILY RE DIRECTED. NO BEHAVIORAL ISSUES THIS SHIFT. PATIENT TEARFUL AT TIMES WHEN TALKING ABOUT HER FAMILY. P. CONTINUE CURRENT TREATMENT PLAN.
[2019-04-26 07:40] VITALS: BP 120/83
[2019-04-26] MEDS: NAMENDA PO SCH ×2 (09:53→20:16)
[2019-04-26] MEDS: DEPAKOTE SPRINKLE PO SCH ×2 (09:53→20:15)
--- NOTE | 2019-04-26 10:40 | PRM.PN ---
Mood: UNCHANGED, SOME TEARFULNESS NOTED Sleep: SLEPT 8.75 HOURS Appetite: GOOD WITH ASSISTANCE Suidical thoughts: UNABLE TO ASSESS Homicidal thoughts: UNABLE TO ASSESS Recent stressors: COGNITIVE DECLINE Family support: GOOD Aggressive Behavior: NONE NOTED Ability to Perform ADL'sc: ASSISTANCE NEEDED Psychotic sympstoms: NONE NOTED Manic Symptoms: NONE NOTED Living situation: [facility] Illicit Drug usec: NONE Alcoholo use: NONE Tobacco use: NONE Family,PT,Surgical,&Current HX: (1) Dementia (2) Delusional disorder Anxity Symptoms: MILD Anger/Irritablility: NONNE NOTED. Muscle Strength & Tone: WNL Gait & Station: WN Appearance: Well groomed/hygience, Casual attire, Normal weight, Appears age stated Attitude & Behaviour: Cooperative/Pleasant, Good eye contact Mood & Affect: Flat Orientation: Disoriented to place, Disoriented to time, Disoriented to situation Attention/Concentration: Poor attention, Poor concentration Speech: Impaired Judgement/Insight: Poor judgement, Poor insight Thought Process: Loose Language: Portuguese Thought content/Abnormal/Psych: Delusions Fund of Knowledge: Other (POOR) Associations: Other (UANBLE TO ASSESS) Memory (recent and remote): Recent memory repaired, Remote memory repaired Constitutional: None Neurological: None Psychiatric: Crying [place] I: DELUSIONAL DISORDER, DEMENTIA [place] II: DEFERRED [place] III: SEE MEDICAL CHART [place] IV: COGNITIVE DECLINE [place] V: 40 Assessment/Plan Assessment/Plan Assessment/Plan Vital Signs Date Time Temp Pulse Resp B/P (MAP) Pulse Ox O2 Delivery O2 Flow Rate FiO2 04/26/19 07:40 98.3 67 18 120/83 (95) 93 Room Air Allergies Coded Allergies Type Severity Reaction Last Updated Verified No Known Allergies 09/28/17 No Intake and Output 04/26/19 07:00 Intake Total 1372 ml Balance 1372 ml Intake Oral 1372 ml # Voids 4 THE PATIENT WAS SEEN BY JUJU CARMICHAEL VIA TELEMEDICINE EQUIPMENT (SUPPORTED BY [facility]) ALONG WITH THE TREATMENT TEAM. SHE IS SLEEPING WELL. SHE REQUIRES PROMPTING WHILE EATING. SHE IS TOLERATING HER MEDICATIONS WELL. SHE IS VARY POR HISTORIAN. AFFECT IS VERY FLAT. SHE HAS A BLANK STARE. SPEECH IS POOR. SHE IS UNABLE TO ANSWER ANY QUESTIONS WELL AT THIS TIME. ASSESSMENT: DEMENTIA, DELUSIONAL DISORDER PLAN: 1. CONTINUE BEHAVIORAL HEALTH MANAGEMENT. 2. CONTINUE CURRENT MEDICATIONS PRESCRIBED. STAFF AGREEABLE WITH PLAN 3. ALL PATIENT QUESTIONS ANSWERED RELATED TO MEDICATIONS, PLAN OF CARE, AND EXPECTED OUTCOMES. 4. SAFETY PLAN DISCUSSED. Patient History: Patient reports no known family medical history. JUJU CARMICHAEL NP Apr 26, 2019 10:40
--- NOTE | 2019-04-26 16:21 | NUR ---
PIRP: P: ALTERED THOUGHT PROCESS, ALTERED MOOD, DTO I: PROVIDE MEDICATIONS ORDERED BY PHYSICIAN. ENCOURAGE ATTENDANCE AND PARTICIPATION OF ALL GROUPS. ALLOW PATIENT TO VOICE FEELINGS AND CONCERNS. PROVIDE SAFE ENVIRONMENT. REORIENT NEEDED. R: PATIENT HAS TAKEN ALL MEDICATIONS ORDERED. SHE HAS NOT BEEN COMBATIVE OR AGGRESSIVE BUT HAS NOT BEEN ABLE TO EFFECTIVELY PARTICIPATE IN GROUPS. SHE WANDERS AND CHECKS DOORS AND REQUIRES TOTAL ASSIST WITH ADL'S. SHE EATS WELL IF SOMEONE PROMPTS HER OR FEEDS HER. SHE IS SLEEPING WELL. P: CONTINUE CURRENT PLAN OF CARE.
--- NOTE | 2019-04-26 19:00 | NUR ---
REPORT RECEIVED CARE OF PATIENT AFTER REPORT RECEIVED FROM LILLI CAMACHO R.N. PATIENT WANDERING IN HALLWAY, NO DISTRESS NOTED.
[2019-04-26] MEDS: CYMBALTA PO SCH (20:15)
[2019-04-26] MEDS: ARICEPT ODT PO SCH (20:15)
[2019-04-26] MEDS: RISPERDAL PO SCH (20:16)
[2019-04-26 20:28] VITALS: BP 129/64
--- NOTE | 2019-04-27 06:23 | NUR ---
P.I.R.P. P. ALTERED THOUGHT PROCESS I. PROVIDE SAFE ENVIRONMENT WITH EVERY 15 MINUTE CHECKS, PROVIDE MEDICATIONS ORDERED BY MD, PROVIDE TASK ORIENTED GROUP POSSIBLE FOR PATIENT PARTICIPATION AND ENCOURAGE GROUP ATTENDANCE. PROVIDE 1;1 INTERACTION TO ALLOW PATIENT TO EXPRESS FEELINGS OR CONCERNS POSSIBLE FOR PATIENT R. PATIENT COMPLIANT WITH MEDICATIONS, WANDERED IN AND OUT OF GROUP ACTIVITY, ATTEMPTED SOCIALIZING WITH OTHERS IN GROUP. NO AGGRESSION OR HARM TO SELF OR OTHERS NOTED THIS SHIFT. P. CONTINUE CURRENT TREATMENT PLAN
[2019-04-27 07:31] VITALS: BP 147/71
[2019-04-27] MEDS: NAMENDA PO SCH ×3 (10:38→20:32)
[2019-04-27] MEDS: DEPAKOTE SPRINKLE PO SCH ×3 (10:38→20:32)
--- NOTE | 2019-04-27 14:25 | NUR ---
TELEMED PT WAS SEEN BY Darwin CARMICHAEL, JENNIE, MEDICAL EQUIPMENT REPAIR TECHNICIAN. RECEIVED ORDERS FOR DEPAKOTE LEVEL ON 04/29/2019.
--- NOTE | 2019-04-27 14:43 | PRM.PN ---
Mood: DENIED BEING SAD Sleep: SLEPT 7.75 HOURS Appetite: GOOD- NEEDS PROMPTING OR NEEDS TO BE FED Suidical thoughts: DENIES Homicidal thoughts: DENIES Recent stressors: COGNITVE DECLINE Family support: POOR Aggressive Behavior: NONE NOTED Ability to Perform ADL'sc: ASSISTANCE NEEDED Psychotic sympstoms: NONE NOTED Manic Symptoms: NONE NOTED Living situation: [facility] Illicit Drug usec: NONE Alcoholo use: NONE Tobacco use: NONE Family,PT,Surgical,&Current HX: (1) Dementia (2) Delusional disorder Anxity Symptoms: DENIES ANXIOUS SYMPTOMS. Anger/Irritablility: NONE NOTED Muscle Strength & Tone: WNL Gait & Station: WNL Appearance: Normal weight, Appears age stated Attitude & Behaviour: Cooperative/Pleasant, Poor eye contact Mood & Affect: Flat Orientation: Disoriented to place, Disoriented to time, Disoriented to situation Attention/Concentration: Poor attention, Poor concentration Speech: Reg rate/vol/rhyth/prosod Judgement/Insight: Poor judgement, Poor insight Thought Process: Loose Language: Citizen Of [place] Thought content/Abnormal/Psych: None/normal Fund of Knowledge: Other (IMPAIRED DUE TO CONFUSION) Associations: KRYSTA Memory (recent and remote): Recent memory repaired, Remote memory repaired Constitutional: None Neurological: None Psychiatric: None [place] I: DELUSIONAL DISORDER, DEMENTIA [place] II: DEFERRED [place] III: SEE MEDICAL CHART [place] IV: COGNTIVE DECLINE [place] V: 40 Assessment/Plan Assessment/Plan Patient History: Patient reports no known family medical history. Plan Vital Signs Date Time Temp Pulse Resp B/P (MAP) Pulse Ox O2 Delivery O2 Flow Rate FiO2 04/27/19 07:31 97.6 71 19 147/71 (96) 98 Room Air Allergies Coded Allergies Type Severity Reaction Last Updated Verified No Known Allergies 09/28/17 No Intake and Output 04/27/19 07:00 Intake Total 1788 ml Output Total 3 ml Balance 1785 ml Intake Oral 1788 ml Output Urine Total 3 ml # Voids 1 Problems Medical Problems: (1) Delusional disorder Status: Acute ICD Codes: F22 - Delusional disorders SNOMED: [id number] Responsible Provider: JUJU CARMICHAEL NP Problem Recorded: May 29, 2018 09:57 Last Edited By: Nathan Garsia MBA, MD - ED on Apr 23, 2019 09:06 (2) Dementia Status: Chronic ICD Codes: F03.90 - Unspecified dementia without behavioral disturbance SNOMED: [id number] Responsible Provider: JUJU CARMICHAEL NP Problem Recorded: May 28, 2018 11:21 Last Edited By: Champ Fowler MD - Gp on Apr 23, 2019 09:06 THE PATIENT WAS SEEN BY JUJU CARMICHAEL VIA TELEMEDICINE EQUIPMENT (SUPPORTED BY [facility]) ALONG WITH THE TREATMENT TEAM. SHE IS A VERY POOR HISTORIAN. SHE WANDERS ON THE UNIT. APPETITE IS GOOD IF SHE IS FED. SHE IS TOLERATING HER MEDICATION. SHE HAS NOT REQUIRED ANY PRN MEDICATIONS. SHE REQUIRES REDIRECTION AND IS EASILY REDIRECTED. MOOD IS UNCHANGED OVERALL. SHE DOES NOT APPEAR SEDATED. ASSESSMENT: DELUSIONAL DISORDER, DEMENTIA PLAN: 1. CONTINUE BEHAVIORAL HEALTH MANAGEMENT. VPA LEVEL FOR 04/29/2019. 2. CONTINUE CURRENT MEDICATIONS PRESCRIBED. STAFF AGREEABLE WITH PLAN 3. ALL PATIENT QUESTIONS ANSWERED RELATED TO MEDICATIONS, PLAN OF CARE, AND EXPECTED OUTCOMES. 4. SAFETY PLAN DISCUSSED. JUJU CARMICHAEL NP Apr 27, 2019 14:43
--- NOTE | 2019-04-27 18:20 | NUR ---
PIRP P: ALTERATION IN MOOD, CONFUSION I: Q15 MIN MONITORING, REDIRECT WITH VERBALIZATION, GIVE CLEAR AND SIMPLE INSTRUCTIONS, RE-ORIENT TO SURROUNDINGS, PROVIDE 1:1 TO ENCOURAGE EXPRESSION OF FEELINGS, PROVIDE TASK-ORIENTED ACTIVITIES, MONITOR FOR CHANGES IN USUAL BEHAVIOR, GIVE MEDICATIONS ORDERED, REINFORCE RELAXATION TECHNIQUES, ALTERNATE REST/ACTIVITY R: PT HAS LABILE AFFECT THROUGHOUT SHIFT, HAS NOT EXHIBITED THREATENING OR COMBATIVE BEHAVIORS. UNABLE TO ANSWER QUESTIONS APPROPRIATELY D/T COGNITION. TAKES MEDICATIONS ORDERED, DOES NOT PARTICIPATE IN GROUP ACTIVITIES. WANDERS CHAMBERLAIN FREQUENTLY AND HAS SUCCESSFULLY BEEN REDIRECTED OUT OF OTHERS' ROOMS. TAKES MEDICATIONS ORDERED, REQUIRES ASSISTANCE WITH FEEDING, HAS BEEN COOPERATIVE WITH ADLS. P: REDIRECT WITH VERBALIZATION, USE CALM APPROACH, RE-ORIENT TO SURROUNDINGS NEEDED
--- NOTE | 2019-04-27 19:00 | NUR ---
RECEIVED CARE OF PATIENT AFTER REPORT RECEIVED FROM BI FUENTES R.N. PATIENT WANDERING IN HALLWAY, NO DISTRESS NOTED.
[2019-04-27 19:19] VITALS: BP 124/59
[2019-04-27] MEDS: CYMBALTA PO SCH (20:30)
[2019-04-27] MEDS: RISPERDAL PO SCH (20:32)
[2019-04-27] MEDS: ARICEPT ODT PO SCH (20:32)
[2019-04-28] MEDS: DEPAKOTE SPRINKLE PO SCH ×3 (09:00→20:03)
[2019-04-28] MEDS: NAMENDA PO SCH ×3 (09:00→20:03)
[2019-04-28 10:09] VITALS: BP 138/82
--- NOTE | 2019-04-28 13:01 | NUR ---
TELEMED PT WAS SEEN BY Thierno HUERTA NP. NO NEW ORDERS RECEIVED @ THIS TIME. PLANS FOR POSSIBLE DISCHARGE THIS WEEK.
--- NOTE | 2019-04-28 13:08 | PRM.PN ---
Mood: continues to be tearful, intermittent, Sleep: 10 hours, needs prompting by staff that is morning/day time Appetite: well, needs prompting, assist Suidical thoughts: does not make hopeless statements Homicidal thoughts: no statements Recent stressors: transfer to inpatient from [facility] Family support: she does not recognize/talk of it Aggressive Behavior: not present Ability to Perform ADL'sc: needs assist Psychotic sympstoms: does not appear to respond to internal Manic Symptoms: wanders only moments then up thn to any bed, Living situation: was at [facility] memory care Illicit Drug usec: na Alcoholo use: na Tobacco use: na Family,PT,Surgical,&Current HX: (1) Delusional disorder (2) Dementia Anxity Symptoms: does not appear distressed Anger/Irritablility: not present Muscle Strength & Tone: Rigidity (some rigidness in way she gets up from chair, ) Gait & Station: Ataxic (more of gentle, soft step- glide type move) Appearance: Disheveled, Normal weight Attitude & Behaviour: Poor eye contact Mood & Affect: Constricted Orientation: Disoriented to person (appears to answer to adrianne does not really appear to be able to list her name), Disoriented to place, Disoriented to time, Disoriented to situation Attention/Concentration: Poor attention, Poor concentration Speech: Impaired (will state rhyming to a word she picks from question) Judgement/Insight: Poor judgement, Poor insight Thought Process: Loose Language: Palestinian Thought content/Abnormal/Psych: None/normal (not oriented, perceptions unknown) Fund of Knowledge: WNL Associations: KRYSTA Memory (recent and remote): Gross int/not form assess (recent and remote severely impaired) Constitutional: None Neurological: None Psychiatric: Crying (psuedo bulbar of emotions, baseline of tears randomly) [place] I: delusional disorder, dementia [place] IV: return to memory care at [facility] Assessment/Plan Assessment/Plan Patient History: Patient reports no known family medical history. Plan NURSING: easily redirected, wandering all day, not combative, does not stay oriented. plan for discharge for SNF, memory unit last medication change; 04/24/19 depakote increased to 250mg bid she will state rhyming words randomly, not generally able to answer questions PATIENT: Does not appear to recognize I am talking to her much of the time, can follow simple direction of nurse when she asks her to sit in chair. does say "yes" to lunch then says "nothing" as what she had for lunch she cannot tell me her name, says "dorie" "yes" to adrianne being her name upon the 3rd attempt, Vital Signs Date Time Temp Pulse Resp B/P (MAP) Pulse Ox O2 Delivery O2 Flow Rate FiO2 04/28/19 10:09 98.6 80 16 138/82 (100) 98 Room Air Allergies Coded Allergies Type Severity Reaction Last Updated Verified No Known Allergies 09/28/17 No Psychotropics: Depakote er 250mg bid Risperdal 1.5 mg at hs Namenda 10mg po BID Aricept 10mg po HS Cymbalta 60mg daily SUMMARY: SEVERE MEMORY IMPAIRMENT FOR RECENT AND REMOTE, CAN UNDERSTAND SIMPLE DIRECTIONS, CAN BE REDIRECTED WITHOUT SHOW OF AGGRESSION, DOES NOT ANSWER QUESTION CORRECTLY. CONSENT: Consent was obtained bypatientfor telemedicine visit. Consent was obtained for the presence of staff member [facility]. [facility] ASSESSMENT: DELUSIONAL DISORDER, DEMENTIA PLAN: 1. CONTINUE BEHAVIORAL HEALTH MANAGEMENT. 2. CONTINUE CURRENT MEDICATIONS PRESCRIBED. STAFF AGREEABLE WITH PLAN 3. ALL PATIENT QUESTIONS ANSWERED RELATED TO MEDICATIONS, PLAN OF CARE, AND EXPECTED OUTCOMES. 4. SAFETY PLAN DISCUSSED 5. PLAN FOR DISCHARGE TO MEMORY CARE UNIT/SNF NEXT WEEK, SHE IS REDIRECTABLE, NO AGGRESSION TO STAFF OR PATIENTS 6. VPA LEVEL IS SCHEDULED FOR 04/29/2019 AHMET HUERTA NP Apr 28, 2019 13:08
--- NOTE | 2019-04-28 16:57 | NUR ---
PIRP P: ALTERATION IN MOOD, CONFUSION I: Q15 MIN MONITORING, REDIRECT WITH VERBALIZATION, PROVIDE SAFE AND SUPPORTIVE ENVIRONMENT, GIVE CLEAR AND SIMPLE INSTRUCTIONS, RE-ORIENT TO SURROUNDINGS, PROVIDE 1:1 TO ENCOURAGE EXPRESSION OF FEELINGS, PROVIDE TASK-ORIENTED ACTIVITIES, MONITOR FOR CHANGES IN USUAL BEHAVIOR, GIVE MEDICATIONS ORDERED, ALTERNATE REST/ACTIVITY R: PT ALERT AND ORIENTED TO SELF, EXHIBITS FLAT, WITHDRAWN AFFECT. WANDERS CHAMBERLAIN AND FREQUENTLY ATTEMPTS TO ENTER OTHER ROOMS, IS EASILY REDIRECTED WITH VERBALIZATION. UNABLE TO ANSWER ASSESSMENT QUESTIONS APPROPRIATELY, DOES NOT PARTICIPATE IN GROUP ACTIVITIES, TAKES MEDICATIONS ORDERED. HAS NOT EXHIBITED THREATENING OR COMBATIVE BEHAVIORS, NO HALLUCINATIONS OR DELUSIONS NOTED. REQUIRES ASSIST WITH FEEDING AND TOILETING, COOPERATIVE WITH ADLS. P: GIVE CLEAR AND SIMPLE INSTRUCTIONS, RE-ORIENT NEEDED
[2019-04-28 19:26] VITALS: BP 118/59
[2019-04-28] MEDS: RISPERDAL PO SCH (20:03)
[2019-04-28] MEDS: ARICEPT ODT PO SCH (20:03)
[2019-04-28] MEDS: CYMBALTA PO SCH (20:03)
--- NOTE | 2019-04-29 03:37 | NUR ---
PIRP- P- ALTERATION IN MOOD I- PROVIDE SAFE AND SUPPORTIVE ENVIRONMENT,PROVIDE MEDICATION ORDERED AND Q 15 MIN. MONITORING. R- PT. WANDERED, EXHIBITED LOOSE ASSOCIATION AND FLIGHT OF IDEAS. TALKED ABOUT THE BABY. PT. UNABLE TO ANSWER QUESTIONS APPROPRIATELY. EASILY REDIRECTED WITH VERBALIZATION. PT. TOLD NURSE SHE WANTED TO EAT , SNACKS WERE PROVIDED,PT ATE AND TOOK MEDICATION WITH PROMPTING. AT TIMES ATTEMPTED TO GO INTO PEER'S ROOM AND REQUIRED REDIRECTING. WAS ASSISTED WITH HS ADLS AND TO BED.RESTING IN BED WITH EYES CLOSED AT THIS TIME. P- WILL CONTINUE WITH CURRENT TX. PLAN.
[2019-04-29] MEDS: DEPAKOTE SPRINKLE PO SCH ×2 (09:00→20:36)
[2019-04-29] MEDS: NAMENDA PO SCH ×2 (09:00→20:37)
[2019-04-29 10:20] VITALS: BP 150/85
--- NOTE | 2019-04-29 10:33 | PRM.PN ---
Mood: some tearfulness, she will look for babies, babies gone Sleep: 7.25 hours Appetite: she will eat, has to be prompted, she does not know how to use utensil Suidical thoughts: not been issue Homicidal thoughts: not been issue Recent stressors: transfer to unit versus snf Family support: miniimal to no visitors Aggressive Behavior: easily redirects out of others rooms Ability to Perform ADL'sc: follow simple command briefly Psychotic sympstoms: does not respond Manic Symptoms: when awake constant wandering, will tap door, not exit seeking Living situation: was at snf, memory care Illicit Drug usec: not an issue Alcoholo use: na Tobacco use: na Family,PT,Surgical,&Current HX: (1) Dementia (2) Delusional disorder Anxity Symptoms: no appearance Anger/Irritablility: no anger Muscle Strength & Tone: WNL Gait & Station: Normal stance/post/gait (floating walk, not rigid, not short steps) Appearance: Disheveled, Casual attire Attitude & Behaviour: Cooperative/Pleasant Mood & Affect: Blunted Orientation: Disoriented to person, Disoriented to place, Disoriented to time, Disoriented to situation (answers to adrianne, cannot state name) Attention/Concentration: Fair attention, Poor concentration Speech: Reg rate/vol/rhyth/prosod Judgement/Insight: Fair judgement, Poor insight Thought Process: Loose Language: Indian Thought content/Abnormal/Psych: None/normal Fund of Knowledge: WNL Associations: WNL/Normal Associations Memory (recent and remote): Gross int/not form assess (recent and remote severe impairment) Constitutional: None Neurological: None Psychiatric: Crying (crying is her baseline) [place] I: delusional, dementia [place] IV: return to snf Assessment/Plan Assessment/Plan Patient History: Patient reports no known family medical history. Plan NURSING: steadily wanders when awake, sleeps well at night, easily redirected does not become angry blunted but will smile minimally, baseline tearfulness at times PATIENT: does not want to participate today, looks at camera appears to process simple command minimally for this provider. Laboratory Tests 04/29/19 05:40: Valproic Acid (Depakene) Level 66 04/29/19 BP 150/85, HR 86 RESP 18, 97.5 100% SATURATION, DENIES PAIN Psychotropics: Depakote er 250mg bid Risperdal 1.5 mg at hs Namenda 10mg po BID Aricept 10mg po HS Cymbalta 60mg daily SUMMARY: SEVERE MEMORY IMPAIRMENT FOR RECENT AND REMOTE, CAN UNDERSTAND SIMPLE DIRECTIONS, CAN BE REDIRECTED WITHOUT SHOW OF AGGRESSION, DOES NOT ANSWER QUESTION CORRECTLY. CONSENT: Consent was obtained bypatientfor telemedicine visit. Consent was obtained for the presence of staff member throughoutencounter. Privacy was maintained throughoutencounter. ASSESSMENT: DELUSIONAL DISORDER, DEMENTIA PLAN: 1. CONTINUE BEHAVIORAL HEALTH MANAGEMENT. 2. CONTINUE CURRENT MEDICATIONS PRESCRIBED. STAFF AGREEABLE WITH PLAN 3. ALL PATIENT QUESTIONS ANSWERED RELATED TO MEDICATIONS, PLAN OF CARE, AND EXPECTED OUTCOMES. 4. SAFETY PLAN DISCUSSED 5. PLAN FOR DISCHARGE TO MEMORY CARE UNIT/SNF NEXT WEEK, SHE IS REDIRECTABLE, NO AGGRESSION TO STAFF OR PATIENTS AHMET HUERTA NP Apr 29, 2019 10:33
--- NOTE | 2019-04-29 11:00 | NUR ---
TELEMED PT WAS SEEN BY Thierno HUERTA NP. NO NEW ORDERS RECEIVED @ THIS TIME.
--- NOTE | 2019-04-29 17:33 | NUR ---
PIRP P: ALTERATION IN MOOD, CONFUSION I: Q15 MIN MONITORING, REDIRECT WITH VERBALIZATION, PROVIDE SAFE AND SUPPORTIVE ENVIRONMENT, GIVE CLEAR AND SIMPLE INSTRUCTIONS, RE-ORIENT TO SURROUNDINGS, PROVIDE 1:1 TO ENCOURAGE EXPRESSION OF FEELINGS, PROVIDE TASK-ORIENTED ACTIVITIES, MONITOR FOR CHANGES IN USUAL BEHAVIOR, GIVE MEDICATIONS ORDERED, ALTERNATE REST/ACTIVITY R: PT RESTLESS WHILE AWAKE, UNABLE TO PARTICIPATE IN MAJORITY OF GROUP ACTIVITIES. EXHIBITS PERIODS OF TEARFULNESS, UNABLE TO COMMUNICATE EFFECTIVELY D/T COGNITIVE IMPAIRMENT. TAKES MEDICATIONS ORDERED, HAS BEEN COOPERATIVE WITH ADLS. HAS NOT EXHIBITED THREATENING OR COMBATIVE BEHAVIORS. WANDERS CHAMBERLAIN FREQUENTLY AND @ TIMES ATTEMPTS TO OPEN LOCKED DOORS, EASILY DISTRACTED/REDIRECTED WITH VERBALIZATION. UNABLE TO ANSWER ASSESSMENT QUESTIONS APPROPRIATELY. NO HALLUCINATIONS OR DELUSIONS NOTED. P: PROVIDE SAFE AND SUPPORTIVE ENVIRONMENT.
[2019-04-29 19:10] VITALS: BP 107/63
[2019-04-29] MEDS: RISPERDAL PO SCH (20:36)
[2019-04-29] MEDS: ARICEPT ODT PO SCH (20:36)
[2019-04-29] MEDS: CYMBALTA PO SCH (20:37)
--- NOTE | 2019-04-30 04:52 | NUR ---
PIRP P- ALTERATION IN MOOD AND CONFUSION I- PROVIDE SAFE AND SUPPORTIVE ENVIRONMENT,PROVIDE MEDICATION ORDERED AND Q 15 MIN. MONITORING R- PT. ORIENTED TO NAME NOT MONTH OR YEAR. WANDERS IN UNIT ,ATTEMPTING TO OPEN DOORS AT TIMES AND REQUIRES REDIRECTING. EASILY REDIRECTED. RAMBLES AT TIMES. ATTENDED GROUP,ATE SNACK AND LISTENED TO MUSIC. TOOK MEDICATION ORDERED. EXHIBITS MEMORY LOSS AND CONFUSION. WAS ASSISTED WITH HS CARE AND TO BED. RESTING IN BED WITH EYES CLOSED AT THIS TIME. P- WILL CONTINUE TO PROVIDE 1:1 INTERVENTION ALLOWING PT. TO EXPRESS THOUGHTS AND FEELINGS. REDIRECT NEEDED.
--- NOTE | 2019-04-30 07:26 | NUR ---
Report Assumed care of patient after report received from Franci Mcneil RN at shift change.
[2019-04-30 08:29] VITALS: BP 147/87
--- NOTE | 2019-04-30 08:40 | PRM.PN ---
Mood: STABLE Sleep: SLEPT 8.75 HOURS Appetite: GOOD Suidical thoughts: DENIES Homicidal thoughts: DENIES Recent stressors: COGNITIVE DECLINE Family support: POOR Aggressive Behavior: NONE NOTED Ability to Perform ADL'sc: ASSISTANCE NEEDED Psychotic sympstoms: NONE NOTED Manic Symptoms: NONE NOTED Living situation: SNF Illicit Drug usec: NONE Alcoholo use: NONE Tobacco use: NONE Family,PT,Surgical,&Current HX: (1) Dementia (2) Delusional disorder Anxity Symptoms: IMPROVING Anger/Irritablility: NONE NOTED. Muscle Strength & Tone: WNL Gait & Station: WNL Appearance: Well groomed/hygience, Casual attire, Normal weight, Appears age stated Attitude & Behaviour: Cooperative/Pleasant, Poor eye contact Mood & Affect: Flat Orientation: Disoriented to place, Disoriented to time, Disoriented to situation Attention/Concentration: Poor attention, Poor concentration Speech: Reg rate/vol/rhyth/prosod Judgement/Insight: Poor judgement, Poor insight Thought Process: Loose Language: Syriac Thought content/Abnormal/Psych: None/normal Fund of Knowledge: Other (LIMITED) Associations: KRYSTA Memory (recent and remote): Recent memory repaired, Remote memory repaired Constitutional: None Neurological: None Psychiatric: None [place] I: DELUSIONAL DISORDER, DEMENTIA [place] II: DEFERRED [place] III: SEE MEDICAL CHART [place] IV: COGNTIVE DECLINE [place] V: 40 Assessment/Plan Assessment/Plan Patient History: Patient reports no known family medical history. Plan Vital Signs Date Time Temp Pulse Resp B/P (MAP) Pulse Ox O2 Delivery O2 Flow Rate FiO2 04/30/19 08:29 98.2 81 16 147/87 (107) 98 Room Air Allergies Coded Allergies Type Severity Reaction Last Updated Verified No Known Allergies 09/28/17 No Intake and Output 04/30/19 07:00 Intake Total 1072 ml Balance 1072 ml Intake Oral 1072 ml # Voids 3 THE PATIENT WAS SEEN BY JUJU CARMICHAEL VIA TELEMEDICINE EQUIPMENT (SUPPORTED BY [facility]) ALONG WITH THE TREATMENT TEAM. SHE HAS BEEN SLEEPING AND EATING WELL. DAYTIME ENERGY IS WELL. SHE IS TOLERATING HER MEDICATIONS WELL. SHE IS POOT A HISTORIAN. NO PRN MEDICATIONS HAVE BEEN REQUIRED RECENTLY. MOST RECENT VPA LEVEL WAS 66. SHE SEEMS TO BE AT HER BASELINE SHE IS EASILY REDIRECTED BUT REQUIRED CONSTANT REDIRECTION. ASSESSMENT: DELUSIONAL DISORDER, DEMENTIA PLAN: 1. DISCHARGE TO PREVIOUS SNF. 2. CONTINUE CURRENT MEDICATIONS PRESCRIBED. STAFF AGREEABLE WITH PLAN 3. ALL PATIENT QUESTIONS ANSWERED RELATED TO MEDICATIONS, PLAN OF CARE, AND EXPECTED OUTCOMES. 4. SAFETY PLAN DISCUSSED. JUJU CARMICHAEL NP Apr 30, 2019 08:40
[2019-04-30] MEDS ORDERED: DULO30CA2 PO (09:02)
[2019-04-30] MEDS ORDERED: DIVA125C2 PO (09:02)
[2019-04-30] MEDS: NAMENDA PO SCH ×2 (09:58→20:14)
[2019-04-30] MEDS: DEPAKOTE SPRINKLE PO SCH ×2 (09:58→20:13)
--- NOTE | 2019-04-30 10:00 | NUR ---
Telemed Patient seen by Dr. Paiz at 0840. No changes made. DC planning possibly today. Addendum: 04/30/19 at 1625 by Nila Dorsey RN -M/S RN Medical Information Officer from [facility], [place], came to evaluate patient at approximately 1500. Patient came to [facility] from [facility] after she was medically cleared [facility] the [facility]. Patient will not Discharge today. Discharge plan possibly tomorrow 05/01/19, pending patient's acceptance back to [facility] in [place].
--- NOTE | 2019-04-30 10:43 | NUR ---
DISCHARGE PLANNING: SW CALLED AND VISITED WITH [facility] AND LET HER KNOW PT IS AT BASELINE AND ASKED THEM TO SEND A WORKER TO RE-EVALUATE PT TO SEE IF THEY WOULD TAKE HER BACK. KIRK STATED "I WILL SEND SOMEONE THIS AFTERNOON". SW FAXED UPDATED CLINICAL. PT CURRENTLY PENDING ACCEPTANCE BACK INTO [facility]. SW TO CONTINUE TO FOLLOW AND ASSIST WITH DISCHARGE PLANNING NEEDS.
--- NOTE | 2019-04-30 16:05 | NUR ---
ANXIETY PT IS UNABLE TO BE EASILY REDIRECTED WHEN GOING INTO OTHER PT ROOMS WHEN WALKING IN THE CHAMBERLAIN. DOES KNOW WHERE HER ROOM IS AND GOES AND LAYS DOWN AT TIMES. DOES GET UP AND WALK THE HALLS AND AROUND THE DAY ROOM-WHEN IN THE HALLS SEES A DOOR OPEN AND GOES IN IT THINKING CAN. ATIVAN 0.5MG GIVEN PO. WILL MONITOR.
--- NOTE | 2019-04-30 17:48 | NUR ---
PIRP P: DEMENTIA WITH BEHAVIOR DISTURBANCES; ALTERED THOUGHT PROCESS; DTO I: Provide safe and supportive environment; [place] to reality and redirect patient as needed, Provide medications as ordered; Explain need/purpose for medication; 1:1 allowing patient to express thoughts and feelings; Assess for symptoms of aggression, psychosis, depression, anxiety; Monitor q 15 minutes, provide and encourage group activity; Assist patient to eat, bathe and toilet as needed R: Patient restless and anxious today as noted by rambling and pacing, patient redirected out of other patient's room numerous times today; Ativan provide PO dose anxiety which helped to calm patient; Patient assisted to shower and change clothes; Patient assisted to eat her meals; Unable to determine depression, No aggression noted; P: Discharge plan in place, see note regarding the same; continue care
--- NOTE | 2019-04-30 18:27 | NUR ---
FOLLOW UP PT IS CALMER, AND IS LAYING IN HER BED AT THIS TIME. IS EASILY REDIRECTED.
[2019-04-30 19:30] VITALS: BP 125/49
[2019-04-30] MEDS: CYMBALTA PO SCH (20:13)
[2019-04-30] MEDS: ARICEPT ODT PO SCH (20:14)
[2019-04-30] MEDS: RISPERDAL PO SCH (20:14)
--- NOTE | 2019-05-01 05:29 | NUR ---
PIRP- P- DEMENTIA WITH BEHAVIORAL DISTURBANCE,DTO AND ALTERATION IN MOOD I- PROVIDE MEDICATION ORDERED, PROVIDE SAFE AND SUPPORTIVE ENVIRONMENT AND Q 15 MIN. MONITORING R- PT. ORIENTED TO NAME. UNABLE TO ANSWER ASSESSMENT QUESTIONS. WANDERED IN HALLWAY AND ATTEMPTED TO GO INTO PEER'S ROOMS AND REQUIRED REDIRECTING. ATTENDED GROUP BUT DID NOT PARTICIPATED IN GROUP ACTIVITY. ATE SNACK AND TOOK MEDICATION WITH ENCOURAGEMENT. RESTLESS . WAS ASSISTED WITH HS CARE AND TO BED. RESTING IN BED WITH EYES CLOSED AT THIS TIME. P- WILL CONTINUE TO REDIRECT NEEDED.
--- NOTE | 2019-05-01 06:52 | NUR ---
Report Assumed care of patient as charge nurse after report received from Franci Mcneil RN at change of shift.
[2019-05-01 08:08] VITALS: BP 158/98
[2019-05-01 08:11] VITALS: BP 158/102
[2019-05-01] MEDS: NAMENDA PO SCH (09:00)
[2019-05-01] MEDS: DEPAKOTE SPRINKLE PO SCH (09:00)
[2019-05-01 11:55] VITALS: BP 112/70
[2019-05-01 13:46] VITALS: BP 112/70
--- NOTE | 2019-05-01 15:44 | NUR ---
Discharge Patient discharged back to her residence in [facility]. Representatives from [facility] arrived at 1330, patient assisted to vehicle at 1345. Patient's belongings were accounted for and verified except for 2 bras. Patient had her brief changed just prior to discharge; showered yesterday, sponge bath today. Wearing clean clothes. Report had been given earlier to Faustino Weeks LVN. This RN also faxed a copy of patient's current medication list earlier in the day as per request of RADHA Harmon. patient left ambulatory to the exit with RADHA Quarles in attendance.
== END 2019-05-01 15:57 | DRG 885 ==
LOC: ER 20:35 → EEVIPCON 20:35 → GP 04-22 00:34 → EDPENDDISTM 05-01 13:45
PROVIDERS: ADMIT Psychiatry & Neurology Psychiatry; ATTEND Psychiatry & Neurology Psychiatry
DX: F22 Delusional disorders (principal); N18.9 Chronic kidney disease, unspecified; I12.9 Hypertensive chronic kidney disease with stage 1 through stage 4 chronic kidney disease, or unspecified chronic kidney disease; F39 Unspecified mood [affective] disorder; F41.9 Anxiety disorder, unspecified; Z90.49 Acquired absence of other specified parts of digestive tract; M19.90 Unspecified osteoarthritis, unspecified site; F01.50 Vascular dementia, unspecified severity, without behavioral disturbance, psychotic disturbance, mood disturbance, and anxiety
CPT/HCPCS: 36415; 80053; 80061; 80164; 80307; 81002; 82550; 82553; 83036; 83880; 84443; 84484; 85025; 86592; 93005; 97150; 97165; 99285; G0378; J2001; J8499